=== PATIENT | female | born 1940 | race Caucasian/White ===

== ENCOUNTER 2017-07-16 23:00 | Inpatient (IN) | payer OTHER, MEDICARE ==
[~2017-07-16] VITALS: Ht 160 cm; Wt 61.8 kg
[2017-07-17] VITALS (27 sets, daily range): BP systolic 77–159; BP diastolic 45–72
[2017-07-17] MEDS ORDERED: ALBUTEROL SULF 2.5 MG/0.5ML(0.5%) NEB SOLN NEB ONE (00:45)
[2017-07-17] MEDS ORDERED: IPRATROPIUM BROM 0.5 MG/2.5ML INH SOL NEB ONE (00:45)
[2017-07-17] MEDS ORDERED: methylPREDNISolone SOD SUCC 125 MG/2 ML VL IV ONE (00:45)
[2017-07-17] MEDS ORDERED: ETOMIDATE (2MG/ML) 20ML VIAL IV ONE ×2 (01:21→02:00)
[2017-07-17] MEDS ORDERED: SUCCINYLCHOLINE CHLORIDE 20 MG/ML 10ML VIAL IV ONE ×2 (01:21→02:00)
[2017-07-17] MEDS ORDERED: MIDAZOLAM DRIP 50 mg/50mL 50 ML IV ONE (01:38)
[2017-07-17] MEDS: MIDAZOLAM DRIP 50 mg/50mL 50 ML IV SCH ×4 (02:07→22:41)
[2017-07-17 02:41] LABS: Urine Bacteria FEW /hpf (None Seen); Urine Blood TRACE /uL (Negative); Urine Mucus FEW (None Seen); Urine Specific Gravity 1.019 (1.001-1.035); Urine WBC 21 /hpf (0 - 5)
[2017-07-17] MEDS ORDERED: SODIUM CHLORIDE 0.9% 1,000 ML IV ONE (03:00)
[2017-07-17] MEDS ORDERED: MORPHINE SULFATE 4 MG/ML SYR/VIAL IV PRN (07:15)
[2017-07-17] MEDS ORDERED: NITROGLYCERIN 0.4 MG SL TAB SL PRN (07:15)
[2017-07-17] MEDS ORDERED: FUROSEMIDE 20 MG/2 ML VIAL IV ONE (07:45)
[2017-07-17 07:47] LABS: Basophils # (auto) 0 uL; Basophils % (auto) 0.5 % (0.0-2.0); Eosinophils # (auto) 0 uL; Hematocrit 33.4 % (36.0-46.0); Lymphocytes # (auto) 0.2 uL; Lymphocytes % (auto) 3.4 % (10.0-50.0); Mean Corpuscular Hgb Conc. 32.9 g/dL (32.0-36.0); Monocytes # (auto) 0.2 uL; Monocytes % (auto) 3.6 % (0.0-12.0); Neutrophils # (auto) 6.1 uL; Neutrophils % (auto) 92.5 % (37.0-80.0); Nucleated Red Blood Cells % 0.1 %; Platelet Count (auto) 174 10^3/uL (140-450); Red Blood Cells 3.67 10^6/uL (4.0-5.20); Red Cell Distribution Width 13.9 % (11.8-14.3); White Blood Cell 6.6 10^3/uL (4.4-10.8)
[2017-07-17 08:13] LABS: INR 0.98 (0.9-1.15); Partial Thromboplastin Time 25.9 sec (22.64-33.71); Prothrombin Time 10.7 sec (9.37-12.3)
[2017-07-17 08:18] LABS: Albumin 3.1 g/dL (3.4-5.0); BUN/Creatinine Ratio 25.6; Bilirubin, Total 0.3 mg/dL (0.2-1.0); Calcium 7.9 mg/dL (8.5-10.1); Potassium 3.7 mmol/L (3.5-5.1); Total Protein 6.8 g/dL (6.4-8.2)
[2017-07-17] MEDS: PANTOPRAZOLE 40 MG TAB PO SCH (10:00)
[2017-07-17] MEDS ORDERED: IOHEXOL 350 MG/ML 100ML IJ ONE (10:31)
[2017-07-17] MEDS ORDERED: LORazepam 2MG/ML-1ML VIAL IV PRN (12:30)
[2017-07-17] MEDS ORDERED: ASPirin 300 MG RECTAL SUPP PR ONE (12:30)
[2017-07-17] MEDS: ALBUTEROL SULF 2.5 MG/0.5ML(0.5%) NEB SOLN NEB SCH ×3 (12:33→23:46)
[2017-07-17] MEDS: IPRATROPIUM BROM 0.5 MG/2.5ML INH SOL NEB SCH ×3 (12:33→23:46)
[2017-07-17 13:53] LABS: Cholesterol 175 mg/dL (< 200); HDL Cholesterol 72 mg/dL (40-59); LDL Cholesterol 103 mg/dL (< 100); Triglycerides 48 mg/dL (< 150)
[2017-07-17] MEDS ORDERED: ONDANSETRON HCL 4 MG/2 ML VIAL IV PRN (16:45)
[2017-07-17] MEDS ORDERED: ACETAMINOPHEN 650 mg PER 20 mL UD GT PRN (16:45)
[2017-07-17] MEDS: methylPREDNISolone SOD SUCC 40 MG/ML VL IV SCH (17:50)
[2017-07-17] MEDS: FUROSEMIDE 20 MG/2 ML VIAL IV SCH (18:00)
[2017-07-17] MEDS: PIPERACILLIN-TAZOB 3.375GM 50 ML IV SCH (18:05)
[2017-07-17] MEDS: POTASSIUM CHL 10% (20 MEQ/15ML) 15ml ORAL SOLN GT SCH (18:05)
[2017-07-17] MEDS ORDERED: ALBUMIN 25% 50 ML IV ONE (18:15)
[2017-07-17] MEDS: ATORVASTATIN 20 MG TAB PO SCH (22:42)
[2017-07-17] MEDS: BUDESONIDE (INHALATION) 0.5 MG/2 ML NEB NEB SCH (23:46)
[2017-07-18] VITALS (91 sets, daily range): BP systolic 101–172; BP diastolic 44–83
[2017-07-18 03:56] LABS: Basophils # (auto) 0 uL; Basophils % (auto) 0.1 % (0.0-2.0); Eosinophils # (auto) 0 uL; Hematocrit 28.9 % (36.0-46.0); Hemoglobin 9.7 g/dL (12.2-16.2); Lymphocytes # (auto) 0.5 uL; Lymphocytes % (auto) 6.4 % (10.0-50.0); Mean Corpuscular Hemoglobin 30.1 pg (28.0-32.0); Mean Corpuscular Hgb Conc. 33.6 g/dL (32.0-36.0); Mean Corpuscular Volume 89.4 fL (80.0-100.0); Monocytes # (auto) 0.4 uL; Monocytes % (auto) 5.6 % (0.0-12.0); Neutrophils # (auto) 6.9 uL; Neutrophils % (auto) 87.9 % (37.0-80.0); Platelet Count (auto) 177 10^3/uL (140-450); Red Blood Cells 3.23 10^6/uL (4.0-5.20); White Blood Cell 7.8 10^3/uL (4.4-10.8)
[2017-07-18 04:06] LABS: BUN/Creatinine Ratio 36.6; Potassium 3.5 mmol/L (3.5-5.1)
[2017-07-18] MEDS: IPRATROPIUM BROM 0.5 MG/2.5ML INH SOL NEB SCH ×3 (05:35→19:11)
[2017-07-18] MEDS: ALBUTEROL SULF 2.5 MG/0.5ML(0.5%) NEB SOLN NEB SCH ×3 (05:35→19:11)
[2017-07-18] MEDS: BUDESONIDE (INHALATION) 0.5 MG/2 ML NEB NEB SCH ×2 (05:35→19:11)
[2017-07-18] MEDS: PIPERACILLIN-TAZOB 3.375GM 50 ML IV SCH ×4 (06:00→18:09)
[2017-07-18] MEDS: FUROSEMIDE 20 MG/2 ML VIAL IV SCH ×2 (06:09→18:03)
[2017-07-18] MEDS: methylPREDNISolone SOD SUCC 40 MG/ML VL IV SCH ×4 (06:09→18:04)
[2017-07-18] MEDS: MIDAZOLAM DRIP 50 mg/50mL 50 ML IV SCH (10:30)
[2017-07-18] MEDS: ENOXAPARIN SOD 40 MG/0.4 ML SYRINGE SC SCH (10:37)
[2017-07-18] MEDS: PANTOPRAZOLE 40 MG TAB PO SCH (10:38)
[2017-07-18] MEDS: POTASSIUM CHL 10% (20 MEQ/15ML) 15ml ORAL SOLN GT SCH ×2 (10:39→21:34)
[2017-07-18] MEDS ORDERED: Nutren Pulmonary 1 Liter GT SCH (14:15)
[2017-07-18] MEDS: ATORVASTATIN 20 MG TAB PO SCH (21:34)
[2017-07-18 22:16] LABS: Calcium 8.3 mg/dL (8.5-10.1); Magnesium 2.2 mg/dL (1.6-2.6); Potassium 3.5 mmol/L (3.5-5.1)
[2017-07-18 22:18] LABS: BUN/Creatinine Ratio 34.8
[2017-07-19] VITALS (89 sets, daily range): BP systolic 129–208; BP diastolic 57–126
[2017-07-19] MEDS: BUDESONIDE (INHALATION) 0.5 MG/2 ML NEB NEB SCH ×3 (00:08→19:25)
[2017-07-19] MEDS: ALBUTEROL SULF 2.5 MG/0.5ML(0.5%) NEB SOLN NEB SCH ×4 (00:08→19:25)
[2017-07-19] MEDS: IPRATROPIUM BROM 0.5 MG/2.5ML INH SOL NEB SCH ×4 (00:08→19:25)
[2017-07-19] MEDS: PIPERACILLIN-TAZOB 3.375GM 50 ML IV SCH ×5 (00:23→23:02)
[2017-07-19] MEDS: methylPREDNISolone SOD SUCC 40 MG/ML VL IV SCH ×5 (00:23→22:12)
[2017-07-19 04:37] LABS: BUN/Creatinine Ratio 35.4; Calcium 8.4 mg/dL (8.5-10.1); Potassium 3.9 mmol/L (3.5-5.1)
[2017-07-19] MEDS: MIDAZOLAM DRIP 50 mg/50mL 50 ML IV SCH (05:03)
[2017-07-19] MEDS: FUROSEMIDE 20 MG/2 ML VIAL IV SCH ×2 (05:15→18:22)
[2017-07-19] MEDS: POTASSIUM CHL 10% (20 MEQ/15ML) 15ml ORAL SOLN GT SCH ×2 (10:37→21:37)
[2017-07-19] MEDS: PANTOPRAZOLE 40 MG TAB PO SCH (10:37)
[2017-07-19] MEDS: ENOXAPARIN SOD 40 MG/0.4 ML SYRINGE SC SCH (10:38)
[2017-07-19] MEDS ORDERED: CARV25TA55 PO (12:37)
[2017-07-19] MEDS ORDERED: METOPROLOL TARTRATE 1MG/1ML-5ML VIAL IV PRN (17:30)
[2017-07-19] MEDS: CARVEDILOL 12.5 MG TAB PO SCH (21:37)
[2017-07-19] MEDS: ATORVASTATIN 20 MG TAB PO SCH (21:38)
[2017-07-20] VITALS (7 sets, daily range): BP systolic 116–174; BP diastolic 55–95
[2017-07-20 05:23] LABS: Basophils # (auto) 0 uL; Eosinophils # (auto) 0 uL; Hematocrit 34.3 % (36.0-46.0); Hemoglobin 11.6 g/dL (12.2-16.2); Lymphocytes # (auto) 0.4 uL; Lymphocytes % (auto) 4.8 % (10.0-50.0); Mean Corpuscular Hemoglobin 30.4 pg (28.0-32.0); Mean Corpuscular Hgb Conc. 33.9 g/dL (32.0-36.0); Mean Corpuscular Volume 89.8 fL (80.0-100.0); Monocytes # (auto) 0.5 uL; Monocytes % (auto) 6.5 % (0.0-12.0); Neutrophils # (auto) 6.5 uL; Neutrophils % (auto) 88.7 % (37.0-80.0); Nucleated Red Blood Cells % 0.1 %; Platelet Count (auto) 188 10^3/uL (140-450); Red Blood Cells 3.82 10^6/uL (4.0-5.20); Red Cell Distribution Width 14.1 % (11.8-14.3); White Blood Cell 7.4 10^3/uL (4.4-10.8)
[2017-07-20 05:31] LABS: BUN/Creatinine Ratio 40.9; Calcium 8.5 mg/dL (8.5-10.1); Potassium 3.5 mmol/L (3.5-5.1)
[2017-07-20] MEDS: PIPERACILLIN-TAZOB 3.375GM 50 ML IV SCH ×2 (05:52→12:00)
[2017-07-20] MEDS: FUROSEMIDE 20 MG/2 ML VIAL IV SCH ×2 (05:52→18:09)
[2017-07-20] MEDS: methylPREDNISolone SOD SUCC 40 MG/ML VL IV SCH ×3 (05:52→23:52)
[2017-07-20] MEDS: LEVOTHYROXINE SODIUM 50 MCG TAB PO SCH (05:52)
[2017-07-20] MEDS: ALBUTEROL SULF 2.5 MG/0.5ML(0.5%) NEB SOLN NEB SCH ×3 (06:25→18:33)
[2017-07-20] MEDS: IPRATROPIUM BROM 0.5 MG/2.5ML INH SOL NEB SCH ×3 (06:25→18:33)
[2017-07-20] MEDS: BUDESONIDE (INHALATION) 0.5 MG/2 ML NEB NEB SCH ×2 (06:26→18:34)
[2017-07-20] MEDS: CARVEDILOL 12.5 MG TAB PO SCH ×2 (09:49→22:30)
[2017-07-20] MEDS: ENOXAPARIN SOD 40 MG/0.4 ML SYRINGE SC SCH (09:53)
[2017-07-20] MEDS: PANTOPRAZOLE 40 MG TAB PO SCH (09:53)
[2017-07-20] MEDS: POTASSIUM CHL 10% (20 MEQ/15ML) 15ml ORAL SOLN GT SCH ×2 (09:54→22:30)
[2017-07-20] MEDS ORDERED: VANCOMYCIN PER PHARMACY 0 MG IV SCH (13:45)
[2017-07-20] MEDS: VANCOMYCIN 750 MG in D5W 5% 250 ML IV SCH (15:00)
[2017-07-20] MEDS: cefTAZidime 1 GM in SODIUM CHL 0.9% 50 ML IV SCH ×2 (15:52→22:30)
[2017-07-20] MEDS ORDERED: cefTRIAXone 1GM/10ml IVPUSH 10 ML IV SCH (21:00)
[2017-07-20] MEDS: ATORVASTATIN 20 MG TAB PO SCH (22:30)
[2017-07-21] VITALS (7 sets, daily range): BP systolic 105–151; BP diastolic 61–77
[2017-07-21] MEDS: IPRATROPIUM BROM 0.5 MG/2.5ML INH SOL NEB SCH ×4 (00:19→18:36)
[2017-07-21] MEDS: ALBUTEROL SULF 2.5 MG/0.5ML(0.5%) NEB SOLN NEB SCH ×4 (00:19→18:36)
[2017-07-21] MEDS: MIDAZOLAM DRIP 50 mg/50mL 50 ML IV SCH (01:52)
[2017-07-21 05:47] LABS: Albumin 2.9 g/dL (3.4-5.0); BUN/Creatinine Ratio 38.9; Bilirubin, Total 0.4 mg/dL (0.2-1.0); Calcium 8.6 mg/dL (8.5-10.1); Potassium 4.1 mmol/L (3.5-5.1); Total Protein 6.8 g/dL (6.4-8.2)
[2017-07-21] MEDS: cefTAZidime 1 GM in SODIUM CHL 0.9% 50 ML IV SCH ×3 (06:18→21:46)
[2017-07-21] MEDS: FUROSEMIDE 20 MG/2 ML VIAL IV SCH (06:18)
[2017-07-21] MEDS: LEVOTHYROXINE SODIUM 50 MCG TAB PO SCH (06:39)
[2017-07-21] MEDS: PANTOPRAZOLE 40 MG TAB PO SCH (09:44)
[2017-07-21] MEDS: POTASSIUM CHL 10% (20 MEQ/15ML) 15ml ORAL SOLN GT SCH (09:44)
[2017-07-21] MEDS: CARVEDILOL 12.5 MG TAB PO SCH ×2 (09:45→21:46)
[2017-07-21] MEDS: ENOXAPARIN SOD 40 MG/0.4 ML SYRINGE SC SCH (09:46)
[2017-07-21] MEDS: FLORASTOR (S. BOULARDII) 250 MG CAP PO SCH (10:55)
[2017-07-21] MEDS: methylPREDNISolone SOD SUCC 40 MG/ML VL IV SCH (12:09)
[2017-07-21] MEDS ORDERED: MIDAZOLAM DRIP 100 mg/100mL NS 100 ML IV SCH (14:00)
[2017-07-21] MEDS: VANCOMYCIN 750 MG in D5W 5% 250 ML IV SCH (15:08)
[2017-07-21] MEDS ORDERED: FUROSEMIDE 40 MG TAB PO SCH (18:00)
[2017-07-21] MEDS: ATORVASTATIN 20 MG TAB PO SCH (21:46)
[2017-07-22] MEDS: IPRATROPIUM BROM 0.5 MG/2.5ML INH SOL NEB SCH ×4 (00:07→18:31)
[2017-07-22] MEDS: ALBUTEROL SULF 2.5 MG/0.5ML(0.5%) NEB SOLN NEB SCH ×4 (00:07→18:31)
[2017-07-22 04:00] VITALS: BP 154/82
[2017-07-22] MEDS: cefTAZidime 1 GM in SODIUM CHL 0.9% 50 ML IV SCH ×3 (06:34→22:13)
[2017-07-22] MEDS: LEVOTHYROXINE SODIUM 50 MCG TAB PO SCH (06:34)
[2017-07-22 07:30] VITALS: BP 141/74
[2017-07-22] MEDS: methylPREDNISolone SOD SUCC 40 MG/ML VL IV SCH (10:23)
[2017-07-22] MEDS: CARVEDILOL 12.5 MG TAB PO SCH ×2 (10:24→22:12)
[2017-07-22] MEDS: POTASSIUM CHL 10% (20 MEQ/15ML) 15ml ORAL SOLN PO SCH (10:26)
[2017-07-22] MEDS: PANTOPRAZOLE 40 MG TAB PO SCH (10:26)
[2017-07-22] MEDS: ENOXAPARIN SOD 40 MG/0.4 ML SYRINGE SC SCH (10:26)
[2017-07-22] MEDS: FUROSEMIDE 40 MG TAB PO SCH (10:26)
[2017-07-22] MEDS: FLORASTOR (S. BOULARDII) 250 MG CAP PO SCH (11:49)
[2017-07-22 11:50] VITALS: BP 106/66
[2017-07-22] MEDS ORDERED: GABA300C10 PO (11:58)
[2017-07-22 15:50] VITALS: BP 119/63
[2017-07-22 19:56] VITALS: BP 114/64
[2017-07-22 21:16] VITALS: BP 117/64
[2017-07-22] MEDS: ATORVASTATIN 20 MG TAB PO SCH (22:12)
[2017-07-22] MEDS: GABAPENTIN 300 MG CAP PO SCH (22:12)
[2017-07-23] VITALS (7 sets, daily range): BP systolic 92–116; BP diastolic 49–69
[2017-07-23] MEDS: IPRATROPIUM BROM 0.5 MG/2.5ML INH SOL NEB SCH ×4 (00:19→19:22)
[2017-07-23] MEDS: ALBUTEROL SULF 2.5 MG/0.5ML(0.5%) NEB SOLN NEB SCH ×4 (00:19→19:22)
[2017-07-23] MEDS: cefTAZidime 1 GM in SODIUM CHL 0.9% 50 ML IV SCH ×3 (06:18→22:18)
[2017-07-23] MEDS: LEVOTHYROXINE SODIUM 50 MCG TAB PO SCH (06:19)
[2017-07-23] MEDS: CARVEDILOL 12.5 MG TAB PO SCH ×2 (10:00→22:17)
[2017-07-23] MEDS: GABAPENTIN 300 MG CAP PO SCH ×2 (10:07→22:18)
[2017-07-23] MEDS: FLORASTOR (S. BOULARDII) 250 MG CAP PO SCH (10:07)
[2017-07-23] MEDS: methylPREDNISolone SOD SUCC 40 MG/ML VL IV SCH (10:07)
[2017-07-23] MEDS: POTASSIUM CHL 10% (20 MEQ/15ML) 15ml ORAL SOLN PO SCH (10:07)
[2017-07-23] MEDS: FUROSEMIDE 40 MG TAB PO SCH (10:07)
[2017-07-23] MEDS: PANTOPRAZOLE 40 MG TAB PO SCH (10:08)
[2017-07-23] MEDS: ENOXAPARIN SOD 40 MG/0.4 ML SYRINGE SC SCH (10:08)
[2017-07-23 10:13] LABS: Albumin 2.7 g/dL (3.4-5.0); Bilirubin, Total 0.4 mg/dL (0.2-1.0); Calcium 8.4 mg/dL (8.5-10.1); Potassium 3.5 mmol/L (3.5-5.1); Total Protein 6.4 g/dL (6.4-8.2)
[2017-07-23] MEDS ORDERED: ATOR20TA50 PO (14:26)
[2017-07-23] MEDS ORDERED: FURO40TA4 PO (14:26)
[2017-07-23] MEDS ORDERED: CIPR-217 PO (14:26)
[2017-07-23] MEDS ORDERED: ALB5IS NEB (14:26)
[2017-07-23] MEDS ORDERED: POTA20TA53 PO (14:26)
[2017-07-23] MEDS: ATORVASTATIN 20 MG TAB PO SCH (22:18)
[2017-07-24] MEDS: IPRATROPIUM BROM 0.5 MG/2.5ML INH SOL NEB SCH ×3 (01:08→12:00)
[2017-07-24] MEDS: ALBUTEROL SULF 2.5 MG/0.5ML(0.5%) NEB SOLN NEB SCH ×3 (01:08→12:00)
[2017-07-24 05:46] VITALS: BP 107/62
[2017-07-24] MEDS: cefTAZidime 1 GM in SODIUM CHL 0.9% 50 ML IV SCH ×2 (06:55→14:30)
[2017-07-24] MEDS: LEVOTHYROXINE SODIUM 50 MCG TAB PO SCH (06:55)
[2017-07-24 09:00] VITALS: BP 93/51
[2017-07-24] MEDS: CARVEDILOL 12.5 MG TAB PO SCH (10:00)
[2017-07-24] MEDS: methylPREDNISolone SOD SUCC 40 MG/ML VL IV SCH (10:00)
[2017-07-24] MEDS: FLORASTOR (S. BOULARDII) 250 MG CAP PO SCH (10:59)
[2017-07-24] MEDS: GABAPENTIN 300 MG CAP PO SCH (11:00)
[2017-07-24] MEDS: FUROSEMIDE 40 MG TAB PO SCH (11:00)
[2017-07-24] MEDS: PANTOPRAZOLE 40 MG TAB PO SCH (11:00)
[2017-07-24] MEDS: ENOXAPARIN SOD 40 MG/0.4 ML SYRINGE SC SCH (11:00)
[2017-07-24] MEDS: POTASSIUM CHL 10% (20 MEQ/15ML) 15ml ORAL SOLN PO SCH (11:01)
[2017-07-24 13:00] VITALS: BP 117/57
[2017-07-24 17:00] VITALS: BP 120/67
== END 2017-07-24 19:22 | disposition home health service (06) | DRG 208 ==
LOC: EDBD 23:00 → ER 23:13 → TELE 23:14 → ICU WEST 07-17 19:50 → DOU IN ICU 07-19 23:12 → TELE-CENTR 07-23 01:55
PROVIDERS: ADMIT Nurse Practitioner Family; ATTEND Hospitalist
PROC: 5A1935Z Respiratory Ventilation, Less than 24 Consecutive Hours (ICD-10-PCS; principal; 2017-07-17)
PROC: 0BH17EZ Insertion of Endotracheal Airway into Trachea, Via Natural or Artificial Opening (ICD-10-PCS; 2017-07-17)
DX: J96.01 Acute respiratory failure with hypoxia (principal); I50.33 Acute on chronic diastolic (congestive) heart failure; G93.41 Metabolic encephalopathy; E87.2 Acidosis; J44.0 Chronic obstructive pulmonary disease with (acute) lower respiratory infection; N39.0 Urinary tract infection, site not specified; J44.1 Chronic obstructive pulmonary disease with (acute) exacerbation; I11.0 Hypertensive heart disease with heart failure; I27.20 Pulmonary hypertension, unspecified; E11.9 Type 2 diabetes mellitus without complications; B96.5 Pseudomonas (aeruginosa) (mallei) (pseudomallei) as the cause of diseases classified elsewhere; R56.9 Unspecified convulsions; D32.9 Benign neoplasm of meninges, unspecified; E78.5 Hyperlipidemia, unspecified; M24.542 Contracture, left hand; Z79.82 Long term (current) use of aspirin; Z79.899 Other long term (current) drug therapy; Z79.4 Long term (current) use of insulin; Z82.49 Family history of ischemic heart disease and other diseases of the circulatory system; Z90.11 Acquired absence of right breast and nipple; Z85.3 Personal history of malignant neoplasm of breast; Z88.2 Allergy status to sulfonamides; Z88.1 Allergy status to other antibiotic agents
CPT/HCPCS: 36415; 36600; 51702; 70450; 71045; 71275; 80048; 80053; 80061; 81001; 82805; 82962; 83735; 83880; 84484; 85025; 85379; 85610; 85730; 87040; 87070; 87077; 87081; 87086; 87088; 87186; 87205; 87400; 93005; 93306; 93886; 94002; 94003; 94640; 95819; 96365; 96375; 97116; 97163; 97530; 99291; J0330; J2250; J2543; J7060

== ENCOUNTER 2018-10-14 09:26 | Emergency (ER) | payer MEDICARE ==
[~2018-10-14] VITALS: Ht 149.9 cm; Wt 64.4 kg
[~2018-10-14 09:26] MED LIST: ALB5IS NEB; ATOR20TA50 PO; CARV25TA55 PO; CIPR-217 PO; FURO40TA4 PO; GABA300C10 PO; POTA20TA53 PO
[2018-10-14] MEDS ORDERED: ALBUTEROL SULF 2.5 MG/0.5ML(0.5%) NEB SOLN NEB ONE (10:00)
[2018-10-14] MEDS ORDERED: methylPREDNISolone SOD SUCC 125 MG/2 ML VL IV ONE (10:00)
[2018-10-14] MEDS ORDERED: FUROSEMIDE 40 MG/4 ML VIAL IV ONE (10:00)
[2018-10-14] MEDS ORDERED: IPRATROPIUM BROM 0.5 MG/2.5ML INH SOL NEB ONE (10:00)
[2018-10-14 10:15] LABS: Basophils # (auto) 0 uL; Basophils % (auto) 0.6 % (0.0-2.0); Eosinophils # (auto) 0.1 uL; Eosinophils % (auto) 0.9 % (0.0-7.0); Hematocrit 35.7 % (36.0-46.0); Hemoglobin 11.6 g/dL (12.2-16.2); Lymphocytes # (auto) 0.7 uL; Lymphocytes % (auto) 11.5 % (10.0-50.0); Mean Corpuscular Hemoglobin 28.4 pg (28.0-32.0); Mean Corpuscular Hgb Conc. 32.5 g/dL (32.0-36.0); Mean Corpuscular Volume 87.5 fL (80.0-100.0); Monocytes # (auto) 0.5 uL; Monocytes % (auto) 8.7 % (0.0-12.0); Neutrophils # (auto) 4.7 uL; Neutrophils % (auto) 78.3 % (37.0-80.0); Platelet Count (auto) 191 10^3/uL (140-450); Red Blood Cells 4.08 10^6/uL (4.0-5.20); Red Cell Distribution Width 13.9 % (11.8-14.3)
[2018-10-14 10:27] LABS: Albumin 3.5 g/dL (3.4-5.0); BUN/Creatinine Ratio 15.5; Calcium 8.8 mg/dL (8.5-10.1)
[2018-10-14 10:33] LABS: Bilirubin, Total 0.4 mg/dL (0.2-1.0); Total Protein 7.1 g/dL (6.4-8.2)
[2018-10-14 11:40] LABS: Urine Bacteria FEW /hpf (None Seen); Urine Blood TRACE /uL (Negative); Urine Mucus MODERATE (None Seen); Urine Specific Gravity 1.007 (1.001-1.035); Urine WBC 37 /hpf (0 - 5)
[2018-10-14 12:07] VITALS: BP 113/72
== END 2018-10-14 12:16 | disposition home or self-care (01) ==
LOC: ER 09:26
DX: I11.0 Hypertensive heart disease with heart failure (principal); I50.9 Heart failure, unspecified; J44.9 Chronic obstructive pulmonary disease, unspecified; E11.9 Type 2 diabetes mellitus without complications; E78.5 Hyperlipidemia, unspecified
CPT/HCPCS: 36415; 71045; 80053; 81001; 84484; 85025; 94640; 96374; 96375; 99284; J1940; J2930; J7030; J7611; J7644

== ENCOUNTER 2018-11-13 02:34 | Inpatient (IN) | payer MEDICARE ==
[~2018-11-13] VITALS: Ht 152.4 cm; Wt 63.9 kg
[2018-11-13 03:18] LABS: Basophils # (auto) 0.1 uL; Basophils % (auto) 1.1 % (0.0-2.0); Eosinophils # (auto) 0.1 uL; Eosinophils % (auto) 1.8 % (0.0-7.0); Hematocrit 35.9 % (36.0-46.0); Hemoglobin 11.4 g/dL (12.2-16.2); Lymphocytes # (auto) 0.6 uL; Lymphocytes % (auto) 10.3 % (10.0-50.0); Mean Corpuscular Hgb Conc. 31.8 g/dL (32.0-36.0); Mean Corpuscular Volume 88.1 fL (80.0-100.0); Monocytes # (auto) 0.3 uL; Monocytes % (auto) 5.3 % (0.0-12.0); Neutrophils # (auto) 4.7 uL; Neutrophils % (auto) 81.5 % (37.0-80.0); Platelet Count (auto) 268 10^3/uL (140-450); Red Blood Cells 4.08 10^6/uL (4.0-5.20); Red Cell Distribution Width 15.7 % (11.8-14.3); White Blood Cell 5.7 10^3/uL (4.4-10.8)
[2018-11-13 03:34] LABS: Albumin 3.6 g/dL (3.4-5.0); BUN/Creatinine Ratio 27.5; Calcium 9.1 mg/dL (8.5-10.1); Potassium 4.4 mmol/L (3.5-5.1)
[2018-11-13 03:40] LABS: Bilirubin, Total 0.6 mg/dL (0.2-1.0)
[2018-11-13] MEDS ORDERED: LEVO-28 PO (04:04)
[2018-11-13] MEDS ORDERED: LISI-646 PO (04:04)
[2018-11-13] MEDS ORDERED: PRO625LQ PO (04:04)
[2018-11-13] MEDS ORDERED: cefTRIAXone 1GM/50ML D5W 50 ML IV ONE (05:00)
[2018-11-13] MEDS ORDERED: FUROSEMIDE 20 MG/2 ML VIAL IV ONE (05:45)
[2018-11-13] MEDS ORDERED: FUROSEMIDE 40 MG/4 ML VIAL IV ONE ×2 (08:00→09:15)
[2018-11-13] MEDS ORDERED: ENOXAPARIN SOD 60 MG/0.6 ML SYRINGE SC ONE (09:15)
[2018-11-13 10:06] LABS: Urine Bacteria FEW /hpf (None Seen); Urine Blood Negative /uL (Negative); Urine Specific Gravity 1.018 (1.001-1.035); Urine WBC 12 /hpf (0 - 5)
[2018-11-13] MEDS ORDERED: MORPHINE SULF INJ 2 MG/ML SYRINGE 1ML IV PRN ×2 (11:00)
[2018-11-13] MEDS ORDERED: ONDANSETRON HCL 4 MG/2 ML VIAL IV PRN (11:00)
[2018-11-13] MEDS ORDERED: NITROGLYCERIN 0.4 MG SL TAB SL PRN (11:00)
[2018-11-13] MEDS ORDERED: ACETAMINOPHEN 500 MG TAB PO PRN (11:00)
[2018-11-13] MEDS ORDERED: CARISOPRODOL 350 MG TAB PO PRN (11:00)
[2018-11-13] MEDS: cefTRIAXone 1GM/50ML D5W 50 ML IV SCH (11:15)
[2018-11-13] MEDS: HYDROcodone-ACET 5/325MG TAB PO PRN ×2 (12:24→18:18)
--- NOTE | 2018-11-13 13:39 | NUR ---
Telemetry admit from ER MOG,TORI admitted to Telemetry unit after SBAR received. Patient oriented to Antionette Jose, primary RN, unit, room, bed, and unit policies regarding patient care and visiting hours. Patient now on continuous telemetry monitoring, tele box # 11 and telemetry reading on arrival to unit is . Patient placed on bedside oxygen, weighed by bedscale and encouraged to call if they need something. All questions and concerns addressed, patient verbalized understanding. Note:
[2018-11-13 14:27] VITALS: BP 107/64
[2018-11-13 15:12] VITALS: BP 107/64
[2018-11-13 17:00] VITALS: BP 105/56
[2018-11-13 21:43] VITALS: BP 100/55
[2018-11-13] MEDS: CARVEDILOL 3.125 MG TAB PO SCH (22:00)
[2018-11-13] MEDS: FAMOTIDINE (10MG/ML) 2ML VL IV SCH (22:00)
[2018-11-13] MEDS: ATORVASTATIN 20 MG TAB PO SCH (22:00)
[2018-11-14] VITALS (7 sets, daily range): BP systolic 97–138; BP diastolic 52–64
[2018-11-14 06:06] LABS: Basophils # (auto) 0.1 uL; Basophils % (auto) 1.5 % (0.0-2.0); Eosinophils # (auto) 0.2 uL; Eosinophils % (auto) 3.7 % (0.0-7.0); Hematocrit 36.2 % (36.0-46.0); Hemoglobin 11.9 g/dL (12.2-16.2); Lymphocytes # (auto) 1.3 uL; Lymphocytes % (auto) 25.6 % (10.0-50.0); Mean Corpuscular Hemoglobin 28.9 pg (28.0-32.0); Mean Corpuscular Hgb Conc. 32.7 g/dL (32.0-36.0); Mean Corpuscular Volume 88.1 fL (80.0-100.0); Monocytes # (auto) 0.5 uL; Neutrophils # (auto) 3.1 uL; Neutrophils % (auto) 60.2 % (37.0-80.0); Nucleated Red Blood Cells % 0.1 %; Platelet Count (auto) 278 10^3/uL (140-450); Red Blood Cells 4.11 10^6/uL (4.0-5.20); Red Cell Distribution Width 15.5 % (11.8-14.3); White Blood Cell 5.2 10^3/uL (4.4-10.8)
[2018-11-14 06:16] LABS: Calcium 9.1 mg/dL (8.5-10.1); Magnesium 2.2 mg/dL (1.6-2.6); Potassium 3.7 mmol/L (3.5-5.1)
[2018-11-14] MEDS ORDERED: ALBUTEROL SULF 2.5 MG/0.5ML(0.5%) NEB SOLN NEB PRN (06:30)
[2018-11-14] MEDS: cefTRIAXone 1GM/50ML D5W 50 ML IV SCH (08:58)
[2018-11-14] MEDS: CARVEDILOL 3.125 MG TAB PO SCH ×2 (10:00→21:23)
[2018-11-14] MEDS ORDERED: FUROSEMIDE 20 MG/2 ML VIAL IV SCH (10:00)
[2018-11-14] MEDS: BENAZEPRIL HCL 10 MG TAB PO SCH (10:27)
[2018-11-14] MEDS: FAMOTIDINE (10MG/ML) 2ML VL IV SCH ×2 (10:29→21:22)
--- NOTE | 2018-11-14 11:10 | NUR ---
Respiratory note: ROUTINE PRN MN TX CHECK. HR 74, RR 16, POX 98% ON 2L/M NASAL CANNULA, BREATH SOUNDS ARE CLEAR. NO SOB OR DISTRESS NOTED. PT WAS NOTIFY TO HAVE RT PAGE FOR MN TX.
--- NOTE | 2018-11-14 11:58 | NUR ---
OPENING SHIFT NOTE received report on patient. Pt is resting comfortably in bed. Denies pain at this time. Reports minor SOB. Declines Neb treatment at this time. Patient instructed to notify nurse when she feels she needs a nebulizer treatment. Call taylor left within reach. Bed in low locked position.
--- NOTE | 2018-11-14 12:02 | NUR ---
CHEST PAIN Patient complaining of chest pain 8/10 that started in left groin and radiated to center of chest. When asked to describe pain patient states "It just hurts". Patient asking for "Nitro", patient explained she takes nitro at home for chest pain. Educated on protocols.
--- NOTE | 2018-11-14 12:14 | NUR ---
EKG completed, signed by Dr Jean. Protocol initiated, vital signs stable. Will continue medicate as ordered and stay with patient.
[2018-11-14] MEDS: HYDROcodone-ACET 5/325MG TAB PO PRN (12:31)
--- NOTE | 2018-11-14 12:35 | NUR ---
CHEST PAIN RESOLVED.
--- NOTE | 2018-11-14 12:45 | NUR ---
ROUNDING Dr Jean rounding on patient. CT ordered.
--- NOTE | 2018-11-14 13:00 | NUR ---
OFF UNIT FOR CT
--- NOTE | 2018-11-14 13:30 | NUR ---
RETURN TO UNIT NO DISTRESS OR COMPLAINTS OF PAIN.
--- NOTE | 2018-11-14 19:25 | NUR ---
OPENING SHIFT NOTE ASSUMED CARE OF PATIENT FROM DAY SHIFT RN YAO. PATIENT RESTING IN BED WITH EVEN AND UNLABORED RESPIRATIONS. SHE IS A/O X4 WITH NO S/S OF DISTRESS/SOB. SHE REPORTS TOLERABLE (AT THIS TIME) ACHY PAIN THAT COMES AND GOES, IN THE LEFT HIP AREA, RANGING FROM 4/10-10/10 AND RADIATES THROUGHOUT THE GROIN AREA. PATIENT DENIES ANY RECENT FALLS. PATIENT REPOSITIONED. LEFT ARM FLACCID AND DO NOT USE EXTREMITY BAND IS ON. BED IS IN LOWEST POSITION, LOCKED, CALL LIGHT IN REACH. INSTRUCTED ON POC AND TO CALL FOR ASSIST PRN. WILL CONTINUE TO MONITOR.
--- NOTE | 2018-11-14 21:00 | NUR ---
Respiratory note: PT ASSESSED FOR PRN MED NEB TX. HR 72, RR 18, SPO2 99% ON 2L NC, BS CLEAR/DIMINISHED. NO SIGNS OF ANY RESPIRATORY DISTRESS NOTED. ADVISED PT TO PLEASE CALL IF TX IS NEEDED.
[2018-11-14] MEDS: ATORVASTATIN 20 MG TAB PO SCH (21:22)
[2018-11-15 05:00] VITALS: BP 104/55
[2018-11-15 06:13] LABS: Basophils # (auto) 0 uL; Basophils % (auto) 0.9 % (0.0-2.0); Eosinophils # (auto) 0.2 uL; Eosinophils % (auto) 3.1 % (0.0-7.0); Hematocrit 34.4 % (36.0-46.0); Hemoglobin 11.2 g/dL (12.2-16.2); Lymphocytes # (auto) 1.1 uL; Lymphocytes % (auto) 19.8 % (10.0-50.0); Mean Corpuscular Hemoglobin 28.7 pg (28.0-32.0); Mean Corpuscular Hgb Conc. 32.6 g/dL (32.0-36.0); Monocytes # (auto) 0.6 uL; Monocytes % (auto) 10.5 % (0.0-12.0); Neutrophils # (auto) 3.6 uL; Neutrophils % (auto) 65.7 % (37.0-80.0); Nucleated Red Blood Cells % 0.1 %; Platelet Count (auto) 249 10^3/uL (140-450); Red Blood Cells 3.92 10^6/uL (4.0-5.20); Red Cell Distribution Width 15.2 % (11.8-14.3); White Blood Cell 5.4 10^3/uL (4.4-10.8)
[2018-11-15 06:29] LABS: Calcium 8.7 mg/dL (8.5-10.1); Potassium 3.2 mmol/L (3.5-5.1)
[2018-11-15 06:31] LABS: BUN/Creatinine Ratio 34.3
--- NOTE | 2018-11-15 07:51 | NUR ---
CLOSING NOTE CARE TRANSFERRED TO DAY SHIFT ANTOLIN KINNEY
[2018-11-15 08:57] VITALS: BP 117/58
[2018-11-15] MEDS: cefTRIAXone 1GM/50ML D5W 50 ML IV SCH (09:59)
[2018-11-15] MEDS: BENAZEPRIL HCL 10 MG TAB PO SCH (09:59)
[2018-11-15] MEDS: CARVEDILOL 3.125 MG TAB PO SCH ×2 (10:00→22:00)
[2018-11-15] MEDS: FUROSEMIDE 20 MG/2 ML VIAL IV SCH (10:01)
[2018-11-15] MEDS: ASPirin-EC 81 mg tab PO SCH (10:01)
[2018-11-15] MEDS: FAMOTIDINE (10MG/ML) 2ML VL IV SCH (10:01)
--- NOTE | 2018-11-15 12:35 | NUR ---
here at bedside, spoke to patient regarding POC. Informed of potassium level 3.2 no orders received.
[2018-11-15 13:00] VITALS: BP 128/66
[2018-11-15] MEDS ORDERED: POTASSIUM CHL 20 Meq TABLET PO ONE (13:30)
[2018-11-15] MEDS ORDERED: LACTULOSE 20Gm/30ML SOLN PO ONE (14:00)
[2018-11-15 16:40] VITALS: BP 94/49
--- NOTE | 2018-11-15 17:00 | NUR ---
DAUGHTER AT BEDSIDE VISITING,UPDATED WITH PLAN OF CARE
--- NOTE | 2018-11-15 19:15 | NUR ---
OPENING SHIFT NOTE ASSUMED CARE OF PATIENT FROM DAY SHIFT ANTOLIN KINNEY. PATIENT RESTING IN BED WITH EVEN AND UNLABORED RESPIRATIONS. SHE IS A/O X4 WITH NO S/S OF DISTRESS/SOB. PATIENT DENIES ANY PAIN AT THIS TIME. BED IS IN LOWEST POSITION, LOCKED, CALL LIGHT IN REACH. INSTRUCTED ON POC AND TO CALL FOR ASSIST PRN. WILL CONTINUE TO MONITOR.
--- NOTE | 2018-11-15 20:48 | NUR ---
Respiratory note: PT IS CURRENTLY ON 2 L/M NC: HR 74, RR 16, SPO2 98% WITH CLEAR/DIM BS T/O. PT SHOWS NO S/S OF RESPIRATORY DISTRESS. INFORMED PT IF SOB TO CONTACT RESPIRATORY FOR BREATHING TX. WILL CONTINUE TO MONITOR
[2018-11-15 22:00] VITALS: BP 89/67
[2018-11-15] MEDS ORDERED: FAMOTIDINE 20 MG TAB PO SCH (22:00)
[2018-11-15] MEDS: ATORVASTATIN 20 MG TAB PO SCH (22:07)
[2018-11-16 05:00] VITALS: BP 98/51
--- NOTE | 2018-11-16 07:46 | NUR ---
CLOSING NOTE CARE TRANSFERRED TO DAY SHIFT ANTOLIN TSANG.
[2018-11-16 08:06] VITALS: BP 109/55
[2018-11-16] MEDS ORDERED: MORPHINE SULF INJ 2 MG/ML SYRINGE 1ML IV PRN ×2 (08:30)
[2018-11-16] MEDS ORDERED: HYDROcodone-ACET 5/325MG TAB PO PRN (08:30)
--- NOTE | 2018-11-16 08:30 | NUR ---
RECEIVED MICRO VALUE OF ESBL IN URINE CULTURE. BRYCE JONES MADE AWARE, ABX ORDERED. CONTACT ISOLATION PRECAUTIONS PUT IN PLACE.
[2018-11-16] MEDS ORDERED: ERTAPENEM SOD INJ 1 GM in SODIUM CHL 0.9% 50 ML IV SCH (10:00)
[2018-11-16] MEDS ORDERED: ENOXAPARIN SOD 40 MG/0.4 ML SYRINGE SC SCH (10:00)
[2018-11-16] MEDS ORDERED: SACU1TAB PO (10:15)
[2018-11-16] MEDS: CARVEDILOL 3.125 MG TAB PO SCH (10:23)
[2018-11-16] MEDS: FUROSEMIDE 20 MG/2 ML VIAL IV SCH (10:24)
[2018-11-16] MEDS: ASPirin-EC 81 mg tab PO SCH (10:24)
--- NOTE | 2018-11-16 11:32 | NUR ---
ORDER AND CLINICALS FAXED TO [facility], PHONE NUMBER [phone]. ORDER AND CLINICALS ALSO FAXED TO [facility] FOR RESUMPTION OF CARE. [phone]
[2018-11-16 12:05] VITALS: BP 111/60
[2018-11-16 12:20] VITALS: BP 109/55
--- NOTE | 2018-11-16 12:20 | NUR ---
MIDLINE RN DEPARTMENT CONTACTED AND MADE AWARE OF PATIENT'S NEED FOR MIDLINE PRIOR TO DISCHARGE.
--- NOTE | 2018-11-16 12:36 | NUR ---
PER [facility] THE COST TO THE PATIENT FOR THE IV INVANZ AND SUPPLIES WILL BE $966.54 PER WEEK. ANIA SS WILL TALK WITH THE PATIENT AND ADVISE HER OF THE COSTS. [facility] HAS ACCEPTED PATIENT WITH START OF CARE 11-17-18. [phone]
--- NOTE | 2018-11-16 12:49 | NUR ---
COPELAND CATHETER DISCONTINUED PER MD ORDER. PATIENT TOLERATED PROCEDURE WELL. 900ML URINE CLEAR YELLOW OUT FROM COLLECTING BAG.
--- NOTE | 2018-11-16 14:33 | NUR ---
Midline Placement Patient educated on need for midline placement. All risks and benefits explained and all questions and concerns addresses prior to procedure. 18g/10cm midline inserted via Right Basilic vein using Ultrasound. Sterile technique utilized. Blood return obtained from single lumen and flushed easily with NS using proper technique. Midline secured with saline lock; biodisc and occlusive dressing applied. Primary RN notified. Midline lot #[id number].
--- NOTE | 2018-11-16 14:37 | NUR ---
PATIENT AND DAUGHTER STATED THAT SHE WOULD RATHER GO TO SNF FOR IV ABX THERAPY. COMMUNICATED TO DR. WU, NAKIA ORDER AND DISCHARGE WITH SNF PLACEMENT ORDERED. ANIA CHANO. AWARE OF PLAN.
--- NOTE | 2018-11-16 14:47 | NUR ---
Respiratory note: ASSESSED PATIENT FOR PRN BREATHING TX. NO RESPIRATORY DISTRESS NOTED AT THIS TIME. PATIENT IS ON 0.5 L NASAL CANNULA, SPO2 96%, RR 16, HR 84. PATIENT IS AWARE TO HAVE RT PAGED IF BREATHING TX IS NEEDED AT A LATER TIME. WILL CONTINUE TO MONITOR PATIENT.
--- NOTE | 2018-11-16 15:25 | NUR ---
assessment Patient is a 78 year old female who is alert and oriented. Prior to admission patient lived home alone and functioned with assistance. Patient informed me she has a caregiver daily. Patient informed me her PCP is Dr Renay Watson. Patient informed me she has a cane and fww for home use. Per patient she will return home to her prior living arrangements post discharge and family will transport her home. I informed patient she has a right to speak to a social media assistant regarding all care. I informed patient she has a right to participate in any and all discharge planning. Patient is aware of visiting hours on the hospital floor. I informed patient she has a right to privacy. Patient does not have a POA and advanced directive. I have offered patient information on POA and advanced directives. I informed the patient the advantages and benefits of having an Advanced Directive. Patient verbalized understanding and agreed to discharge plan. Per ss consult SNF placement for IV Invanz, midline care and PT. Patient is requesting [facility]. MD order has been sent to [facility]. Per Aquilino ALBRIGHT pt has been accepted to room [address] Dr. Stokes. Family to transport pt to [facility]. Pt agrees to discharge plan to [facility]. Addendum: 11/16/18 at 1529 by Merissa YEE Amended: Links added.
--- NOTE | 2018-11-16 17:31 | NUR ---
IV CATHETER TO RFA#20 REMOVED, CATHETER INTACT, NO PHLEBITIS. TELE BOX REMOVED AND SENT TO [facility]. AWAITING ON FAMILY FOR RAILCAR BRAKE OPERATOR AND TRANSPORT TO [facility]. WILL CONTINUE TO MONITOR.
--- NOTE | 2018-11-16 17:50 | NUR ---
DISCHARGE INSTRUCTIONS GIVEN TO PATIENT AND FAMILY MEMBERS. ALL VERBALIZED UNDERSTANDING FOR PRESCRIPTION ORDERS AND FOLLOW UP APPOINTMENTS WITH PCP AND MACHINE LACER. PATIENT VOIDING WELL WITHOUT DIFFICULTIES PRIOR TO DISCHARGE. E[facility]RE[facility] PRESCRIPTION WAS PROVIDED TO PATIENT, FAMILY INSTRUCTED ON TAKING PRESCRIPTION TO [facility]. REPORT GIVEN TO ANTOLIN STREET ALL QUESTIONS AND CONCERNS ADDRESSED. PATIENT TRANSPORTED OUT OF UNIT VIA WHEELCHAIR, ACCOMPANIED BY FAMILY MEMBERS. NO DISTRESS NOTED.
[2018-11-16] MEDS ORDERED: SACUBITRIL-VALSARTAN 24mg/26mg TAB PO SCH (22:00)
== END 2018-11-16 17:55 | DRG 291 ==
LOC: ER 02:35 → TELE 11:01 → TELE-WESTW 13:56
PROVIDERS: ADMIT Nurse Practitioner Acute Care; ATTEND Internal Medicine
DX: I11.0 Hypertensive heart disease with heart failure (principal); J96.20 Acute and chronic respiratory failure, unspecified whether with hypoxia or hypercapnia; J44.1 Chronic obstructive pulmonary disease with (acute) exacerbation; N39.0 Urinary tract infection, site not specified; J91.8 Pleural effusion in other conditions classified elsewhere; K57.90 Diverticulosis of intestine, part unspecified, without perforation or abscess without bleeding; K59.00 Constipation, unspecified; E11.65 Type 2 diabetes mellitus with hyperglycemia; D63.8 Anemia in other chronic diseases classified elsewhere; E87.6 Hypokalemia; I50.43 Acute on chronic combined systolic (congestive) and diastolic (congestive) heart failure; B96.20 Unspecified Escherichia coli [E. coli] as the cause of diseases classified elsewhere; E78.5 Hyperlipidemia, unspecified; I25.10 Atherosclerotic heart disease of native coronary artery without angina pectoris; Z85.3 Personal history of malignant neoplasm of breast; Z90.13 Acquired absence of bilateral breasts and nipples; Z82.49 Family history of ischemic heart disease and other diseases of the circulatory system; Z79.899 Other long term (current) drug therapy; Z99.81 Dependence on supplemental oxygen; Z88.1 Allergy status to other antibiotic agents; Z88.2 Allergy status to sulfonamides
CPT/HCPCS: 36415; 71045; 74176; 80048; 80053; 80061; 81001; 83036; 83735; 83880; 84443; 84484; 85025; 87040; 87086; 87088; 87186; 93005; 93306; 94640; 96365; 96366; 96372; 96375; 96376; G0378; J0696; J1335; J3490

== ENCOUNTER → 2018-12-19 | Outpatient (CLI) | payer MEDICARE ==
[~2018-12-19] MED LIST changes: -CARV25TA55 PO; -CIPR-217 PO; +LEVO-28 PO; +PRO625LQ PO; +SACU1TAB PO
== END | disposition home or self-care (01) ==
LOC: Rad HDHVI 13:34
PROVIDERS: ATTEND Internal Medicine Cardiovascular Disease
DX: I65.23 Occlusion and stenosis of bilateral carotid arteries (principal); I08.8 Other rheumatic multiple valve diseases; J44.1 Chronic obstructive pulmonary disease with (acute) exacerbation
CPT/HCPCS: 93306; 93880

== ENCOUNTER → 2019-01-15 | Outpatient (CLI) | payer MEDICARE ==
[~2019-01-15] VITALS: Ht 149.9 cm; Wt 63.5 kg
[~2019-01-15] MED LIST changes: +ADENOSINE 53 MG in GIVE UN-DILUTED 0 ML IV ONE; +ADENOSINE 90 MG/30 ML INJ IV ONE
== END | disposition home or self-care (01) ==
LOC: Rad HDHVI 08:36
PROVIDERS: ATTEND Internal Medicine Cardiovascular Disease
DX: J44.9 Chronic obstructive pulmonary disease, unspecified (principal); I11.0 Hypertensive heart disease with heart failure; I50.33 Acute on chronic diastolic (congestive) heart failure; E03.9 Hypothyroidism, unspecified; M79.89 Other specified soft tissue disorders
CPT/HCPCS: 78452; 93005; 96374; 96375; A9500; J0153

== ENCOUNTER 2019-02-21 08:22 | Inpatient (IN) | payer MEDICARE | END 2019-02-22 16:10 | disposition home or self-care (01) | LOC: CATH 08:22 → TELE-WESTW 13:54 | PROC: 4A023N6 Measurement of Cardiac Sampling and Pressure, Right Heart, Percutaneous Approach (ICD-10-PCS; principal; ~2019-02-21) | PROC: 027135Z Dilation of Coronary Artery, Two Arteries with Two Drug-eluting Intraluminal Devices, Percutaneous Approach (ICD-10-PCS; ~2019-02-21) | PROC: B2111ZZ Fluoroscopy of Multiple Coronary Arteries using Low Osmolar Contrast (ICD-10-PCS; ~2019-02-21) | PROC: 4A033BC Measurement of Arterial Pressure, Coronary, Percutaneous Approach (ICD-10-PCS; ~2019-02-21) | PROC: B2151ZZ Fluoroscopy of Left Heart using Low Osmolar Contrast (ICD-10-PCS; ~2019-02-21) | DX: I25.10 Atherosclerotic heart disease of native coronary artery without angina pectoris (principal); I50.22 Chronic systolic (congestive) heart failure; Z99.81 Dependence on supplemental oxygen; J44.9 Chronic obstructive pulmonary disease, unspecified; I25.5 Ischemic cardiomyopathy; I27.29 Other secondary pulmonary hypertension ==

== ENCOUNTER 2019-02-24 12:45 | Emergency (ER) | payer MEDICARE ==
[~2019-02-24] VITALS: Ht 149.9 cm; Wt 63.5 kg
[~2019-02-24 12:45] MED LIST changes: -ADENOSINE 53 MG in GIVE UN-DILUTED 0 ML IV ONE; -ADENOSINE 90 MG/30 ML INJ IV ONE; -LEVO-28 PO; +LEVO75TA6 PO; +MULTTAB99 PO; +POTA-220 PO; -POTA20TA53 PO; -PRO625LQ PO; +SACC250C PO; +TURMPOW2 PO
[2019-02-24 14:03] LABS: Basophils # (auto) 0.1 uL; Eosinophils # (auto) 0.2 uL; Eosinophils % (auto) 3.6 % (0.0-7.0); Hematocrit 27.8 % (36.0-46.0); Hemoglobin 9.3 g/dL (12.2-16.2); Lymphocytes # (auto) 1.4 uL; Lymphocytes % (auto) 26.3 % (10.0-50.0); Mean Corpuscular Hemoglobin 29.8 pg (28.0-32.0); Mean Corpuscular Hgb Conc. 33.5 g/dL (32.0-36.0); Monocytes # (auto) 0.5 uL; Monocytes % (auto) 10.2 % (0.0-12.0); Neutrophils # (auto) 3.1 uL; Neutrophils % (auto) 58.9 % (37.0-80.0); Platelet Count (auto) 187 10^3/uL (140-450); Red Blood Cells 3.13 10^6/uL (4.0-5.20); Red Cell Distribution Width 14.9 % (11.8-14.3); White Blood Cell 5.3 10^3/uL (4.4-10.8)
[2019-02-24 14:13] LABS: Albumin 3.3 g/dL (3.4-5.0); BUN/Creatinine Ratio 26.5; Calcium 8.9 mg/dL (8.5-10.1); Potassium 3.6 mmol/L (3.5-5.1)
[2019-02-24 14:16] LABS: Bilirubin, Total 0.4 mg/dL (0.2-1.0); Total Protein 6.6 g/dL (6.4-8.2)
[2019-02-24 15:50] LABS: Urine Bacteria FEW /hpf (None Seen); Urine Blood Negative /uL (Negative); Urine Specific Gravity 1.009 (1.001-1.035); Urine WBC 23 /hpf (0 - 5)
[2019-02-24] MEDS ORDERED: cefTRIAXone 1GM/50ML D5W 50 ML IV ONE (16:30)
[2019-02-24 16:50] LABS: INR 0.93 (0.9-1.15); Partial Thromboplastin Time 26.6 sec (23.64-32.05)
[2019-02-24 17:56] VITALS: BP 120/61
[2019-03-14] MEDS ORDERED: APIX5TAB PO (11:16)
[2019-03-14] MEDS ORDERED: ATOR20TA50 PO (11:16)
[2019-03-14] MEDS ORDERED: PANT40T PO (11:16)
[2019-03-14] MEDS ORDERED: DIGO0.1238 PO (11:16)
[2019-03-14] MEDS ORDERED: TICA90TA PO (11:16)
[2019-03-14] MEDS ORDERED: AMIO200T4 PO (11:16)
== END 2019-02-24 17:57 | disposition home or self-care (01) ==
LOC: ER 12:45
DX: D64.9 Anemia, unspecified (principal); N39.0 Urinary tract infection, site not specified; E44.1 Mild protein-calorie malnutrition; G81.90 Hemiplegia, unspecified affecting unspecified side; I11.0 Hypertensive heart disease with heart failure; I50.9 Heart failure, unspecified; J44.9 Chronic obstructive pulmonary disease, unspecified; E11.9 Type 2 diabetes mellitus without complications; E78.5 Hyperlipidemia, unspecified; Z68.28 Body mass index [BMI] 28.0-28.9, adult; Z85.3 Personal history of malignant neoplasm of breast; Z88.2 Allergy status to sulfonamides; Z79.899 Other long term (current) drug therapy
CPT/HCPCS: 36415; 80053; 81001; 85025; 85610; 85730; 86850; 86900; 86901; 93005; 96365; 99284; J0696

== ENCOUNTER 2019-03-09 08:31 | Inpatient (IN) | payer MEDICARE ==
[~2019-03-09] VITALS: Ht 154.9 cm; Wt 72.1 kg
[2019-03-09] MEDS ORDERED: ASPirin 325 MG TAB PO ONE (08:45)
[2019-03-09] MEDS ORDERED: HEPARIN SODIUM (PORCINE) 5000 UNITS/ML 1ML VIAL IV ONE (08:45)
[2019-03-09] MEDS ORDERED: ONDANSETRON HCL 4 MG/2 ML VIAL ONE (08:51)
[2019-03-09] MEDS ORDERED: MORPHINE SULF INJ 2 MG/ML SYRINGE 1ML ONE (08:51)
[2019-03-09] MEDS ORDERED: ONDANSETRON HCL 4 MG/2 ML VIAL IV ONE (09:00)
[2019-03-09] MEDS ORDERED: MORPHINE SULF INJ 2 MG/ML SYRINGE 1ML IV ONE (09:00)
[2019-03-09] MEDS: SODIUM CHLOR 0.9% PF (SALINE LOCK) 10ML VIAL/SYR IV SCH ×2 (09:00→21:39)
[2019-03-09 09:11] LABS: Basophils # (auto) 0.1 uL; Basophils % (auto) 0.5 % (0.0-2.0); Eosinophils # (auto) 0.1 uL; Hematocrit 33.9 % (36.0-46.0); Hemoglobin 10.9 g/dL (12.2-16.2); Lymphocytes # (auto) 0.7 uL; Lymphocytes % (auto) 7.6 % (10.0-50.0); Mean Corpuscular Hemoglobin 29.1 pg (28.0-32.0); Mean Corpuscular Hgb Conc. 32.2 g/dL (32.0-36.0); Mean Corpuscular Volume 90.2 fL (80.0-100.0); Monocytes # (auto) 0.9 uL; Monocytes % (auto) 8.9 % (0.0-12.0); Neutrophils # (auto) 7.9 uL; Platelet Count (auto) 297 10^3/uL (140-450); Red Blood Cells 3.76 10^6/uL (4.0-5.20); White Blood Cell 9.6 10^3/uL (4.4-10.8)
[2019-03-09] MEDS ORDERED: LIDOCAINE 2%HCL (LOCAL ANESTH.) INJ 20ML MDV ONE (09:11)
[2019-03-09] MEDS ORDERED: IOHEXOL 350 MG/ML 100ML IJ ONE (09:11)
[2019-03-09] MEDS ORDERED: fentaNYL CITRATE 100 MCG/2 ML VL ONE (09:12)
[2019-03-09] MEDS ORDERED: ANGIOMAX 250 MG VIAL IV ONE ×2 (09:12→10:27)
[2019-03-09] MEDS ORDERED: MIDAZOLAM HCL 1MG/1ML-2 ML VIAL ONE (09:13)
[2019-03-09] MEDS ORDERED: SODIUM CHL 0.9% 50 ML ONE ×2 (09:13→10:28)
[2019-03-09 09:29] LABS: Albumin 3.8 g/dL (3.4-5.0); BUN/Creatinine Ratio 15.9; Calcium 9.3 mg/dL (8.5-10.1); Magnesium 2.2 mg/dL (1.6-2.6)
[2019-03-09 09:34] LABS: Bilirubin, Total 0.9 mg/dL (0.2-1.0); Total Protein 7.5 g/dL (6.4-8.2)
[2019-03-09] MEDS ORDERED: IODIXANOL 320MG/ML 100ML BTL IV ONE ×3 (09:35→10:44)
[2019-03-09] MEDS ORDERED: ATROPINE SULFATE 1 MG/1 ML VIAL ONE (09:39)
[2019-03-09] MEDS ORDERED: EPINEPHrine HCL 1 MG/10 ML SYRG ONE (09:39)
[2019-03-09] MEDS ORDERED: DOPamine 1600MCG/ML D5W 0 ML IV ONE (09:56)
[2019-03-09] MEDS: SACUBITRIL-VALSARTAN 24mg/26mg TAB PO SCH (10:00)
[2019-03-09] MEDS ORDERED: TICAGRELOR 90 MG TAB ONE (11:04)
[2019-03-09] MEDS ORDERED: CARVEDILOL 3.125 MG TAB PO ONE (11:45)
[2019-03-09] MEDS ORDERED: CARVEDILOL 3.125 MG TAB PO SCH (12:00)
--- NOTE | 2019-03-09 12:20 | NUR ---
Admit to [facility] from Reinsurance Clerk [facility] admitted to [facility] via gurney on quality assurance monitor chassis, and portable 02. Patient transferred to bed, connected to unit monitoring and oxygen, and weighed by bedscale. Patient oriented to KARLOS DURAN RN primary RN, unit, room, bed, and unit policies regarding patient care and visiting hours. All questions and concerns addressed, patient verbalized understanding. Assessment done, left groin cover with gauze and Tegaderm, no bleeding, left pedal pulse 3 +, right groin has bruises and ecchymosis, no complaining of chest pain noted, patient is alert and oriented, hard of hearing. Pupil 2 mm Reac to light both eyes, made aware that cannot bent left leg.
[2019-03-09 13:00] VITALS: BP 103/55
--- NOTE | 2019-03-09 13:00 | NUR ---
Helping patient with Lunch, patient had 1 cup of fruits and some soup, no N/V noted, patient stated that will take a nap for now.
--- NOTE | 2019-03-09 13:00 | NUR ---
IV removal left AC IV DC'd with sterile technique, catheter fully intact. Pressure dressing applied to site. Patient tolerated procedure well.
--- NOTE | 2019-03-09 13:35 | NUR ---
BP 92/53 mmHg, patient still sleeping, left groin has bleeding oozing a little bit, no active bleeding. still keep patient lying flat on the bed.
[2019-03-09 13:55] LABS: INR 1.83 (0.9-1.15)
[2019-03-09 13:57] LABS: Partial Thromboplastin Time 72.3 sec (23.64-32.05)
--- NOTE | 2019-03-09 14:30 | NUR ---
Families at the bedside, Sonia (daughter : SHAMA) [phone], plan of care discussed with families, patient woke up at this time, no chest pain noted, left groin no active bleeding or hematoma noted, pedal pulse 4 +, BP 107/71 mmHg, HR 110-120/min. Will continue to monitor and care.
[2019-03-09 16:05] VITALS: BP 115/60
--- NOTE | 2019-03-09 16:19 | NUR ---
Patient still sleeping, puncture site at the left groin still has oozing but no active bleeding or hematoma noted, left pedal pulse 4+, HR 110 /min, no fever, BP 99/54 mmHg, will continue to monitor and care.
--- NOTE | 2019-03-09 18:20 | NUR ---
Patient sitting up on the bed for Dinner, patient able to use her right arm feeding herself. Left groin no active bleeding or hematoma noted. No complaining of chest pain or SOB noted.
--- NOTE | 2019-03-09 19:10 | NUR ---
OPENING SHIFT RECEIVED REPORT FROM DAY SHIFT RN. ASSUMED CARE OF PATIENT. PATIENT IN BED SLEEPING WITH NO SIGNS OR SYMPTOMS OF SOB, PAIN OR DISTRESS. CURRENTLY ON 3L 02 NASAL CANNULA, 02 SAT - 99%. UPDATED PATENT ON PLAN OF CARE. RIGHT HAND AND RIGHT FOREARM IV - CLEAN/DRY/INTACT. LEFT GROIN S/P HEAR CATH - CLEAN/DRY/INTACT. REPOSITIONED FOR COMFORT. BED IN LOWEST POSITION, SIDE RAIL UP X2, CALL LIGHT WITHIN REACH. WILL CONTINUE TO MONITOR.
--- NOTE | 2019-03-09 19:36 | NUR ---
Contact number Sonia Brooks (daughter: POA) [phone] Kyle Rhodes (son) [phone] Merry Leone (daughter) [phone]
[2019-03-09 20:00] VITALS: BP 103/51
[2019-03-09] MEDS: TICAGRELOR 90 MG TAB PO SCH (21:39)
[2019-03-09] MEDS: ATORVASTATIN 20 MG TAB PO SCH (21:39)
[2019-03-09] MEDS: CARVEDILOL 3.125 MG TAB PO SCH (21:40)
[2019-03-10] VITALS (81 sets, daily range): BP systolic 80–130; BP diastolic 32–72
--- NOTE | 2019-03-10 00:12 | NUR ---
LULU HUGGINS IN REGARDS TO LOW BP AND HIGH HEART RATE. AWAITING CALL BACK. Addendum: 03/10/19 at 223 by KAROL HUGHES RN RN NOTED PATIENT IN AFIB RVR. Addendum: 03/10/19 at 233 by KAROL HUGHES RN RN LULU HUGGINS IN REGARDS TO LOW BP AND A TEMP OF 101.2 DEGREES FAHRENHEIT.
--- NOTE | 2019-03-10 00:25 | NUR ---
DR. HUGGINS CALLED BACK GAVE ORDERS FOR 1MG DIGOXIN SLOWLY - GIVE 0.5 MG 30 MINS APART. GAVE ORDERS TO START NORSYNEPHRINE. Addendum: 03/10/19 at 0235 by KAROL HUGHES RN RN DR. HUGGINS CALLED BACK AND GAVE ORDERS FOR 500 MLS BOLUS AND TYLENOL PO.
[2019-03-10] MEDS ORDERED: ACETAMINOPHEN 500 MG TAB PO PRN ×2 (00:30)
--- NOTE | 2019-03-10 00:35 | NUR ---
PAGED DR. HUGGINS IN REGARDS TO PATIENT NOW IN AFIB RVR 160S.
--- NOTE | 2019-03-10 00:38 | NUR ---
DR. HUGGINS CALLED BACK AND GAVE ORDERS FOR 1MG DIGOXIN SLOWLY, AND TO START NEOSYNEPHRINE.
[2019-03-10] MEDS: PHENYLEPHRINE INJ 20 MG in D5W 5% 250 ML IV SCH ×2 (01:00→09:25)
--- NOTE | 2019-03-10 01:00 | NUR ---
0.5 MG DIGOXIN GIVEN IV.
[2019-03-10] MEDS: DIGOXIN (250MCG/ML) 2 ML AMPULE ONE ×2 (01:12→02:08)
[2019-03-10] MEDS ORDERED: PHENYLEPHRINE HCL 10 MG/ML VL ONE (01:12)
--- NOTE | 2019-03-10 01:35 | NUR ---
0.5 MG DIGOXIN GIVEN IV
--- NOTE | 2019-03-10 02:50 | NUR ---
ROUNDS PATIENT IN BED SLEEPING WITH NO SIGNS OR SYMPTOMS OF SOB, PAIN OR DISTRESS. PATIENT IS STILL IN AFIB RVR IN THE 160s. WILL CONTINUE TO MONITOR.
[2019-03-10] MEDS: SODIUM CHLOR 0.9% PF (SALINE LOCK) 10ML VIAL/SYR IV SCH ×3 (06:26→21:29)
--- NOTE | 2019-03-10 06:30 | NUR ---
END OF SHIFT PATIENT IN BED SLEEPING WITH NO SIGNS OR SYMPTOMS OF SOB, PAIN OR DISTRESS. CURRENTLY ON 2L 02 NASAL CANNULA, 02 SAT - 100%. PATIENT'S HEART RATE HAS CONVERTED TO SINUS RHYTHM IN THE 70s. CURRENTLY ON NORSYNEPHRINE - SEE IV SPREADSHEET. RIGHT HAND AND RIGHT ANTECUBITAL IV - CLEAN/DRY/INTACT. REPOSITIONED FOR COMFORT. BED IN LOWEST POSITION, SIDE RAILS UP X2, CALL LIGHT WITHIN REACH. WILL ENDORSE CARE TO DAY SHIFT RN.
--- NOTE | 2019-03-10 07:45 | NUR ---
Opening Shift Note Assumed care of patient, sleeping on the bed, woke up by calling her name. No S/S of distress/SOB, still has pressure on the chest. Instructed on POC and to call for assist PRN, will continue to monitor for changes Q1hr and PRN.
--- NOTE | 2019-03-10 08:00 | NUR ---
Reviewed the monitor, EKG turned to SR with PAC around 6.22am HR 65-75/min, SBP 95-100 mmHg, still on Phenylephrine for keeping MAP>65 mmHg, will continue to monitor and care.
[2019-03-10 08:32] LABS: Basophils # (auto) 0.1 uL; Basophils % (auto) 0.6 % (0.0-2.0); Eosinophils # (auto) 0.1 uL; Eosinophils % (auto) 0.6 % (0.0-7.0); Lymphocytes # (auto) 0.7 uL; Lymphocytes % (auto) 5.9 % (10.0-50.0); Mean Corpuscular Hemoglobin 30.5 pg (28.0-32.0); Mean Corpuscular Hgb Conc. 33.5 g/dL (32.0-36.0); Mean Corpuscular Volume 91.2 fL (80.0-100.0); Monocytes # (auto) 1.3 uL; Monocytes % (auto) 10.5 % (0.0-12.0); Neutrophils # (auto) 10.2 uL; Neutrophils % (auto) 82.4 % (37.0-80.0); Platelet Count (auto) 276 10^3/uL (140-450); Red Blood Cells 2.96 10^6/uL (4.0-5.20); Red Cell Distribution Width 15.8 % (11.8-14.3); White Blood Cell 12.4 10^3/uL (4.4-10.8)
[2019-03-10 08:45] LABS: Albumin 2.6 g/dL (3.4-5.0); BUN/Creatinine Ratio 20.2; Calcium 8.6 mg/dL (8.5-10.1); Potassium 4.6 mmol/L (3.5-5.1)
[2019-03-10 08:47] LABS: Bilirubin, Total 1.1 mg/dL (0.2-1.0); Total Protein 6.2 g/dL (6.4-8.2)
--- NOTE | 2019-03-10 09:00 | NUR ---
Patient had breakfast around 80%, no N/V noted. Perineal care provided at this time as well.
[2019-03-10] MEDS: SACUBITRIL-VALSARTAN 24mg/26mg TAB PO SCH (09:34)
[2019-03-10] MEDS: ASPirin 81 mg TAB PO SCH (09:34)
[2019-03-10] MEDS: TICAGRELOR 90 MG TAB PO SCH ×2 (09:34→22:00)
[2019-03-10] MEDS ORDERED: ASPirin 81 mg TAB PO SCH (10:00)
[2019-03-10] MEDS: CARVEDILOL 3.125 MG TAB PO SCH ×3 (10:00→23:00)
--- NOTE | 2019-03-10 10:54 | NUR ---
Dr. Junior at the bedside, plan of care discussed with patient and her son, they made aware about the plan. Will continue aspirin and Brilinta, stop Effient.
--- NOTE | 2019-03-10 11:00 | NUR ---
Dr. Dave seen patient this morning, plan of care discussed with patient and her family, will keep patient in [facility] and monitor EKG and BP, they made aware about the plan and agreed.
--- NOTE | 2019-03-10 12:27 | NUR ---
SBP 95-100 mmHg, MAP around 65 mmHg, decreased phenylephrine to 15 mcg/min around this time, will continue to monitor. Will start PT when her blood pressure more stable.
[2019-03-10] MEDS ORDERED: PIPERACILLIN-TAZOB 3.375GM 100 ML IV ONE (12:45)
[2019-03-10] MEDS ORDERED: PANTOPRAZOLE 40 MG TAB PO ONE (13:00)
--- NOTE | 2019-03-10 13:24 | NUR ---
CXR obtained at the bedside.
--- NOTE | 2019-03-10 13:25 | NUR ---
Patient sitting up on the bed, had Lunch around 50%, no N/V noted. Perineal care provided, collected urine sample and sent to Lab at this time.
[2019-03-10 13:42] LABS: Urine Bacteria FEW /hpf (None Seen); Urine Blood Negative /uL (Negative); Urine Specific Gravity 1.028 (1.001-1.035); Urine WBC 240 /hpf (0 - 5); Urine WBC Clumps PRESENT /hpf (None Seen)
--- NOTE | 2019-03-10 13:47 | NUR ---
Changed the dressing at left groin, no hematoma or active bleeding noted, no redness or complaining of pain at the puncture site from patient. Clean around the wound with alcohol pad, and let it dry, cover with gauze and tape, will continue to monitor and care.
--- NOTE | 2019-03-10 13:55 | NUR ---
O2 saturation 100% with O2 NC 3 LPM, decreased to 2 LPM, will continue to monitor and care.
--- NOTE | 2019-03-10 15:10 | NUR ---
PT at the bedside, patient sitting on the chair.
--- NOTE | 2019-03-10 15:45 | NUR ---
Patient went back to the bed, BP 96/41 mmHg, will continue to monitor and care after stopped Phenylephrine.
--- NOTE | 2019-03-10 16:15 | NUR ---
BP still around 81/42 mmHg, HR 75/min with SR with rare PAC, paged Dr. Junior to call back, waiting a call from MD, charge nurse made aware.
--- NOTE | 2019-03-10 16:30 | NUR ---
Received a call back from Dr. Vernon MD made aware that stopped Phenylephrine around 1 hour ago then SBP still around 80 mmHg, MAP 48 mmHg, received order for NS 500 ml bolus x 1, and re start Phenylephrine to keep MAP > 65mmHg, charge nurse made aware.
--- NOTE | 2019-03-10 16:35 | NUR ---
IV removal right forearm IV DC'd with sterile technique, catheter fully intact. Pressure dressing applied to site. Patient tolerated procedure well.
--- NOTE | 2019-03-10 16:40 | NUR ---
IV insertion IV access obtained, via clean sterile technique by inserting 22 gauge catheter at right forearm after 1 attempt. IV secured properly. No trauma to site. Patient tolerated well.
[2019-03-10] MEDS ORDERED: SODIUM CHLORIDE 0.9% 500 ML IV ONE (16:45)
[2019-03-10] MEDS: PIPERACILLIN-TAZOB 3.375GM 100 ML IV SCH (17:49)
[2019-03-10] MEDS: Ensure Enlive Strawberry 8oz Bottle PO SCH (17:49)
--- NOTE | 2019-03-10 18:06 | NUR ---
Patient made aware that will transfer to ICU 109 for close monitor and medication management, called and talked to Sonia (daughter) [phone], she made aware about transferring to ICU and already updated her condition.
--- NOTE | 2019-03-10 18:42 | NUR ---
[facility] pt transferred to ICU MOG,TORI transferred to ICU 109 via hospital bed, on bus monitor and portable 02. All patient medications and personal belongings transferred with patient to receiving floor. Patient care transferred to Fred RN, made aware that Hold Coreg this morning (Dr. Junior also made aware), on Phenylephrine iv 20 mcg/min, BP 113/66 mmHg, HR 93 /min with SR and rare PAC, on O2 NC 2 LPM, O2 saturation 100%.
--- NOTE | 2019-03-10 18:50 | NUR ---
TRANSFER TO ICU PATIENT ARRIVED IN THE ICU. VITAL SIGNS STABLE. BED SET TO LOWEST SETTING. FALL AND SAFETY PRECAUTIONS IN PLACE.
--- NOTE | 2019-03-10 19:18 | NUR ---
CLOSING NOTE GAVE REPORT TO NOC RN. PATIENT RESTING IN BED WITH CALL LIGHT WITHIN REACH. VSS. FALL AND SAFETY PRECAUTIONS IN PLACE.
[2019-03-10] MEDS: ATORVASTATIN 20 MG TAB PO SCH (21:30)
[2019-03-11] VITALS (71 sets, daily range): BP systolic 73–183; BP diastolic 32–102
[2019-03-11] MEDS ORDERED: PHENYLEPHRINE HCL 10 MG/ML VL ONE ×2 (01:15→05:45)
[2019-03-11] MEDS: PHENYLEPHRINE INJ 20 MG in D5W 5% 250 ML IV SCH ×4 (01:40→17:15)
--- NOTE | 2019-03-11 03:10 | NUR ---
PT HAD FREQUENT PAC'S DURING THE LAST HR, NOW IN AF 100- 121. DR HUGGINS NOTIFIED, AMIODARONE PROTOCOL ORDERED AND STARTED WITH THE 150 MG BOLUS.
[2019-03-11] MEDS ORDERED: AMIODARONE HCL 150 MG in D5W 5% 100 ML IV ONE (03:15)
[2019-03-11] MEDS: AMIODARONE HCL 900 MG IV ONE ×2 (03:17→03:25)
[2019-03-11] MEDS ORDERED: AMIODARONE HCL (50 MG/ ML) 3 ML VIAL IV ONE (03:17)
[2019-03-11] MEDS ORDERED: AMIODARONE HCL 900 MG in DEXTROSE 500 ML IV SCH ×2 (03:19→09:19)
--- NOTE | 2019-03-11 03:45 | NUR ---
AMIODARONE NOW RUN AT 1MG, PT'S BP DROPPED AFTER THE BOLUS, NEOSYNEPHRINE TITRATED UP TO 120 MCG.
[2019-03-11 04:32] LABS: Basophils # (auto) 0 uL; Basophils % (auto) 0.5 % (0.0-2.0); Eosinophils # (auto) 0.3 uL; Eosinophils % (auto) 2.7 % (0.0-7.0); Hematocrit 26.1 % (36.0-46.0); Hemoglobin 8.9 g/dL (12.2-16.2); Lymphocytes # (auto) 0.8 uL; Lymphocytes % (auto) 8.4 % (10.0-50.0); Mean Corpuscular Hemoglobin 30.8 pg (28.0-32.0); Mean Corpuscular Hgb Conc. 33.9 g/dL (32.0-36.0); Mean Corpuscular Volume 90.9 fL (80.0-100.0); Monocytes # (auto) 0.8 uL; Neutrophils # (auto) 7.4 uL; Neutrophils % (auto) 79.4 % (37.0-80.0); Platelet Count (auto) 241 10^3/uL (140-450); Red Blood Cells 2.88 10^6/uL (4.0-5.20); White Blood Cell 9.4 10^3/uL (4.4-10.8)
--- NOTE | 2019-03-11 04:40 | NUR ---
PT'S HR STABILIZED TO 70S, REMAINS IN AF. STARTING TO TITRATE DOWN DEV, POSSIBLE.
[2019-03-11 04:49] LABS: Potassium 3.9 mmol/L (3.5-5.1)
[2019-03-11 04:52] LABS: Albumin 2.4 g/dL (3.4-5.0); BUN/Creatinine Ratio 20.4; Calcium 8.3 mg/dL (8.5-10.1); Magnesium 2.3 mg/dL (1.6-2.6)
--- NOTE | 2019-03-11 04:59 | NUR ---
PT'S HR SLOWS INTERMITENTLY, OCCASIONAL 3SEC. PAUSES; AMIODARONE CHANGED TO 0.5 MG, WILL INFORM MD IN AM.
[2019-03-11 05:01] LABS: Bilirubin, Total 0.9 mg/dL (0.2-1.0); Total Protein 5.6 g/dL (6.4-8.2)
[2019-03-11 05:09] LABS: INR 1.01 (0.9-1.15)
[2019-03-11] MEDS: PIPERACILLIN-TAZOB 3.375GM 100 ML IV SCH ×2 (06:00)
[2019-03-11] MEDS: SODIUM CHLOR 0.9% PF (SALINE LOCK) 10ML VIAL/SYR IV SCH ×3 (06:07→22:00)
[2019-03-11] MEDS: LEVOTHYROXINE SODIUM 25 MCG TAB PO SCH (06:11)
--- NOTE | 2019-03-11 06:34 | NUR ---
Respiratory note: PT AWAKE AND ALERT. NO RESPIRATORY DISTRESS NOTED. SPO2 99% ON 2L NC, HR 86, RR 24, BS CLEAR./DIMINISHED T/O. PRN MEDNEB TX NOT INDICATED AT THIS TIME. PT INFORMED TO PUSH CALL BUTTON IF INCREASED WOB, SOB, OR WHEEZING OCCURS.
--- NOTE | 2019-03-11 06:38 | NUR ---
PT HAS ANOTHER EPISODE OF 4 SEC PAUSE FOLLOWED BY JUNCTIONAL RHYTHM PT. HAD NO C/O CHEST PAIN OR SOB.AMIODARONE TURNED OFF,WILL INFORM MD,BP STABLE, TITRATING DOWN THE PHENYLEPHRINE.
--- NOTE | 2019-03-11 07:00 | NUR ---
DR HUGGINS AWARE OF HAVING TO STOP THE AMIODARONE, PACEMAKER CONSIDERED.
[2019-03-11] MEDS: Ensure Enlive Strawberry 8oz Bottle PO SCH ×3 (08:00→17:15)
--- NOTE | 2019-03-11 09:00 | NUR ---
Nutrition Patient given breakfast tray, requiring minimum assistance. Pt tolerated well, at 50%.
[2019-03-11] MEDS ORDERED: OPTISON 3ml Vial for INJ IV ONE (09:25)
--- NOTE | 2019-03-11 09:30 | NUR ---
PAYROLL TAX SPECIALIST AT BEDSIDE WITH OPTISON ADMINISTRATION. NO REACTION. SEE INTERVENTION.
--- NOTE | 2019-03-11 09:53 | NUR ---
CARDIOLOGY HARDNESS TESTER DANAE AT BEDSIDE AWARE OF OCCURANCE THROUGHOUT SHIFT WITH APPROX. 4 EPISODES OF BRADYCARDIA/ 40. PT ASYMPTOMATIC. EKG REVIEWED. SEE NEW ORDERS. POSSIBLE PACEMAKER INSERTION. PT NPO AT THIS TIME. HARDNESS TESTER SPOKE TO PATIENT AND VERBALIZED UNDERSTANDING. Addendum: 03/11/19 at 0955 by Lauren Knapp RN EXTERNAL PACER PADS APPLIED.
[2019-03-11] MEDS: ENOXAPARIN SOD 80 MG/0.8ML SYRINGE SC SCH (10:00)
[2019-03-11] MEDS: SACUBITRIL-VALSARTAN 24mg/26mg TAB PO SCH (10:00)
--- NOTE | 2019-03-11 10:00 | NUR ---
Elimination Patient had a soft, brown, moderate bm and urinating via bedpan. Skin cleansed. Pt tolerated well.
[2019-03-11] MEDS ORDERED: SODIUM CHLORIDE 0.9% 1,000 ML IV SCH (10:14)
--- NOTE | 2019-03-11 10:30 | NUR ---
HOLD P.T. TODAY PER RN
[2019-03-11] MEDS: PANTOPRAZOLE 40 MG TAB PO SCH (10:50)
[2019-03-11] MEDS: TICAGRELOR 90 MG TAB PO SCH ×2 (10:50→22:00)
[2019-03-11] MEDS: ASPirin 81 mg TAB PO SCH (10:51)
[2019-03-11] MEDS ORDERED: SACC1CAP3 PO (11:37)
[2019-03-11] MEDS ORDERED: CLOP75TA28 PO (11:38)
[2019-03-11] MEDS ORDERED: cefTRIAXone 1GM/50ML D5W 50 ML IV ONE (12:00)
--- NOTE | 2019-03-11 14:08 | NUR ---
Cardiac pauses Patient had 5 sec pause. Patient sleeping at the tie with no distress noted per Charge nurse covering. Strip shown to Dr. Junior. New order in place for Dopamine gtt.
[2019-03-11] MEDS: DOPamine 1600MCG/ML D5W 250 ML IV SCH (14:52)
--- NOTE | 2019-03-11 14:58 | NUR ---
DOPAMINE GTT STARTED AT 1MCG PATIENT HR IS NOTED AT AFIB 70S TO 130'S WITH ACTIVITY. AFIB 130'S DOES NOT SUSTAIN. DEV AT 60MCG AT THIS TIME. WILL TITRATE DEV IF PATIENT TOLERATES DOPAMINE WELL.
--- NOTE | 2019-03-11 15:25 | NUR ---
Patient tolerating dopamine at 2mcg, hr afib 77-110. BP 98/42 RR 24 POX 100% ON 2L/MIN NC.
--- NOTE | 2019-03-11 15:36 | NUR ---
Cardiac Pauses Patient had 3 sec pause. Lying in her bed in semi-fowlers, asymptomatic. Dopamine increased to 2.5mcg. VSS. Hr 80's. Will continue to monitor.
--- NOTE | 2019-03-11 18:29 | NUR ---
Respiratory note: PT RECIEVED ON NC2L. PT AWAKE AND ALERT WITH NO RESP DISTRESS NOTED. PT STATES SHE DOESN'T NEED A BREATHING TX. BS CLR/DIM T/O. SPO2 97%, HR 97, RR 22.
--- NOTE | 2019-03-11 18:30 | NUR ---
Nausea Patient having some nausea stating ensure she drank was too sweet and upset her stomach. No prn ordered at this time. Hospitalist paged, awaiting callback.
--- NOTE | 2019-03-11 18:45 | NUR ---
IV removal IV DC'd with sterile technique, catheter fully intact. Pressure dressing applied to site. Patient tolerated procedure well. NOTE:
--- NOTE | 2019-03-11 18:50 | NUR ---
Iv attempted with iv finder but unsuccessful at this time. Oncoming nurse to follow. Addendum: 03/11/19 at 1854 by Lauren Knapp RN Bp cuff changed to left forearm. Right arm restricted per Patient hx. Ivs to be attempted only to left arm.
--- NOTE | 2019-03-11 19:00 | NUR ---
OPENING NOTE ASSUMED CARE OF PT AT THIS TIME. REPORT RECEIVED FROM DAY SHIFT RN. POC REVIEWED. HEAD TO TOE ASSESSMENT COMPLETE, SEE INTERVENTION SPREADSHEET FOR COMPLETE DETAILS. RECEIVED PT ALERT AND ORIENTED X4.RECEIVED PT ON DOPAMINE GTT. IV SITE BENIGN.SUCTION AND BVM AT BEDSIDE. BED LOCKED AND IN LOWEST POSITION, SAFETY PRECAUTIONS IN PLACE. CALL LIGHT WITHIN REACH. WILL MONITOR PT CAREFULLY.
--- NOTE | 2019-03-11 20:15 | NUR ---
VOIDING PT PLACED ON BED VEE TO VOID. PT TOLERATED WELL.
[2019-03-11] MEDS ORDERED: ONDANSETRON HCL 4 MG/2 ML VIAL IV PRN (21:15)
--- NOTE | 2019-03-11 21:15 | NUR ---
hospitalist paged orders received for zofran for nausea.
[2019-03-11] MEDS: ATORVASTATIN 20 MG TAB PO SCH (22:47)
--- NOTE | 2019-03-11 22:53 | NUR ---
2200 blood thinners held d/t pt procedure tomorrow, request.
[2019-03-12] VITALS (28 sets, daily range): BP systolic 82–168; BP diastolic 44–113
--- NOTE | 2019-03-12 00:15 | NUR ---
NPO PER MD ORDER. FLUIDS STARTED AT THIS TIME PER MD ORDER, 60 MG/HR.
--- NOTE | 2019-03-12 01:22 | NUR ---
VOIDING/ HR INCREASE PT SAT UP TO PLACE ON BED VEE. PT HR INCREASE TO 138 AND SUSTAINED TILL PT BACK TO SEMI FOWLERS POSITIONS. PT VOIDED 250 MLS. HR 95 AT THIS TIME.
--- NOTE | 2019-03-12 02:15 | NUR ---
IV ATTEMPT THIS RN ATTEMPTED TO START PERIPHERAL IV USING VEIN FINDING. UNABLE TO SUCCESSFULLY START IV AT THIS TIME.
[2019-03-12] MEDS: PHENYLEPHRINE INJ 20 MG in D5W 5% 250 ML IV SCH ×2 (03:00→11:20)
[2019-03-12 04:21] LABS: Basophils # (auto) 0.1 uL; Basophils % (auto) 0.8 % (0.0-2.0); Eosinophils # (auto) 0.3 uL; Eosinophils % (auto) 4.4 % (0.0-7.0); Hematocrit 27.5 % (36.0-46.0); Hemoglobin 9.2 g/dL (12.2-16.2); Lymphocytes % (auto) 16.2 % (10.0-50.0); Mean Corpuscular Hemoglobin 30.3 pg (28.0-32.0); Mean Corpuscular Hgb Conc. 33.3 g/dL (32.0-36.0); Mean Corpuscular Volume 91.1 fL (80.0-100.0); Monocytes # (auto) 0.6 uL; Monocytes % (auto) 8.7 % (0.0-12.0); Neutrophils # (auto) 4.5 uL; Neutrophils % (auto) 69.9 % (37.0-80.0); Platelet Count (auto) 257 10^3/uL (140-450); Red Blood Cells 3.02 10^6/uL (4.0-5.20); White Blood Cell 6.4 10^3/uL (4.4-10.8)
[2019-03-12 04:45] LABS: Calcium 8.9 mg/dL (8.5-10.1)
--- NOTE | 2019-03-12 04:45 | NUR ---
VOIDING PT PLACED ON BED VEE, VOIDED 300 MLS. PT TOLERATED WELL.
[2019-03-12 04:47] LABS: BUN/Creatinine Ratio 19.8
[2019-03-12 04:58] LABS: INR 0.95 (0.9-1.15); Partial Thromboplastin Time 29.9 sec (23.64-32.05)
[2019-03-12] MEDS: SODIUM CHLOR 0.9% PF (SALINE LOCK) 10ML VIAL/SYR IV SCH ×3 (06:00→22:49)
--- NOTE | 2019-03-12 06:29 | NUR ---
EKG COMPLETE AT THIS TIME PER MD ORDER
--- NOTE | 2019-03-12 06:29 | NUR ---
AM HYGIENE COMPLETE AT THIS TIME. PT TOLERATED WELL.
[2019-03-12] MEDS: LEVOTHYROXINE SODIUM 25 MCG TAB PO SCH (06:45)
--- NOTE | 2019-03-12 07:55 | NUR ---
PATIENTS DAUGHTER AT BEDSIDE
[2019-03-12] MEDS: Ensure Enlive Strawberry 8oz Bottle PO SCH ×3 (08:00→18:00)
[2019-03-12] MEDS ORDERED: LIDOCAINE 2%HCL (LOCAL ANESTH.) INJ 20ML MDV ONE (08:14)
--- NOTE | 2019-03-12 08:20 | NUR ---
INSPECTOR QUALITY ASSURANCE TEAM AT BEDSIDE TO TAKE PATIENT FOR PACEMAKER PROCEDURE CONNECTED TO PORTABLE SECURITY SYSTEM ADMINISTRATOR, ON DOPAMINE DRIP, PATIENTS VITALS STABLE AT TIME OF TRANSPORT.
[2019-03-12] MEDS ORDERED: ceFAZolin 1GM/50ML 0 ML IV ONE (08:37)
[2019-03-12] MEDS ORDERED: MIDAZOLAM HCL 1MG/1ML-2 ML VIAL ONE (08:40)
[2019-03-12] MEDS ORDERED: VANCOMYCIN HCL 1000 MG VL ONE (08:40)
[2019-03-12] MEDS ORDERED: fentaNYL CITRATE 100 MCG/2 ML VL ONE (08:40)
[2019-03-12] MEDS ORDERED: VANCOMYCIN 1GM/250ML 250 ML IV ONE (08:40)
[2019-03-12] MEDS ORDERED: IOHEXOL 350 MG/ML 100ML IJ ONE (08:46)
[2019-03-12] MEDS: DOPamine 1600MCG/ML D5W 250 ML IV SCH (09:35)
--- NOTE | 2019-03-12 09:41 | NUR ---
RECEIVED PATIENT FROM CITY ADMINISTRATOR PATIENT DROWSY BUT APPROPRIATE, BANDAGE TO LEFT UPPER CHEST FROM PACEMAKER PLACEMENT. ICE BAG APPLIED.CONNECTED TO BEDSIDE MONITOR. PATIENT INFORMED NOT TO MOVE LEFT ARM, VERBALIZED UNDERSTANDING. PATIENT DENIES PAIN AT THIS TIME. BED IN LOW POSITION. WITHIN VIEW OF NURSES STATION. WILL CONTINUE TO MONITOR
[2019-03-12] MEDS: ENOXAPARIN SOD 80 MG/0.8ML SYRINGE SC SCH (10:00)
--- NOTE | 2019-03-12 10:00 | NUR ---
PATIENTS FAMILY AT BEDSIDE
--- NOTE | 2019-03-12 11:33 | NUR ---
Respiratory note: ASSESSED PT FOR PRN TX PT WAS ASLEEP, NO DISTRESS NOTED. HR 82, RR 18, SPO2 100% ON 2L N/C. BS ARE CLEAR AND DIMINISHED. NO INDICATION FOR TX AT THIS TIME. PT KNOWS TO HAVE RT PAGED IF TX IS NEEDED.
[2019-03-12] MEDS: cefTRIAXone 1GM/50ML D5W 50 ML IV SCH (12:21)
[2019-03-12] MEDS: PANTOPRAZOLE 40 MG TAB PO SCH (13:21)
[2019-03-12] MEDS: ASPirin 81 mg TAB PO SCH (13:21)
[2019-03-12] MEDS: SACUBITRIL-VALSARTAN 24mg/26mg TAB PO SCH (13:21)
[2019-03-12] MEDS: TICAGRELOR 90 MG TAB PO SCH ×2 (13:21→22:38)
--- NOTE | 2019-03-12 14:00 | NUR ---
PACEMAKER SITE SMALL AMOUNT OF BLEEDING NOTED ON TEGADERM. NO HEMATOMA OR ECCHYMOSIS NOTED. PATIENT DENIES PAIN.
--- NOTE | 2019-03-12 14:10 | NUR ---
SPOKE WITH DR MCFARLANE INFORMED HER PATIENT IS REQUESTING TO BE RESTARTED ON HOME MEDICATION OF GABAPENTIN. RECEIVED NEW ORDERS
--- NOTE | 2019-03-12 19:01 | NUR ---
DR VELAZCO AT BEDSIDE, HE IS PATIENTS PRIMARY PCP
--- NOTE | 2019-03-12 19:22 | NUR ---
RECEIVED REPORT FROM RIAN SLEEPER CUTTER.
--- NOTE | 2019-03-12 19:29 | NUR ---
REPORT GIVEN TO SONIA RN, PATIENT TRANSPORTED VIA HOSPITAL BED CONNECTED TO PORTABLE TELE BOX. STABLE AT TIME OF TRANSFER
--- NOTE | 2019-03-12 19:55 | NUR ---
PATIENT ARRIVED TO THE FLOOR. NO DISTRESS NOTED SATURATING AT 100% ON 2LNC. ALERT ORIENTED, PATIENT DENIES PAIN. PATIENT C/O BEING COLD BECAUSE OF ICE PACKED PLACED OVER HER PACEMAKER SITE. DRESSING TO PACEMAKER SITE IS SATURATED WITH BLOOD AROUND THE DRESSING. 2 WARM BLANKETS PROVIDED FOR COMFORT. WILL MONITOR CLOSELY
--- NOTE | 2019-03-12 21:15 | NUR ---
RT NOTE: PT ASSESSED FOR PRN BREATHING TX. TX NOT INDICATED. SP02 100% ON 2L NC, HR 102, RR 18, DIMINISHED BS NOTED. PT AWARE OF PRN BREATHING TX. NO SOB OR DISTRESS NOTED.
[2019-03-12] MEDS: ATORVASTATIN 20 MG TAB PO SCH (22:38)
[2019-03-12] MEDS: GABAPENTIN 300 MG CAP PO SCH (22:39)
[2019-03-13] VITALS (7 sets, daily range): BP systolic 99–124; BP diastolic 42–71
--- NOTE | 2019-03-13 00:15 | NUR ---
A FIB WITH RVR PATIENT IS HAVING HEART RATE OF 150s AND 160s. HOUSE SUP IS AT THE STATION AND AT BEDSIDE HELPING IN ASSESSING THE PATIENT AND OBTAINING DIGOXIN ORDER FROM THE HOSPITALIST.
[2019-03-13] MEDS ORDERED: DIGOXIN (250MCG/ML) 2 ML AMPULE IV ONE (00:45)
--- NOTE | 2019-03-13 00:48 | NUR ---
DIGOXIN IV PUSH GIVEN. WILL MONITOR
--- NOTE | 2019-03-13 02:00 | NUR ---
PATIENT IS RESTING IN BED WITH EYES CLOSED, NO DISTRESS NOTED AND PATIENT DENIES PAIN. PATIENT'S HEART RATE IS DOWN TO 90s and low 100s. Blood pressure 104/56, 98.1 temp, 96% on 2LNC.
[2019-03-13] MEDS: GABAPENTIN 300 MG CAP PO SCH ×3 (05:33→21:50)
[2019-03-13 06:18] LABS: Hematocrit 25.4 % (36.0-46.0); Hemoglobin 8.4 g/dL (12.2-16.2)
[2019-03-13] MEDS: SODIUM CHLOR 0.9% PF (SALINE LOCK) 10ML VIAL/SYR IV SCH ×3 (06:33→21:49)
[2019-03-13] MEDS: LEVOTHYROXINE SODIUM 25 MCG TAB PO SCH (06:34)
--- NOTE | 2019-03-13 06:48 | NUR ---
LAB CALLED AND REPORTED A TROPONIN OF 7.310 DOWN FROM 16.700 ON 03/11/19.
--- NOTE | 2019-03-13 06:59 | NUR ---
ROUNDS PATIENT'S PULSE IS 83 bpm AT THIS TIME. NO DISTRESS NOTED, PATIENT IS RESTING IN BED WITH EYES CLOSED, NO DISTRESS NOTED.
[2019-03-13] MEDS: cefTRIAXone 1GM/50ML D5W 50 ML IV SCH (08:34)
[2019-03-13] MEDS: PANTOPRAZOLE 40 MG TAB PO SCH (08:34)
[2019-03-13] MEDS: ENOXAPARIN SOD 80 MG/0.8ML SYRINGE SC SCH (08:34)
[2019-03-13] MEDS: AMIODARONE HCL 200 MG TAB PO SCH (08:35)
[2019-03-13] MEDS: TICAGRELOR 90 MG TAB PO SCH ×2 (08:35→21:49)
[2019-03-13] MEDS: ASPirin 81 mg TAB PO SCH (08:35)
[2019-03-13] MEDS: DIGOXIN 0.125 MG TAB PO SCH (08:35)
[2019-03-13] MEDS: Ensure Enlive Strawberry 8oz Bottle PO SCH ×3 (08:36→17:05)
[2019-03-13] MEDS: SACUBITRIL-VALSARTAN 24mg/26mg TAB PO SCH (10:00)
--- NOTE | 2019-03-13 10:25 | NUR ---
Respiratory note: PT ASSESSED FOR PRN MED NEB TX, NO TX DESIRED NOR INDICATED. HR 89 RR 16 SPO2 98% ON 2L N/C. PT AWAKE/ALERT DENIES SOB, NO DISTRESS NOTED. PT AND RN AWARE TO HAVE RT PAGED IF NEEDED.
--- NOTE | 2019-03-13 11:19 | NUR ---
D/C Planning Per consult for SNF Placement. Information and Choice letter was given to Pt. Pt requested [facility]. Pt verbalize and agrees d/c plan. Contacted [facility] ph: ) Fax: ( [phone]) faxed medical records. Per Aquilino from [facility] Pt has been accepted to room 101 bed [address] Stokes. Advised Aquilino from [facility] that Pt will be d/c tomorrow 03/14/19. Will set up transportation upon d/c. Addendum: 03/13/19 at 1125 by JACK BARRIENTOS Amended: Links added.
[2019-03-13] MEDS ORDERED: BISACODYL 5 MG EC TAB PO ONE (11:45)
--- NOTE | 2019-03-13 14:18 | NUR ---
sling delivered to the patient , at the moment her arm is elevated on a pillow, was educated when getting out of bed sling will be applied to left arm. dressing to lwt upper chest was changed, ni s/s of hematoma.
[2019-03-13] MEDS: IPRATROPIUM BROM 0.5 MG/2.5ML INH SOL NEB PRN (16:45)
[2019-03-13] MEDS: ALBUTEROL SULF 2.5 MG/0.5ML(0.5%) NEB SOLN NEB PRN (16:45)
--- NOTE | 2019-03-13 17:00 | NUR ---
assessment Patient is a 79 year old female who is alert and oriented. Prior to admission patient lived home alone and functioned with assistance from her caregiver who comes in daily for 5 hours. Patient informed me her PCP is Dr Renay Watson. Patient informed me she has a fww, cane, and 02 for home use. Patient will need rehab prior to returning home. Patient agrees to rehab. Patient has requested [facility]. I informed patient she has a right to speak to a social worker assistant regarding all care. I informed patient she has a right to participate in any and all discharge planning. Patient is aware of visiting hours on the hospital floor. I informed patient she has a right to privacy. Patient has a POA and advanced directive. Patient verbalized understanding and agreed to discharge plan. Addendum: 03/14/19 at 1704 by Merissa YEE Amended: Links added.
--- NOTE | 2019-03-13 18:35 | NUR ---
RT NOTE: PT ASSESSED FOR PRN BREATHING TX. TX NOT INDICATED. SP02 98% ON 2L NC, HR 90, RR 20, CLEAR/DIMINISHED BS NOTED. PT AWARE OF PRN BREATHING TX. NO SOB OR DISTRESS NOTED @ THIS TIME.
--- NOTE | 2019-03-13 19:30 | NUR ---
Opening Shift Note Received report from miroslava Feliz RN. Assumed care of patient, awake and alert. No S/S of distress/SOB or pain. Instructed on POC and to call for assist PRN, will continue to monitor for changes Q1hr and PRN. Bed placed in lowest position, bed alarm turned on and call light within reach.
[2019-03-13] MEDS: ATORVASTATIN 20 MG TAB PO SCH (21:50)
[2019-03-13] MEDS: APIXABAN 5 MG TAB PO SCH (21:50)
--- NOTE | 2019-03-14 02:00 | NUR ---
ROUNDS PATIENT IS RESTING IN BED WITH EYES CLOSED. NO DISTRESS NOTED AND PATIENT DENIES PAIN.
[2019-03-14 04:43] VITALS: BP 120/61
[2019-03-14] MEDS: ALBUTEROL SULF 2.5 MG/0.5ML(0.5%) NEB SOLN NEB PRN (05:25)
[2019-03-14] MEDS: IPRATROPIUM BROM 0.5 MG/2.5ML INH SOL NEB PRN (05:25)
[2019-03-14] MEDS: LEVOTHYROXINE SODIUM 25 MCG TAB PO SCH (06:35)
[2019-03-14] MEDS: SODIUM CHLOR 0.9% PF (SALINE LOCK) 10ML VIAL/SYR IV SCH (06:35)
[2019-03-14] MEDS: GABAPENTIN 300 MG CAP PO SCH (06:35)
[2019-03-14 06:37] LABS: Basophils # (auto) 0 uL; Basophils % (auto) 0.8 % (0.0-2.0); Eosinophils # (auto) 0.2 uL; Eosinophils % (auto) 3.1 % (0.0-7.0); Hematocrit 24.5 % (36.0-46.0); Hemoglobin 8.4 g/dL (12.2-16.2); Lymphocytes % (auto) 18.3 % (10.0-50.0); Mean Corpuscular Hemoglobin 30.8 pg (28.0-32.0); Mean Corpuscular Hgb Conc. 34.2 g/dL (32.0-36.0); Mean Corpuscular Volume 89.9 fL (80.0-100.0); Monocytes # (auto) 0.6 uL; Monocytes % (auto) 11.5 % (0.0-12.0); Neutrophils # (auto) 3.7 uL; Neutrophils % (auto) 66.3 % (37.0-80.0); Nucleated Red Blood Cells % 0.1 %; Platelet Count (auto) 233 10^3/uL (140-450); Red Blood Cells 2.72 10^6/uL (4.0-5.20); Red Cell Distribution Width 14.4 % (11.8-14.3); White Blood Cell 5.6 10^3/uL (4.4-10.8)
[2019-03-14 06:51] LABS: BUN/Creatinine Ratio 26.8; Calcium 8.7 mg/dL (8.5-10.1); Magnesium 2.5 mg/dL (1.6-2.6)
[2019-03-14] MEDS: Ensure Enlive Strawberry 8oz Bottle PO SCH (08:00)
[2019-03-14 09:00] VITALS: BP 118/61
[2019-03-14] MEDS: cefTRIAXone 1GM/50ML D5W 50 ML IV SCH (09:27)
[2019-03-14] MEDS: ASPirin 81 mg TAB PO SCH (09:32)
[2019-03-14] MEDS: SACUBITRIL-VALSARTAN 24mg/26mg TAB PO SCH (09:32)
[2019-03-14] MEDS: APIXABAN 5 MG TAB PO SCH (09:32)
[2019-03-14] MEDS: TICAGRELOR 90 MG TAB PO SCH (09:32)
[2019-03-14] MEDS: DIGOXIN 0.125 MG TAB PO SCH (09:32)
[2019-03-14] MEDS: AMIODARONE HCL 200 MG TAB PO SCH (09:32)
[2019-03-14] MEDS: PANTOPRAZOLE 40 MG TAB PO SCH (09:32)
--- NOTE | 2019-03-14 09:45 | NUR ---
Dr. Dave in to see patient as hospitalist. Dr. Dave states she will check with Dr. Junior to see if patient can be discharged to SNF.
[2019-03-14] MEDS ORDERED: TICA90TA PO (11:16)
[2019-03-14] MEDS ORDERED: PANT40T PO (11:16)
[2019-03-14] MEDS ORDERED: ATOR20TA50 PO (11:16)
[2019-03-14] MEDS ORDERED: DIGO0.1238 PO (11:16)
[2019-03-14] MEDS ORDERED: APIX5TAB PO (11:16)
[2019-03-14] MEDS ORDERED: AMIO200T4 PO (11:16)
--- NOTE | 2019-03-14 12:54 | NUR ---
D/C planning Advised Aquilino from [facility] Pt will be d/c today 03/14/19. Contacted General transport ph:) spoke to [facility]. Per [facility] transportation time will be between the hours 15:00-16:00 via [employer].
[2019-03-14 13:00] VITALS: BP 98/45
[2019-03-14 13:25] VITALS: BP 118/61
--- NOTE | 2019-03-14 14:45 | NUR ---
Report called to ANTOLIN Ortiz at [facility] - [phone]. Patient states she informed her family where she is going.
--- NOTE | 2019-03-14 15:15 | NUR ---
Discharge instructions given as ordered. Encourage to follow up with PMD as instructed. All questions and concerns addressed. Patient verbalized understanding. Medication reconciliation form completed and copy given to patient. IV removed with catheter intact, pressure dressing applied. Telemetry unit returned to ICU. Patient taken to medical van via gurney with all personal belongings. No distress noted at time of departure.
== END 2019-03-14 15:20 | DRG 242 ==
LOC: ER 08:35 → CATH 1 09:20 → ICU CENTRL 09:21 → DOU IN ICU 13:12 → ICU WEST 03-10 18:57 → TELE-EAST 03-12 19:46
PROVIDERS: ADMIT Internal Medicine; ATTEND Internal Medicine
PROC: 027135Z Dilation of Coronary Artery, Two Arteries with Two Drug-eluting Intraluminal Devices, Percutaneous Approach (ICD-10-PCS; principal; 2019-03-09)
PROC: 4A023N8 Measurement of Cardiac Sampling and Pressure, Bilateral, Percutaneous Approach (ICD-10-PCS; 2019-03-09)
PROC: B2151ZZ Fluoroscopy of Left Heart using Low Osmolar Contrast (ICD-10-PCS; 2019-03-09)
PROC: B241ZZ3 Ultrasonography of Multiple Coronary Arteries, Intravascular (ICD-10-PCS; 2019-03-09)
PROC: B2111ZZ Fluoroscopy of Multiple Coronary Arteries using Low Osmolar Contrast (ICD-10-PCS; 2019-03-09)
PROC: 0JH606Z Insertion of Pacemaker, Dual Chamber into Chest Subcutaneous Tissue and Fascia, Open Approach (ICD-10-PCS; 2019-03-12)
PROC: 02HK3JZ Insertion of Pacemaker Lead into Right Ventricle, Percutaneous Approach (ICD-10-PCS; 2019-03-12)
PROC: 02H63JZ Insertion of Pacemaker Lead into Right Atrium, Percutaneous Approach (ICD-10-PCS; 2019-03-12)
DX: I21.3 ST elevation (STEMI) myocardial infarction of unspecified site (principal); A41.9 Sepsis, unspecified organism; J96.20 Acute and chronic respiratory failure, unspecified whether with hypoxia or hypercapnia; I50.43 Acute on chronic combined systolic (congestive) and diastolic (congestive) heart failure; N39.0 Urinary tract infection, site not specified; T82.855A Stenosis of coronary artery stent, initial encounter; N17.9 Acute kidney failure, unspecified; I25.10 Atherosclerotic heart disease of native coronary artery without angina pectoris; E78.5 Hyperlipidemia, unspecified; I25.5 Ischemic cardiomyopathy; Y83.8 Other surgical procedures as the cause of abnormal reaction of the patient, or of later complication, without mention of misadventure at the time of the procedure; E03.9 Hypothyroidism, unspecified; J44.9 Chronic obstructive pulmonary disease, unspecified; E11.9 Type 2 diabetes mellitus without complications; I11.0 Hypertensive heart disease with heart failure; I48.0 Paroxysmal atrial fibrillation; I49.5 Sick sinus syndrome; Z95.5 Presence of coronary angioplasty implant and graft; Z79.02 Long term (current) use of antithrombotics/antiplatelets; Z82.49 Family history of ischemic heart disease and other diseases of the circulatory system; Z95.0 Presence of cardiac pacemaker; Y92.89 Other specified places as the place of occurrence of the external cause; I95.81 Postprocedural hypotension
CPT/HCPCS: 33208; 36415; 71045; 80048; 80053; 80162; 81001; 82565; 82962; 83036; 83735; 83880; 84443; 84484; 85014; 85018; 85025; 85610; 85730; 86850; 86900; 86901; 87040; 87081; 87086; 92928; 92978; 92979; 93005; 93306; 93458; 94003; 94640; 96361; 96365; 96367; 96375; 97163; 99152; 99153; 99291; C1785; C1874; G0378; J0461; J0690; J0696; J2250; J2405; J2543; J7060; Q9956; Q9967

== ENCOUNTER 2019-04-27 01:23 | Emergency (ER) | payer MEDICARE ==
[~2019-04-27] VITALS: Ht 152.4 cm; Wt 45.4 kg
[~2019-04-27 01:23] MED LIST changes: +AMIO200T4 PO; +APIX5TAB PO; +DIGO0.1238 PO; +PANT40T PO; +SACC1CAP3 PO; -SACC250C PO; +TICA90TA PO
[2019-04-27 02:19] LABS: Basophils # (auto) 0.1 uL; Basophils % (auto) 2.6 % (0.0-2.0); Eosinophils # (auto) 0.2 uL; Hematocrit 32.2 % (36.0-46.0); Hemoglobin 10.8 g/dL (12.2-16.2); Lymphocytes # (auto) 1.5 uL; Lymphocytes % (auto) 25.8 % (10.0-50.0); Mean Corpuscular Hemoglobin 29.5 pg (28.0-32.0); Mean Corpuscular Hgb Conc. 33.5 g/dL (32.0-36.0); Monocytes # (auto) 0.7 uL; Monocytes % (auto) 11.7 % (0.0-12.0); Neutrophils # (auto) 3.2 uL; Neutrophils % (auto) 55.9 % (37.0-80.0); Nucleated Red Blood Cells % 0.1 %; Platelet Count (auto) 270 10^3/uL (140-450); Red Blood Cells 3.66 10^6/uL (4.0-5.20); Red Cell Distribution Width 15.8 % (11.8-14.3); White Blood Cell 5.7 10^3/uL (4.4-10.8)
[2019-04-27 02:50] LABS: Albumin 3.4 g/dL (3.4-5.0); BUN/Creatinine Ratio 17.3; Calcium 8.6 mg/dL (8.5-10.1); Magnesium 2.1 mg/dL (1.6-2.6); Potassium 3.3 mmol/L (3.5-5.1)
[2019-04-27 02:55] LABS: Bilirubin, Total 0.4 mg/dL (0.2-1.0); Total Protein 7.1 g/dL (6.4-8.2)
[2019-04-27] MEDS ORDERED: SODIUM CHLORIDE 0.9% 1,000 ML IV ONE (03:15)
[2019-04-27] MEDS ORDERED: POTASSIUM EFFERVESENT TAB 25 MEQ PO ONE (06:45)
[2019-04-27 07:26] LABS: Urine Bacteria FEW /hpf (None Seen); Urine Blood Negative /uL (Negative); Urine Specific Gravity 1.005 (1.001-1.035); Urine WBC 6 /hpf (0 - 5)
[2019-04-27] MEDS ORDERED: ALBUTEROL SULF 2.5 MG/0.5ML(0.5%) NEB SOLN NEB ONE (07:45)
[2019-04-27 10:00] VITALS: BP 114/48
== END 2019-04-27 11:10 | disposition home or self-care (01) ==
LOC: EDUNIT# 01:23 → EDBD 01:23 → ER 01:28
DX: E87.6 Hypokalemia (principal); E11.22 Type 2 diabetes mellitus with diabetic chronic kidney disease; I13.0 Hypertensive heart and chronic kidney disease with heart failure and stage 1 through stage 4 chronic kidney disease, or unspecified chronic kidney disease; N18.9 Chronic kidney disease, unspecified; I50.9 Heart failure, unspecified; D64.9 Anemia, unspecified; J44.9 Chronic obstructive pulmonary disease, unspecified; E78.5 Hyperlipidemia, unspecified; F17.210 Nicotine dependence, cigarettes, uncomplicated; Z88.1 Allergy status to other antibiotic agents; Z88.2 Allergy status to sulfonamides; Z79.899 Other long term (current) drug therapy; Z95.0 Presence of cardiac pacemaker; Z85.3 Personal history of malignant neoplasm of breast
CPT/HCPCS: 36415; 71046; 80053; 80162; 81001; 83735; 83880; 84443; 84484; 85025; 93005; 94640; 99284; J7030; J7611

== ENCOUNTER → 2019-04-30 | Outpatient (CLI) | payer MEDICARE ==
[2019-04-30 12:31] LABS: Potassium 3.9 mmol/L (3.5-5.1)
[2019-04-30 12:43] LABS: Albumin 3.3 g/dL (3.4-5.0); BUN/Creatinine Ratio 14.9; Bilirubin, Total 0.3 mg/dL (0.2-1.0); Calcium 8.8 mg/dL (8.5-10.1); Total Protein 7.2 g/dL (6.4-8.2)
== END | disposition home or self-care (01) ==
LOC: LAB 10:39
PROVIDERS: ATTEND Internal Medicine
DX: I48.91 Unspecified atrial fibrillation (principal); I11.0 Hypertensive heart disease with heart failure; I50.9 Heart failure, unspecified; Z79.899 Other long term (current) drug therapy
CPT/HCPCS: 36415; 80053; 80162

== ENCOUNTER → 2019-05-03 | Outpatient (CLI) | payer MEDICARE | END | disposition home or self-care (01) | LOC: Rad HDHVI 12:51 | PROVIDERS: ATTEND Internal Medicine | DX: I07.1 Rheumatic tricuspid insufficiency (principal); I42.9 Cardiomyopathy, unspecified | CPT/HCPCS: 93306 ==

== ENCOUNTER 2019-05-12 12:27 | Inpatient (IN) | payer MEDICARE ==
[~2019-05-12] VITALS: Ht 154.9 cm; Wt 63.6 kg
[2019-05-12 16:31] LABS: Basophils # (auto) 0.1 uL; Basophils % (auto) 1.8 % (0.0-2.0); Eosinophils # (auto) 0.1 uL; Eosinophils % (auto) 1.5 % (0.0-7.0); Hematocrit 32.3 % (36.0-46.0); Hemoglobin 10.8 g/dL (12.2-16.2); Lymphocytes # (auto) 0.9 uL; Lymphocytes % (auto) 13.7 % (10.0-50.0); Mean Corpuscular Hemoglobin 29.5 pg (28.0-32.0); Mean Corpuscular Hgb Conc. 33.5 g/dL (32.0-36.0); Mean Corpuscular Volume 88.2 fL (80.0-100.0); Monocytes # (auto) 0.5 uL; Monocytes % (auto) 8.2 % (0.0-12.0); Neutrophils # (auto) 4.8 uL; Neutrophils % (auto) 74.8 % (37.0-80.0); Platelet Count (auto) 239 10^3/uL (140-450); Red Blood Cells 3.67 10^6/uL (4.0-5.20); Red Cell Distribution Width 15.2 % (11.8-14.3); White Blood Cell 6.4 10^3/uL (4.4-10.8)
[2019-05-12 16:43] LABS: Albumin 3.4 g/dL (3.4-5.0); Calcium 8.5 mg/dL (8.5-10.1); Potassium 3.2 mmol/L (3.5-5.1)
[2019-05-12 16:49] LABS: BUN/Creatinine Ratio 12.9; Bilirubin, Total 0.4 mg/dL (0.2-1.0); Total Protein 7.5 g/dL (6.4-8.2)
[2019-05-12] MEDS ORDERED: NITROGLYCERIN 0.4 MG SL TAB SL PRN (17:00)
[2019-05-12] MEDS ORDERED: ACETAMINOPHEN 500 MG TAB PO PRN (17:00)
[2019-05-12] MEDS ORDERED: MORPHINE SULF INJ 2 MG/ML SYRINGE 1ML IV PRN (17:00)
[2019-05-12] MEDS ORDERED: ONDANSETRON HCL 4 MG/2 ML VIAL IV PRN (17:00)
--- NOTE | 2019-05-12 18:30 | NUR ---
Pt Arrived On Unit Pt arrived on unit via wheelchair. Pt is a/ox4 with no s/s of distress or SOB. Pt has no complaints at this time. Current VS 98.7 F, R16, 137/60, 99% on RA, and HR 81
[2019-05-12] MEDS ORDERED: POTASSIUM EFFERVESENT TAB 25 MEQ PO ONE (18:45)
[2019-05-12 18:49] VITALS: BP 137/60
[2019-05-12] MEDS: GABAPENTIN 300 MG CAP PO SCH (21:57)
[2019-05-12] MEDS: METOPROLOL TARTRATE 25 MG TAB PO SCH (21:58)
[2019-05-12] MEDS: ATORVASTATIN 20 MG TAB PO SCH (21:59)
[2019-05-12 22:00] VITALS: BP 116/49
--- NOTE | 2019-05-13 02:00 | NUR ---
PAGED HOSPITALIST FOR LATEST TROP I RESULT 0.087, SPOKED WITH ALMA KHAN. NO NEW ORDER RECEIVED
[2019-05-13 05:00] VITALS: BP 111/52
[2019-05-13 05:51] LABS: INR 0.99 (0.9-1.15); Partial Thromboplastin Time 22.5 sec (23.64-32.05)
[2019-05-13] MEDS: GABAPENTIN 300 MG CAP PO SCH ×3 (06:03→21:53)
[2019-05-13 06:05] LABS: Hematocrit 33.3 % (36.0-46.0); Mean Corpuscular Volume 87.9 fL (80.0-100.0); Platelet Count (auto) 236 10^3/uL (140-450); Red Blood Cells 3.79 10^6/uL (4.0-5.20); Red Cell Distribution Width 14.6 % (11.8-14.3)
[2019-05-13 06:09] LABS: Basophils % (manual) 0 (0.0-2.0); Blast Cells 0; Metamyelocytes % 0; Myelocytes % 0; Promyelocytes % 0; Reactive Lymphocytes 0
[2019-05-13 06:14] LABS: Calcium 8.4 mg/dL (8.5-10.1); Potassium 3.6 mmol/L (3.5-5.1)
--- NOTE | 2019-05-13 07:37 | NUR ---
CARE ENDORSED TO AM SHIFT RN
[2019-05-13 07:42] LABS: Band Neutrophils % (manual) 2; Eosinophils % (manual) 1 (0-7); Lymphocytes % (manual) 18 (10.0-50.0); Monocytes % (manual) 5 (0-12)
[2019-05-13 09:00] VITALS: BP 112/52
[2019-05-13] MEDS ORDERED: FUROSEMIDE 40 MG TAB PO SCH (10:00)
[2019-05-13] MEDS ORDERED: FAMOTIDINE 20 MG TAB PO SCH (10:00)
[2019-05-13] MEDS ORDERED: LISINOPRIL 10 MG TAB PO SCH (10:00)
[2019-05-13] MEDS ORDERED: KETOROLAC TROMETH 30 MG/ML 1ML VIAL IV PRN (10:15)
[2019-05-13] MEDS: SODIUM CHLORIDE 0.9% 1,000 ML IV SCH (10:20)
[2019-05-13] MEDS: ASPirin 81 mg TAB PO SCH (10:20)
[2019-05-13] MEDS: DIGOXIN 0.125 MG TAB PO SCH (10:21)
[2019-05-13] MEDS: AMIODARONE HCL 200 MG TAB PO SCH (10:21)
[2019-05-13] MEDS: METOPROLOL TARTRATE 25 MG TAB PO SCH ×2 (10:22→21:53)
[2019-05-13] MEDS: CLOPIDOGREL BISULFATE 75 MG TAB PO SCH (10:22)
[2019-05-13] MEDS ORDERED: PANTOPRAZOLE 40 MG/10 ML VIAL INJ IV ONE (10:30)
[2019-05-13] MEDS ORDERED: CELECOXIB 100 MG CAP PO ONE (10:30)
--- NOTE | 2019-05-13 10:30 | NUR ---
DR. HUGGINS IN TO EVALUATE PT.
--- NOTE | 2019-05-13 11:55 | NUR ---
URINE SPECIMEN COLLECTED ; SENT TO LAB
[2019-05-13 12:18] LABS: Urine Bacteria MANY /hpf (None Seen); Urine Blood 2+ /uL (Negative); Urine Specific Gravity 1.012 (1.001-1.035); Urine WBC 73 /hpf (0 - 5); Urine WBC Clumps PRESENT /hpf (None Seen)
[2019-05-13 14:17] VITALS: BP 107/48
[2019-05-13] MEDS ORDERED: CLOP75TA41 (16:47)
[2019-05-13] MEDS ORDERED: ROSU1TAB15 (16:47)
[2019-05-13 17:39] VITALS: BP 100/50
[2019-05-13 21:00] VITALS: BP 103/46
[2019-05-13] MEDS: ATORVASTATIN 20 MG TAB PO SCH (21:53)
[2019-05-13] MEDS: CELECOXIB 100 MG CAP PO SCH (21:53)
[2019-05-14 04:50] VITALS: BP 91/36
[2019-05-14 05:46] LABS: Potassium 3.7 mmol/L (3.5-5.1)
[2019-05-14] MEDS: SODIUM CHLORIDE 0.9% 1,000 ML IV SCH (05:49)
[2019-05-14 05:51] LABS: BUN/Creatinine Ratio 14.2; Calcium 8.1 mg/dL (8.5-10.1)
[2019-05-14] MEDS: LEVOTHYROXINE SODIUM 25 MCG TAB PO SCH (06:25)
--- NOTE | 2019-05-14 07:37 | NUR ---
CARE ENDORSED TO AM SHIFT RN
[2019-05-14 09:00] VITALS: BP 109/52
[2019-05-14] MEDS: CLOPIDOGREL BISULFATE 75 MG TAB PO SCH (09:46)
[2019-05-14] MEDS: AMIODARONE HCL 200 MG TAB PO SCH (09:46)
[2019-05-14] MEDS: METOPROLOL TARTRATE 25 MG TAB PO SCH ×2 (09:47→22:01)
[2019-05-14] MEDS: DIGOXIN 0.125 MG TAB PO SCH (09:47)
[2019-05-14] MEDS: GABAPENTIN 300 MG CAP PO SCH ×2 (09:47→22:01)
[2019-05-14] MEDS: FAMOTIDINE 20 MG TAB PO SCH (09:48)
[2019-05-14] MEDS: CELECOXIB 100 MG CAP PO SCH ×2 (09:48→22:01)
[2019-05-14] MEDS: ASPirin 81 mg TAB PO SCH (09:48)
--- NOTE | 2019-05-14 10:30 | NUR ---
Hospitalist at bedside MD Luevano at bedside, aware of patient's status including patient c/o intermittent "squeezing feeling to chest, not pain". No distress or sob noted. Per Hospitalist he will speak to Patient Safety Sitter Dr Junior. New orders for NS received. Will medicate as ordered and cont care.
[2019-05-14] MEDS ORDERED: SODIUM CHLORIDE 0.9% 1,000 ML IV SCH (10:45)
--- NOTE | 2019-05-14 10:49 | NUR ---
Spoke to Cardio MANAGER MARKETING COMMUNICATIONS Santhosh at bedside, aware of patient's status. New order received for [facility] tomorrow. Will cont care
[2019-05-14 13:00] VITALS: BP 119/51
[2019-05-14 16:36] VITALS: BP 115/43
--- NOTE | 2019-05-14 19:03 | NUR ---
Patient care endorsed endorsed care to Darlene su. Patient sitting up in bed in no acute distress or sob. Patient's daughter at bedside. No acute distress or sob noted. Fall precs in place
--- NOTE | 2019-05-14 19:25 | NUR ---
RECEIVED PATIENT FROM DAY SHIFT RN. PATIENT SITTING AT THE SIDE OF THE BED. NO S/S OF DISTRESS NOTED. ASSISTED PATIENT TO LAY IN THE BED. PATIENT TOLERATED WELL. DENIED PAIN FOR NOW. REINFORCED NPO AFTER MIDNIGHT FOR PROCEDURE TOMORROW. PATIENT VERBALIZED UNDERSTANDING. POC INSTRUCTED AND ENCOURAGED PATIENT TO CALL FOR HYDROGENATION STILL OPERATOR IF NEEDED. BED IN LOWEST POSITION WITH SIDE RAILS UP X 2. CALL WYNN WITHIN REACH. ALARM ON. CONTINUE TO MONITOR FOR CHANGES Q1H AND PRN.
[2019-05-14 22:00] VITALS: BP 102/56
[2019-05-14] MEDS: ATORVASTATIN 20 MG TAB PO SCH (22:00)
--- NOTE | 2019-05-14 22:20 | NUR ---
SCHEDULED ORAL MEDICATION GIVEN ORDERED. PATIENT SWALLOWED WELL. NO S/S OF ASPIRATION NOTED. CONTINUE TO MONITOR.
[2019-05-15] MEDS ORDERED: SODIUM CHLORIDE 0.9% 1,000 ML IV SCH (00:01)
--- NOTE | 2019-05-15 00:19 | NUR ---
FOOD AND DRINK REMOVED FROM PATIENT'S BEDSIDE. REINFORCED NPO FROM NOW ON. CONTINUE TO MONITOR.
--- NOTE | 2019-05-15 03:34 | NUR ---
PATIENT SLEEPING. NO S/S OF DISTRESS NOTED. CONTINUE CARE.
[2019-05-15 05:05] LABS: Basophils # (auto) 0.1 uL; Eosinophils # (auto) 0.3 uL; Eosinophils % (auto) 4.5 % (0.0-7.0); Hematocrit 33.6 % (36.0-46.0); Hemoglobin 10.6 g/dL (12.2-16.2); Lymphocytes # (auto) 1.3 uL; Lymphocytes % (auto) 22.1 % (10.0-50.0); Mean Corpuscular Hemoglobin 29.9 pg (28.0-32.0); Mean Corpuscular Hgb Conc. 31.6 g/dL (32.0-36.0); Mean Corpuscular Volume 94.7 fL (80.0-100.0); Monocytes # (auto) 0.6 uL; Monocytes % (auto) 11.1 % (0.0-12.0); Neutrophils # (auto) 3.5 uL; Neutrophils % (auto) 60.3 % (37.0-80.0); Platelet Count (auto) 216 10^3/uL (140-450); Red Blood Cells 3.55 10^6/uL (4.0-5.20); White Blood Cell 5.8 10^3/uL (4.4-10.8)
[2019-05-15 05:21] LABS: INR 1.01 (0.9-1.15)
[2019-05-15 05:29] LABS: Potassium 3.7 mmol/L (3.5-5.1)
[2019-05-15 05:31] LABS: BUN/Creatinine Ratio 13.1
[2019-05-15 06:00] VITALS: BP 111/47
[2019-05-15] MEDS: LEVOTHYROXINE SODIUM 25 MCG TAB PO SCH (06:15)
--- NOTE | 2019-05-15 07:30 | NUR ---
Opening Shift Note Assumed care of patient, awake and alert. No S/S of distress/SOB or pain. Instructed on POC and to call for assist PRN. Fall precautions in place per protocol. Will continue to monitor for changes Q1hr and PRN.
[2019-05-15 08:00] VITALS: BP 102/51
[2019-05-15 08:46] VITALS: BP 102/51
--- NOTE | 2019-05-15 10:15 | NUR ---
Hospitalist at bedside MD Luevano at bedside, aware of patient's status including abnormal labs. New orders received for 0.45 sodium chloride. Will medicate as ordered and cont care
[2019-05-15] MEDS: SOD CHL 0.45% 1,000 ML IV SCH (10:41)
[2019-05-15] MEDS: ASPirin 81 mg TAB PO SCH (10:58)
[2019-05-15] MEDS: CELECOXIB 100 MG CAP PO SCH ×2 (10:58→21:46)
[2019-05-15] MEDS: AMIODARONE HCL 200 MG TAB PO SCH (10:58)
[2019-05-15] MEDS: DIGOXIN 0.125 MG TAB PO SCH (11:01)
[2019-05-15] MEDS: METOPROLOL TARTRATE 25 MG TAB PO SCH ×2 (11:02→21:47)
[2019-05-15] MEDS: CLOPIDOGREL BISULFATE 75 MG TAB PO SCH (11:03)
[2019-05-15] MEDS: FAMOTIDINE 20 MG TAB PO SCH (11:03)
[2019-05-15] MEDS: GABAPENTIN 300 MG CAP PO SCH ×2 (11:03→21:47)
--- NOTE | 2019-05-15 12:15 | NUR ---
PT. TAKEN TO ACCOUNT [employer] Patient was taken to manager labor relations for procedure. Patient care endorsed to Lianna. No distress noted upon departure, will continue to monitor upon arrival back to unit.
[2019-05-15 13:00] VITALS: BP 116/53
[2019-05-15] MEDS ORDERED: LIDOCAINE 2%HCL (LOCAL ANESTH.) INJ 20ML MDV ONE (13:04)
[2019-05-15] MEDS ORDERED: IODIXANOL 320MG/ML 100ML BTL IV ONE ×3 (13:04→14:15)
[2019-05-15] MEDS ORDERED: VERAPAMIL 2.5MG/ML INJ 2ML VIAL IV ONE (13:18)
[2019-05-15] MEDS ORDERED: HEPARIN SODIUM (PORCINE) 5000 UNITS/ML 1ML VIAL ONE (13:18)
[2019-05-15] MEDS ORDERED: MIDAZOLAM HCL 1MG/1ML-2 ML VIAL ONE (13:18)
[2019-05-15] MEDS ORDERED: fentaNYL CITRATE 100 MCG/2 ML VL ONE (13:18)
[2019-05-15] MEDS ORDERED: ANGIOMAX 250 MG VIAL IV ONE (13:18)
[2019-05-15] MEDS ORDERED: SODIUM CHL 0.9% 50 ML ONE (13:19)
--- NOTE | 2019-05-15 16:00 | NUR ---
Patient back from company laborer dressing to right groin noted bloody, drainage circled and no active bleeding noted. No s/s of hematoma noted. Pulses palpable to bilat feet. Dressing assessed at bedside with Alba greenhouse laborer rn and she states drainage "has not changed" from when she noted it. Patient instructed to not get up or bed leg until after 1700 she verbalized understanding. Will cont to monitor
[2019-05-15 17:00] VITALS: BP 98/50
--- NOTE | 2019-05-15 17:24 | NUR ---
Patient assisted up to bathroom no drainage noted to dressing on right groin. No s/s of bleeding or hematoma. Patient tolerated well and assisted back to bed. Cont care
--- NOTE | 2019-05-15 18:57 | NUR ---
Patient care endorsed endorsed care to Darlene rn. Patient resting comfortably in bed. Call light within reach. No distress or sob noted.
--- NOTE | 2019-05-15 19:30 | NUR ---
RECEIVED PATIENT FROM DAY SHIFT RN. ASSISTED PATIENT BACK TO BED FROM BATHROOM. PATIENT TOLERATED WELL. NO S/S OF DISTRESS NOTED. DENIED PAIN FOR NOW. DRESSING ON RIGHT GROIN C/D/I. POC INSTRUCTED AND ENCOURAGED PATIENT TO CALL FOR HIV NURSE IF NEEDED. BED IN LOWEST POSITION WITH SIDE RAILS UP X 2. CALL WYNN WITHIN REACH. ALARM ON. CONTINUE TO MONITOR FOR CHANGES Q1H AND PRN.
[2019-05-15] MEDS: ATORVASTATIN 20 MG TAB PO SCH (21:47)
--- NOTE | 2019-05-15 21:50 | NUR ---
SCHEDULED ORAL MEDICATION GIVEN ORDERED. PATIENT SWALLOWED WELL. NO S/S OF ASPIRATION NOTED. CONTINUE TO MONITOR.
[2019-05-15 22:27] VITALS: BP 118/52
--- NOTE | 2019-05-15 22:50 | NUR ---
REASSESSED BP 104/50, HR 62. CONTINUE TO MONITOR.
--- NOTE | 2019-05-16 03:23 | NUR ---
PATIENT SLEEPING. NO S/S OF DISTRESS NOTED. CONTINUE CARE.
[2019-05-16 05:00] VITALS: BP 102/62
[2019-05-16 05:51] LABS: Hematocrit 30.7 % (36.0-46.0); Hemoglobin 10.6 g/dL (12.2-16.2); Mean Corpuscular Hemoglobin 30.1 pg (28.0-32.0); Mean Corpuscular Hgb Conc. 34.4 g/dL (32.0-36.0); Mean Corpuscular Volume 87.3 fL (80.0-100.0); Platelet Count (auto) 200 10^3/uL (140-450); Red Blood Cells 3.52 10^6/uL (4.0-5.20); White Blood Cell 7.8 10^3/uL (4.4-10.8)
[2019-05-16 05:56] LABS: Basophils % (manual) 0 (0.0-2.0); Blast Cells 0; Metamyelocytes % 0; Myelocytes % 0; Promyelocytes % 0; Reactive Lymphocytes 0
[2019-05-16 06:09] LABS: Anion Gap 8 (5-15); BUN/Creatinine Ratio 12.2; Blood Urea Nitrogen 20 mg/dL (7-18); Calcium 7.8 mg/dL (8.5-10.1); Carbon Dioxide 17 mmol/L (21-32); Chloride 118 mmol/L (98-107); GFR African American 39 mL/min; GFR Non-African American 32 mL/min; Glucose 96 mg/dL (74-106); Potassium 3.7 mmol/L (3.5-5.1); Sodium 143 mmol/L (136-145)
[2019-05-16] MEDS: LEVOTHYROXINE SODIUM 25 MCG TAB PO SCH (06:38)
[2019-05-16] MEDS: SOD CHL 0.45% 1,000 ML IV SCH ×2 (06:38→16:18)
[2019-05-16 06:49] LABS: Band Neutrophils % (manual) 1; Eosinophils % (manual) 3 (0-7); Lymphocytes % (manual) 15 (10.0-50.0); Monocytes % (manual) 12 (0-12)
[2019-05-16 08:22] VITALS: BP 102/51
[2019-05-16 09:00] VITALS: BP 99/48
[2019-05-16] MEDS: METOPROLOL TARTRATE 25 MG TAB PO SCH ×2 (09:44→21:33)
[2019-05-16] MEDS: CELECOXIB 100 MG CAP PO SCH ×2 (10:00→21:33)
[2019-05-16] MEDS: CLOPIDOGREL BISULFATE 75 MG TAB PO SCH (10:28)
[2019-05-16] MEDS: GABAPENTIN 300 MG CAP PO SCH ×2 (10:28→21:34)
[2019-05-16] MEDS: FAMOTIDINE 20 MG TAB PO SCH (10:28)
[2019-05-16] MEDS: DIGOXIN 0.125 MG TAB PO SCH (10:28)
[2019-05-16] MEDS: ASPirin 81 mg TAB PO SCH (10:29)
[2019-05-16] MEDS: AMIODARONE HCL 200 MG TAB PO SCH (10:29)
[2019-05-16] MEDS ORDERED: cefTRIAXone 1GM/50ML D5W 50 ML IV ONE (10:30)
--- NOTE | 2019-05-16 12:57 | NUR ---
NUTRITION ASSESSMENT NOTES Please refer to link notes of nutrition screen form filed under the intervention section of the plan of care for further details. Est. Needs: 1300 kcal to 1650 kcal (20-25 kcal/kgBW), 52 gms to 65 gms pro (0.8-1.0 gms/kgBW). Will continue to monitor pertinent labs and reassess nutrient need prn Thank you. Addendum: 05/16/19 at [address] Amended: Links added.
[2019-05-16 13:00] VITALS: BP 110/39
[2019-05-16 17:26] VITALS: BP 111/52
[2019-05-16] MEDS: ATORVASTATIN 20 MG TAB PO SCH (21:32)
[2019-05-16 21:41] VITALS: BP 117/68
[2019-05-17] MEDS: SOD CHL 0.45% 1,000 ML IV SCH (02:15)
[2019-05-17 05:07] VITALS: BP 100/50
[2019-05-17] MEDS: LEVOTHYROXINE SODIUM 25 MCG TAB PO SCH (06:06)
[2019-05-17 06:08] LABS: BUN/Creatinine Ratio 12.3; Potassium 3.7 mmol/L (3.5-5.1)
--- NOTE | 2019-05-17 07:02 | NUR ---
Report given to Reji Pittman, patient is resting no distress.
[2019-05-17 07:38] VITALS: BP 102/51
[2019-05-17] MEDS: cefTRIAXone 1GM/50ML D5W 50 ML IV SCH (08:51)
[2019-05-17 09:00] VITALS: BP 116/50
[2019-05-17] MEDS: CELECOXIB 100 MG CAP PO SCH ×2 (10:00→21:44)
[2019-05-17] MEDS: AMIODARONE HCL 200 MG TAB PO SCH ×2 (10:00→10:10)
[2019-05-17] MEDS: METOPROLOL TARTRATE 25 MG TAB PO SCH ×2 (10:00→21:27)
[2019-05-17] MEDS: GABAPENTIN 300 MG CAP PO SCH ×3 (10:00→21:26)
[2019-05-17] MEDS: ASPirin 81 mg TAB PO SCH (10:08)
[2019-05-17] MEDS: DIGOXIN 0.125 MG TAB PO SCH (10:09)
[2019-05-17] MEDS: FAMOTIDINE 20 MG TAB PO SCH (10:09)
[2019-05-17] MEDS: CLOPIDOGREL BISULFATE 75 MG TAB PO SCH (10:09)
[2019-05-17 13:00] VITALS: BP 126/44
[2019-05-17 17:54] VITALS: BP 117/50
--- NOTE | 2019-05-17 19:56 | NUR ---
Opening Shift Note Assumed care of patient, awake and alert. No S/S of distress/SOB or pain. Instructed on POC and to call for assist PRN, will continue to monitor for changes Q1hr and PRN.
[2019-05-17] MEDS: MORPHINE SULF INJ 2 MG/ML SYRINGE 1ML IV PRN (20:48)
[2019-05-17] MEDS: TICAGRELOR 90 MG TAB PO SCH (21:26)
[2019-05-17] MEDS: ATORVASTATIN 20 MG TAB PO SCH (21:26)
[2019-05-17 22:00] VITALS: BP 101/47
[2019-05-18 05:00] VITALS: BP 107/47
[2019-05-18] MEDS: LEVOTHYROXINE SODIUM 25 MCG TAB PO SCH (06:13)
--- NOTE | 2019-05-18 07:22 | NUR ---
Report given to Elisa Balbuena, patient is resting no distress.
--- NOTE | 2019-05-18 07:28 | NUR ---
Opening Note Received report from slot shift supervisor RN. Patient is awake, alert and oriented x4. Patient is on room air, respirations even and unlabored. Patient denies pain at this time. Patient sitting up at bedside. Reviewed plan of care with patient, patient verbalized understanding. Bed in low and locked position, call light within reach. Will continue to monitor Q1 hour and PRN.
[2019-05-18] MEDS: cefTRIAXone 1GM/50ML D5W 50 ML IV SCH (08:26)
[2019-05-18 09:00] VITALS: BP 85/40
[2019-05-18] MEDS: GABAPENTIN 300 MG CAP PO SCH ×2 (09:29→21:52)
[2019-05-18] MEDS: FAMOTIDINE 20 MG TAB PO SCH (09:29)
[2019-05-18] MEDS: ASPirin 81 mg TAB PO SCH (09:29)
[2019-05-18] MEDS: DIGOXIN 0.125 MG TAB PO SCH (09:29)
[2019-05-18] MEDS: METOPROLOL TARTRATE 25 MG TAB PO SCH ×2 (09:30→21:53)
--- NOTE | 2019-05-18 09:40 | NUR ---
Dr. Luevano at bedside Discussing plan of care with patient. Will continue to monitor Q1 hour and PRN.
[2019-05-18] MEDS: TICAGRELOR 90 MG TAB PO SCH ×2 (09:41→21:53)
[2019-05-18] MEDS: CELECOXIB 100 MG CAP PO SCH ×2 (09:41→10:00)
--- NOTE | 2019-05-18 09:45 | NUR ---
Called Microbiology Called microbiology for results of urine culture and sensitivity. Awaiting call back.
[2019-05-18] MEDS ORDERED: ERTAPENEM SOD INJ 1 GM in SODIUM CHL 0.9% 50 ML IV ONE (10:00)
--- NOTE | 2019-05-18 10:38 | NUR ---
PICC line consult Spoke with Charge nurse Noni, no on-call PICC line nurse this available this weekend. Will notify Dr. Luevano. Will continue to monitor Q1 hour and PRN.
--- NOTE | 2019-05-18 11:36 | NUR ---
Critical lab troponin Call from Stacey in the lab, patient has a critical Troponin of 0.544. Dr. Luevano is aware, states Dr. Ayers will be in to see the patient. Will continue to monitor Q1 hour and PRN.
--- NOTE | 2019-05-18 12:50 | NUR ---
Dr. Ayers at bedside Discussing plan of care with patient. New orders received for EKG. Will implement new orders. Will continue to monitor Q1 hour and PRN.
[2019-05-18 13:00] VITALS: BP 113/61
--- NOTE | 2019-05-18 13:50 | NUR ---
EKG done EKG done and placed in patient chart per MD orders.
[2019-05-18] MEDS: HYDROcodone-ACET 5/325MG TAB PO PRN (14:02)
[2019-05-18] MEDS: MORPHINE SULF INJ 2 MG/ML SYRINGE 1ML IV PRN (15:34)
[2019-05-18 17:00] VITALS: BP 113/58
--- NOTE | 2019-05-18 19:24 | NUR ---
Closing Note Report given to shift production associate RN. No signs or symptoms of distress noted at this time.
--- NOTE | 2019-05-18 19:32 | NUR ---
RECEIVED PATIENT FROM DAY SHIFT RN. PATIENT RESTING IN BED. NO S/S OF DISTRESS NOTED. C/O PAIN AT PRIVATE AREA AFTER PAIN MEDICATION GIVEN EARLIER, AND PATIENT SAID THAT THE PAIN MEDICATION DID NOT WORK FOR HER PAIN. ICE PACK APPLIED, AND DID HELP A LITTLE BIT. POC INSTRUCTED AND ENCOURAGED PATIENT TO CALL FOR INSTRUCTOR TRAFFIC SAFETY IF NEEDED. BED IN LOWEST POSITION WITH SIDE RAILS UP X 2. CALL WYNN WITHIN REACH. ALARM ON. CONTINUE TO MONITOR FOR CHANGES Q1H AND PRN.
[2019-05-18] MEDS: RANOLAZINE ER 500 MG TAB PO SCH (21:53)
[2019-05-18] MEDS: ATORVASTATIN 20 MG TAB PO SCH (21:53)
[2019-05-18 22:00] VITALS: BP 110/70
--- NOTE | 2019-05-18 22:12 | NUR ---
SCHEDULED ORAL MEDICATION GIVEN ORDERED. PATIENT SWALLOWED WELL. NO S/S OF ASPIRATION NOTED. CONTINUE TO MONITOR.
--- NOTE | 2019-05-18 23:30 | NUR ---
ASSISTED PATIENT TO BATHROOM AND BACK TO BED. PATIENT WALKED WELL WITH ASSIST. NO S/S OF DISTRESS NOTED. CONTINUE CARE.
[2019-05-19] MEDS: MORPHINE SULF INJ 2 MG/ML SYRINGE 1ML IV PRN (01:19)
--- NOTE | 2019-05-19 01:20 | NUR ---
PATIENT C/O PAIN @ 03/26, MEDICATED PATIENT ORDERED. CONTINUE TO MONITOR.
[2019-05-19] MEDS: HYDROcodone-ACET 5/325MG TAB PO PRN (02:53)
--- NOTE | 2019-05-19 02:54 | NUR ---
PATIENT STILL C/O PAIN @ 9/10 AFTER MORPHINE, NORCO GIVEN ORDERED. CONTINUE TO MONITOR.
--- NOTE | 2019-05-19 03:54 | NUR ---
PATIENT SLEEPING. NO S/S OF PAIN NOTED. CONTINUE CARE.
[2019-05-19 05:00] VITALS: BP 122/59
[2019-05-19] MEDS: LEVOTHYROXINE SODIUM 25 MCG TAB PO SCH (06:12)
--- NOTE | 2019-05-19 06:13 | NUR ---
PATIENT STILL C/O PAIN THE SAME. NO MEDICATIONS WORKING FOR HER. WILL PASS IT TO DAY SHIFT RN TO DAY SHIFT MD FOR FURTHER TREATMENT. CONTINUE TO MONITOR.
--- NOTE | 2019-05-19 07:30 | NUR ---
Opening Note Received report from police shift commander RN. Patient is awake, alert and oriented x4. Patient is on room air, respirations even and unlabored. Patient requesting an ice pack, states she is "having pain from her UTI." Will provide ice pack. Reviewed plan of care with patient, patient verbalized understanding. Bed in low and locked position, call light within reach. Will continue to monitor Q1 hour and PRN.
[2019-05-19 09:00] VITALS: BP 120/57
[2019-05-19] MEDS: GABAPENTIN 300 MG CAP PO SCH ×2 (10:16→21:42)
[2019-05-19] MEDS: ERTAPENEM SOD INJ 1 GM in SODIUM CHL 0.9% 50 ML IV SCH (10:16)
[2019-05-19] MEDS: CELECOXIB 100 MG CAP PO SCH (10:17)
[2019-05-19] MEDS: RANOLAZINE ER 500 MG TAB PO SCH ×2 (10:17→21:42)
[2019-05-19] MEDS: DIGOXIN 0.125 MG TAB PO SCH (10:17)
[2019-05-19] MEDS: METOPROLOL TARTRATE 25 MG TAB PO SCH ×2 (10:17→21:43)
[2019-05-19] MEDS: ASPirin 81 mg TAB PO SCH (10:17)
[2019-05-19] MEDS: TICAGRELOR 90 MG TAB PO SCH ×2 (10:18→21:42)
[2019-05-19] MEDS: FAMOTIDINE 20 MG TAB PO SCH (10:18)
--- NOTE | 2019-05-19 10:50 | NUR ---
Dr. Preciado at bedside Discussing plan of care with patient. Will continue to monitor Q1 hour and PRN.
--- NOTE | 2019-05-19 12:16 | NUR ---
Nutrition Follow-up Notes: Wt.: 86.7 kg Pt with MD at bedside. per records pt s/p stenting and angioplasty. pt with no distress noted. pt is currently on cardiac diet with adequate PO of 75% x 4 per RN doc Est. Needs: 1300 kcal to 1650 kcal (20-25 kcal/kgBW), 52 gms to 65 gms pro (0.8-1.0 gms/kgBW). Will continue to monitor pertinent labs and reassess nutrient need prn Labs: CREAT 1.46 H, CA 8.0 L. Skin: Fabian scale 18, mod risk, skin intact per dialysis registered nurse. GI: Pt has no BM reported per dialysis registered nurse. PES: Altered nutrition related lab values r/t current/chronic medical condition aeb hypocapnia, elev. renal labs, Trop I, hypocalcemia Will continue to monitor PO intake, skin status, pertinent labs and weight trend. F/u in 3-5 days. Rec.: 1) Consider close supervision and feeding assistance prn during meals. 2.) Refer to CDE/RD for further nutrition educ. and weight monitoring upon discharge. 3.) Continue current plan of care.
--- NOTE | 2019-05-19 12:37 | NUR ---
Spoke with Rell Made Rell aware regarding patients social service consult for home health and IV antibiotics.
[2019-05-19 13:00] VITALS: BP 116/49
[2019-05-19 16:57] VITALS: BP 110/53
[2019-05-19] MEDS ORDERED: PHENAZOPYRIDINE HCL 100 MG TAB PO SCH (18:00)
--- NOTE | 2019-05-19 19:03 | NUR ---
losing Note Report given to cage shift manager RN. No signs or symptoms of distress noted at this time.
--- NOTE | 2019-05-19 19:44 | NUR ---
RECEIVED PATIENT FROM DAY SHIFT RN. PATIENT RESTING IN BED. NO S/S OF DISTRESS NOTED. C/O HEADACHE @ 11/23, MEDICATED PATIENT ORDERED. PAIN AT URINARY MEATUS BETTER WITH ICE PACK APPLIED. POC INSTRUCTED AND ENCOURAGED PATIENT TO CALL FOR INCINERATOR OPERATOR IF NEEDED. BED IN LOWEST POSITION WITH SIDE RAILS UP X 2. CALL WYNN WITHIN REACH. ALARM ON. CONTINUE TO MONITOR FOR CHANGES Q1H AND PRN.
[2019-05-19] MEDS: ATORVASTATIN 20 MG TAB PO SCH (21:43)
[2019-05-19 22:00] VITALS: BP 106/57
--- NOTE | 2019-05-19 22:08 | NUR ---
ICE PACK CHANGED. PATIENT DENIED PAIN FOR NOW, BUT STILL WANTS TO HAVE ICE PACK TO HELP FOR THE PAIN. SCHEDULED ORAL MEDICATION GIVEN ORDERED. PATIENT SWALLOWED WELL. NO S/S OF ASPIRATION NOTED. CONTINUE TO MONITOR.
[2019-05-20] VITALS (7 sets, daily range): BP systolic 98–130; BP diastolic 41–90
--- NOTE | 2019-05-20 02:42 | NUR ---
PATIENT SLEEPING. NO S/S OF DISTRESS AND PAIN NOTED. CONTINUE CARE.
[2019-05-20 05:51] LABS: INR 1.01 (0.9-1.15)
[2019-05-20] MEDS: LEVOTHYROXINE SODIUM 25 MCG TAB PO SCH (06:19)
[2019-05-20] MEDS: METOPROLOL TARTRATE 25 MG TAB PO SCH (09:42)
[2019-05-20] MEDS: TICAGRELOR 90 MG TAB PO SCH (09:49)
[2019-05-20] MEDS: RANOLAZINE ER 500 MG TAB PO SCH (09:49)
[2019-05-20] MEDS: GABAPENTIN 300 MG CAP PO SCH (09:49)
[2019-05-20] MEDS: DIGOXIN 0.125 MG TAB PO SCH (09:50)
[2019-05-20] MEDS: FAMOTIDINE 20 MG TAB PO SCH (09:50)
[2019-05-20] MEDS: CELECOXIB 100 MG CAP PO SCH (09:50)
[2019-05-20] MEDS: ASPirin 81 mg TAB PO SCH (09:50)
[2019-05-20] MEDS: ERTAPENEM SOD INJ 1 GM in SODIUM CHL 0.9% 50 ML IV SCH (09:57)
--- NOTE | 2019-05-20 09:57 | NUR ---
I faxed home IV ATB order to [facility].
--- NOTE | 2019-05-20 15:39 | NUR ---
Assessment Pt is an 79 yr old alert and oriented female. Prior to admit, pt lived alone and had a privately paid caregiver through [employer]. Pt's daughter, Peggy, is her emergency contact at [phone]. Pt able to ambulate w/ walker. Pt is independent with ADLs with the use of a shower chair and in home 02. Pt's caregiver provider cooks and cleans for her. Pt stated that she was admitted to the hospital with a sharp pain in her chest that would not go away. Pt stated that they put a stint in. Pt receives income and states that she has other funds that help take care of things. Pt has and advanced directive and stated that her daughter Peggy is her POA. Pt plans to d/c to the [facility] for IV-antibiotics and rehab. No other needs or concerns at this time. Addendum: 05/20/19 at 1545 by JONN MORGAN Amended: Links added.
--- NOTE | 2019-05-20 15:47 | NUR ---
D/C Planning Per consult for SNF Placement for IV antibiotics Invanz 1 gm daily for 10 days. Information and Choice letter was given to Pt. Pt requested [facility]. Pt verbalize and agrees d/c plan. Contacted [facility] ph: ) Fax: ) faxed medical records. Per Aquilino from [facility] Pt has been accepted to room 306 bed [address] Stokes. Contact General transport Ph:( [phone]) spoke to [facility]. Per [facility] transportation will be between 17:00-16:00 via [employer]. Informed Pt at bedside. Informed ANTOLIN Holden. Addendum: 05/20/19 at 1602 by JACK BARRIENTOS Amended: Links added.
[2019-05-20] MEDS ORDERED: LIDOCAINE 1% (LOCAL ANESTH.) PF 5ml SDV ID ONE (16:30)
--- NOTE | 2019-05-20 16:34 | NUR ---
PICC line placement Patient/Patient significant other educated on need for PICC line placement. All risks and benefits explained and all questions and concerns addressed prior to procedure. Noted past medical history and allergies with no contraindications. INR and Plt counts within acceptable range. 4 fr PICC line inserted via right basilic vein using [employer] US and Tip Location System. Sterile technique with maximum barrier precautions utilized. Blood return obtained from lumen and flushed easily with NS using proper technique. PICC secured with Stat-lock; biodisc and occlusive dressing applied. Stat portable chest x-ray obtained for PICC tip placement. *Baseline Arm Circumference 28 cm. Internal length 37 cm. External length 0 cm. PICC lot #[id number]
--- NOTE | 2019-05-20 18:05 | NUR ---
Okay to use PICC line Xray completed. Reviewed by ALMA Pineda and agrees that PICC line resides in [facility]. Okay to use PICC line.
--- NOTE | 2019-05-20 19:25 | NUR ---
Opening Shift Note Received report from Navin DANGELO. Assumed care of patient, awake and alert. No S/S of distress/SOB or pain. Instructed on POC and to call for assist PRN, will continue to monitor for changes Q1hr and PRN. Patient is for transfer to [facility], awaiting for transport.
--- NOTE | 2019-05-20 20:02 | NUR ---
Discharge instructions given as ordered. All questions and concerns addressed. Patient verbalized understanding. PICC line remained in place. Medication reconciliation form completed and copy given to patient. Telemetry unit returned to ICU by day shift RN. Report already given by dayshift RN to [facility]. Patient transported by [facility] transport with all personal belongings. No distress noted at time of departure.
[2019-05-20] MEDS ORDERED: SODIUM CHLOR 0.9% PF (SALINE LOCK) 10ML VIAL/SYR IV SCH (22:00)
== END 2019-05-20 20:02 | DRG 246 ==
LOC: EDBD 12:27 → ER 12:27 → TELE 12:28 → TELE-CENTR 18:39
PROVIDERS: ADMIT Nurse Practitioner Acute Care; ATTEND Internal Medicine
PROC: 027034Z Dilation of Coronary Artery, One Artery with Drug-eluting Intraluminal Device, Percutaneous Approach (ICD-10-PCS; principal; 2019-05-15)
PROC: 4A023N7 Measurement of Cardiac Sampling and Pressure, Left Heart, Percutaneous Approach (ICD-10-PCS; 2019-05-15)
PROC: B2151ZZ Fluoroscopy of Left Heart using Low Osmolar Contrast (ICD-10-PCS; 2019-05-15)
PROC: B2111ZZ Fluoroscopy of Multiple Coronary Arteries using Low Osmolar Contrast (ICD-10-PCS; 2019-05-15)
PROC: 05HY33Z Insertion of Infusion Device into Upper Vein, Percutaneous Approach (ICD-10-PCS; 2019-05-20)
DX: T82.855A Stenosis of coronary artery stent, initial encounter (principal); I21.4 Non-ST elevation (NSTEMI) myocardial infarction; N17.0 Acute kidney failure with tubular necrosis; I13.0 Hypertensive heart and chronic kidney disease with heart failure and stage 1 through stage 4 chronic kidney disease, or unspecified chronic kidney disease; E44.0 Moderate protein-calorie malnutrition; J96.10 Chronic respiratory failure, unspecified whether with hypoxia or hypercapnia; N39.0 Urinary tract infection, site not specified; Z16.12 Extended spectrum beta lactamase (ESBL) resistance; E87.5 Hyperkalemia; I25.5 Ischemic cardiomyopathy; D64.9 Anemia, unspecified; B96.20 Unspecified Escherichia coli [E. coli] as the cause of diseases classified elsewhere; E03.9 Hypothyroidism, unspecified; E78.5 Hyperlipidemia, unspecified; E87.6 Hypokalemia; I25.10 Atherosclerotic heart disease of native coronary artery without angina pectoris; J44.9 Chronic obstructive pulmonary disease, unspecified; Y83.8 Other surgical procedures as the cause of abnormal reaction of the patient, or of later complication, without mention of misadventure at the time of the procedure; Z88.2 Allergy status to sulfonamides; Z88.1 Allergy status to other antibiotic agents; Z79.899 Other long term (current) drug therapy; Z98.61 Coronary angioplasty status; Z90.11 Acquired absence of right breast and nipple; Y92.89 Other specified places as the place of occurrence of the external cause; Z68.26 Body mass index [BMI] 26.0-26.9, adult
CPT/HCPCS: 36415; 36569; 71045; 80048; 80053; 80162; 81001; 83735; 83880; 84484; 85007; 85025; 85027; 85610; 85730; 86141; 86850; 86900; 86901; 87081; 87086; 87186; 92928; 93005; 93458; 94761; 99152; 99153; 99291; C9113; G0378; J0696; J1335; J2250; J2405; Q9967

== ENCOUNTER 2019-05-29 11:48 | Inpatient (IN) | payer MEDICARE ==
[~2019-05-29] VITALS: Ht 165.1 cm; Wt 64.8 kg
[~2019-05-29 11:48] MED LIST changes: -AMIO200T4 PO; -APIX5TAB PO; -ATOR20TA50 PO; -MULTTAB99 PO; +ROSU1TAB15; -SACC1CAP3 PO; -TURMPOW2 PO
[2019-05-29] MEDS ORDERED: SODIUM CHLORIDE 0.9% 500 ML IVB ONE (12:38)
[2019-05-29 13:58] LABS: Urine Bacteria FEW /hpf (None Seen); Urine Blood Negative /uL (Negative); Urine Specific Gravity 1.013 (1.001-1.035); Urine WBC 142 /hpf (0 - 5)
[2019-05-29 14:06] LABS: Basophils # (auto) 0.1 uL; Basophils % (auto) 1.5 % (0.0-2.0); Eosinophils # (auto) 0.3 uL; Eosinophils % (auto) 5.5 % (0.0-7.0); Hematocrit 28.1 % (36.0-46.0); Hemoglobin 9.1 g/dL (12.2-16.2); Lymphocytes # (auto) 0.8 uL; Lymphocytes % (auto) 12.9 % (10.0-50.0); Mean Corpuscular Hemoglobin 29.1 pg (28.0-32.0); Mean Corpuscular Hgb Conc. 32.4 g/dL (32.0-36.0); Mean Corpuscular Volume 89.8 fL (80.0-100.0); Monocytes # (auto) 0.6 uL; Monocytes % (auto) 9.8 % (0.0-12.0); Neutrophils # (auto) 4.1 uL; Neutrophils % (auto) 70.3 % (37.0-80.0); Platelet Count (auto) 199 10^3/uL (140-450); Red Blood Cells 3.13 10^6/uL (4.0-5.20); Red Cell Distribution Width 15.9 % (11.8-14.3); White Blood Cell 5.8 10^3/uL (4.4-10.8)
[2019-05-29 14:43] LABS: Albumin 2.8 g/dL (3.4-5.0); BUN/Creatinine Ratio 13.2; Calcium 8.4 mg/dL (8.5-10.1); Magnesium 2.2 mg/dL (1.6-2.6); Potassium 3.9 mmol/L (3.5-5.1)
[2019-05-29] MEDS ORDERED: NITROGLYCERIN 0.4 MG SL TAB SL PRN (14:45)
[2019-05-29] MEDS ORDERED: ONDANSETRON HCL 4 MG/2 ML VIAL IV PRN (14:45)
[2019-05-29] MEDS ORDERED: HYDROcodone-ACET 5/325MG TAB PO PRN (14:45)
[2019-05-29] MEDS ORDERED: ACETAMINOPHEN 500 MG TAB PO PRN (14:45)
[2019-05-29] MEDS ORDERED: MORPHINE SULF INJ 2 MG/ML SYRINGE 1ML IV PRN ×2 (14:45)
[2019-05-29 14:50] LABS: Bilirubin, Total 0.5 mg/dL (0.2-1.0); Total Protein 6.2 g/dL (6.4-8.2)
[2019-05-29] MEDS: SODIUM CHLORIDE 0.9% 1,000 ML IV SCH (15:01)
[2019-05-29] MEDS: cefTRIAXone 1GM/50ML D5W 50 ML IV SCH (15:02)
[2019-05-29 17:11] VITALS: BP 137/54
--- NOTE | 2019-05-29 18:48 | NUR ---
RT NOTE PT WAS SEEN BY RT FOR HHN TX IN THE ER. PT TOLERATES WELL VIA MASK. NO ADVERSE REACTION NOTED. CONT ORDERED Addendum: 05/29/19 at 1954 by Zandra Brunson RT Amended: Links added.
[2019-05-29] MEDS: ALBUTEROL SULF 2.5 MG/0.5ML(0.5%) NEB SOLN NEB SCH (18:51)
[2019-05-29 21:35] VITALS: BP 140/55
[2019-05-29 21:45] VITALS: BP 140/55
--- NOTE | 2019-05-29 21:45 | NUR ---
[facility] after SB[facility] received. Patient oriented to [facility]RAUN RN primary RN, unit, room, bed, and unit policies regarding patient care and visiting hours. Patient now on continuous telemetry monitoring, tele box # 2 and telemetry reading on arrival to unit is Sinus Rhythm at 70BPM. Patient placed on bedside oxygen, weighed by bedscale and encouraged to call if they need something. All questions and concerns addressed, patient verbalized understanding. Note: Patient is alert but confused, bedrest with moderate assist to the commode. Patient has a smith down draining to bag with dark stephon cloudy with sediments urine. Patient came with PICC line times one lumen running NS at 100. Speech is clear, has hearing aid. With family at bedside, patient is resting in bed, on 2LNC saturating at 96%. Bed placed in lowest position, bed alarm turned on and call light within reach.
[2019-05-29] MEDS: TICAGRELOR 90 MG TAB PO SCH (22:00)
[2019-05-29] MEDS: DOCUSATE SOD 100 MG CAP PO SCH (22:54)
[2019-05-29] MEDS: ATORVASTATIN 20 MG TAB PO SCH (22:55)
--- NOTE | 2019-05-29 23:00 | NUR ---
Brilinta medication held d/t medication not available. Charge nurse made aware.
[2019-05-30] MEDS: ALBUTEROL SULF 2.5 MG/0.5ML(0.5%) NEB SOLN NEB SCH ×3 (00:31→17:54)
--- NOTE | 2019-05-30 00:33 | NUR ---
RT NOTE PT WAS SEEN BY RT FOR HHN TX. PT TOLERATES WELL VIA MASK. NO ADVERSE REACTION NOTED Addendum: 05/30/19 at 0033 by Zandra Brunson RT Amended: Links added.
[2019-05-30 04:41] VITALS: BP 122/45
[2019-05-30] MEDS: SODIUM CHLORIDE 0.9% 1,000 ML IV SCH ×2 (05:04→12:16)
[2019-05-30 06:04] LABS: Basophils # (auto) 0.1 uL; Basophils % (auto) 2.2 % (0.0-2.0); Eosinophils # (auto) 0.4 uL; Eosinophils % (auto) 6.2 % (0.0-7.0); Hematocrit 27.1 % (36.0-46.0); Hemoglobin 8.8 g/dL (12.2-16.2); Lymphocytes # (auto) 0.8 uL; Lymphocytes % (auto) 13.2 % (10.0-50.0); Mean Corpuscular Hemoglobin 29.8 pg (28.0-32.0); Mean Corpuscular Hgb Conc. 32.3 g/dL (32.0-36.0); Mean Corpuscular Volume 92.2 fL (80.0-100.0); Monocytes # (auto) 0.7 uL; Neutrophils % (auto) 67.4 % (37.0-80.0); Platelet Count (auto) 189 10^3/uL (140-450); Red Blood Cells 2.94 10^6/uL (4.0-5.20); Red Cell Distribution Width 15.9 % (11.8-14.3)
[2019-05-30] MEDS: LEVOTHYROXINE SODIUM 25 MCG TAB PO SCH (06:16)
[2019-05-30 06:24] LABS: Potassium 3.8 mmol/L (3.5-5.1)
[2019-05-30 06:26] LABS: Calcium 8.1 mg/dL (8.5-10.1)
[2019-05-30 09:00] VITALS: BP 119/52
[2019-05-30] MEDS ORDERED: FAMOTIDINE 20 MG TAB PO SCH (10:00)
[2019-05-30] MEDS: DIGOXIN 0.125 MG TAB PO SCH (10:00)
[2019-05-30] MEDS: cefTRIAXone 1GM/50ML D5W 50 ML IV SCH (10:23)
[2019-05-30] MEDS: PANTOPRAZOLE 40 MG TAB PO SCH (10:24)
[2019-05-30] MEDS: DOCUSATE SOD 100 MG CAP PO SCH ×2 (10:24→21:33)
[2019-05-30] MEDS: ASPirin-EC 81 mg tab PO SCH (10:24)
[2019-05-30] MEDS ORDERED: ERTAPENEM SOD INJ 1 GM in SODIUM CHL 0.9% 50 ML IV ONE (11:00)
--- NOTE | 2019-05-30 11:49 | NUR ---
RT NOTE: PT REFUSED TX AT THIS TIME. NO SIGNS OF RESPIRATORY DISTRESS. LUNG SOUNDS CLEAR/DIMINISHED T/O. ON RA SPO2 93 HR 83 RR 14. PT AWARE THAT RESPIRATORY WILL RETURN FOR NEXT SCHEDULED TX. WILL CONTINUE TO MONITOR.
[2019-05-30] MEDS: TICAGRELOR 90 MG TAB PO SCH ×2 (12:04→21:33)
[2019-05-30 13:00] VITALS: BP 116/51
[2019-05-30 17:00] VITALS: BP 110/44
--- NOTE | 2019-05-30 19:00 | NUR ---
OPENING NOTE Received report from day shift RN. Patient is A&O X's 3-4 with no s/s of distress noted. Patient able to tell me her name, , where she was at, and that knew she was in this hospital because she was sick but recalled that she was here not too long ago for an angiogram. Educated patient on POC and to use call light when in need of assistance. Patient verbalized understanding. Patient reported she did not feel hungry and did not eat dinner. PROCESS LABORATORY SPECIALIST brought patient broth and patient had very little of this. Encouraged patient to eat and we will be here if she needs any assistance. Bed is in lowest/locked position with side rails up X's 2 and call light is within reach of patient. Bed alarm is on. Will continue care.
[2019-05-30] MEDS: ATORVASTATIN 20 MG TAB PO SCH (21:33)
[2019-05-30] MEDS: RANOLAZINE ER 500 MG TAB PO SCH (21:33)
[2019-05-30 22:15] VITALS: BP 125/50
[2019-05-31] MEDS: ALBUTEROL SULF 2.5 MG/0.5ML(0.5%) NEB SOLN NEB SCH ×4 (00:38→18:37)
--- NOTE | 2019-05-31 00:39 | NUR ---
RT NOTE PT ASKED NOT TO BE WOKEN FOR THIS SCHEDULED TX IF SLEEPING. PT IS SLEEPING. NO SIGNS OF RESP DISTRESS NOTED BY RT. TX HELD PER PT REQUEST.
[2019-05-31] MEDS: SODIUM CHLORIDE 0.9% 1,000 ML IV SCH ×2 (03:40→20:20)
[2019-05-31 05:40] VITALS: BP 122/54
[2019-05-31 06:09] LABS: Basophils # (auto) 0.1 uL; Basophils % (auto) 1.7 % (0.0-2.0); Eosinophils # (auto) 0.4 uL; Hematocrit 25.5 % (36.0-46.0); Hemoglobin 8.3 g/dL (12.2-16.2); Lymphocytes # (auto) 0.9 uL; Lymphocytes % (auto) 18.5 % (10.0-50.0); Mean Corpuscular Hemoglobin 29.6 pg (28.0-32.0); Mean Corpuscular Hgb Conc. 32.8 g/dL (32.0-36.0); Mean Corpuscular Volume 90.3 fL (80.0-100.0); Monocytes # (auto) 0.6 uL; Monocytes % (auto) 11.7 % (0.0-12.0); Neutrophils # (auto) 2.8 uL; Neutrophils % (auto) 59.1 % (37.0-80.0); Platelet Count (auto) 199 10^3/uL (140-450); Red Blood Cells 2.82 10^6/uL (4.0-5.20); Red Cell Distribution Width 15.9 % (11.8-14.3); White Blood Cell 4.8 10^3/uL (4.4-10.8)
[2019-05-31] MEDS: LEVOTHYROXINE SODIUM 25 MCG TAB PO SCH (06:23)
[2019-05-31 06:32] LABS: Albumin 2.4 g/dL (3.4-5.0); Calcium 7.8 mg/dL (8.5-10.1); Potassium 3.9 mmol/L (3.5-5.1)
[2019-05-31 06:41] LABS: Bilirubin, Total 0.6 mg/dL (0.2-1.0); Total Protein 5.5 g/dL (6.4-8.2)
--- NOTE | 2019-05-31 07:30 | NUR ---
PATIENT A&OX4 THIS MORNING. NO S/S OF DISTRESS NOTED AT THIS TIME. PATIENT UPDATED ON POC. ALL QUESTIONS ANSWERED. BED IN LOWEST LOCKED POSITION WITH CALL LIGHT WITHIN REACH. WILL CONTINUE CARE.
[2019-05-31 09:10] VITALS: BP 120/59
--- NOTE | 2019-05-31 09:50 | NUR ---
PATIENT WORKING WITH PHYSICAL THERAPY.
[2019-05-31] MEDS: ERTAPENEM SOD INJ 1 GM in SODIUM CHL 0.9% 50 ML IV SCH (09:57)
[2019-05-31] MEDS: DOCUSATE SOD 100 MG CAP PO SCH ×2 (10:02→21:34)
[2019-05-31] MEDS: PANTOPRAZOLE 40 MG TAB PO SCH (10:02)
[2019-05-31] MEDS: TICAGRELOR 90 MG TAB PO SCH ×2 (10:02→21:34)
[2019-05-31] MEDS: RANOLAZINE ER 500 MG TAB PO SCH ×2 (10:02→21:34)
[2019-05-31] MEDS: ASPirin-EC 81 mg tab PO SCH (10:02)
[2019-05-31] MEDS: DIGOXIN 0.125 MG TAB PO SCH (10:04)
[2019-05-31 13:06] VITALS: BP 124/55
[2019-05-31 17:21] VITALS: BP 140/69
--- NOTE | 2019-05-31 19:15 | NUR ---
RECEIVED PATIENT, AWAKE, ALERT, ORIENTED X3-4. NO S/S OF RESPIRATORY DISTRESS, DENIES ANY PAIN. ORIENTED ON PLAN OF CARE. BED IS LOCKED AND IN LOWEST LEVEL, SIDE RAILS UP X2, BED ALARM ON, CALL LIGHT WITHIN REACH. WILL CONTINUE TO MONITOR
[2019-05-31] MEDS: ATORVASTATIN 20 MG TAB PO SCH (21:34)
[2019-05-31 22:10] VITALS: BP 138/75
[2019-06-01 05:14] VITALS: BP 133/55
[2019-06-01] MEDS ORDERED: SODIUM CHLORIDE 0.9 % NEB SOLN 3ML NEB ONE ×2 (05:42→10:53)
[2019-06-01] MEDS: ALBUTEROL SULF 2.5 MG/0.5ML(0.5%) NEB SOLN NEB SCH ×5 (06:16→23:29)
[2019-06-01] MEDS: LEVOTHYROXINE SODIUM 25 MCG TAB PO SCH (06:19)
[2019-06-01 06:57] LABS: Basophils # (auto) 0.1 uL; Basophils % (auto) 1.4 % (0.0-2.0); Eosinophils # (auto) 0.5 uL; Eosinophils % (auto) 9.9 % (0.0-7.0); Hematocrit 26.1 % (36.0-46.0); Hemoglobin 8.6 g/dL (12.2-16.2); Lymphocytes # (auto) 0.8 uL; Lymphocytes % (auto) 15.8 % (10.0-50.0); Mean Corpuscular Hemoglobin 29.7 pg (28.0-32.0); Mean Corpuscular Hgb Conc. 33.2 g/dL (32.0-36.0); Mean Corpuscular Volume 89.5 fL (80.0-100.0); Monocytes # (auto) 0.5 uL; Monocytes % (auto) 9.9 % (0.0-12.0); Neutrophils # (auto) 3.3 uL; Platelet Count (auto) 213 10^3/uL (140-450); Red Blood Cells 2.91 10^6/uL (4.0-5.20); Red Cell Distribution Width 15.7 % (11.8-14.3); White Blood Cell 5.3 10^3/uL (4.4-10.8)
[2019-06-01 07:17] LABS: Albumin 2.6 g/dL (3.4-5.0); Calcium 8.5 mg/dL (8.5-10.1); Potassium 3.8 mmol/L (3.5-5.1)
--- NOTE | 2019-06-01 07:18 | NUR ---
CARE ENDORSED TO AM SHIFT RN
[2019-06-01 07:21] LABS: Bilirubin, Total 0.6 mg/dL (0.2-1.0)
--- NOTE | 2019-06-01 07:42 | NUR ---
Opening Note Assumed pt care from [facility] nurse. Pt is a/ox3-4; pt is slightly confused upon initial assessment; confused regarding care and frequently repeating self. Pt is currently laying in bed with no complaints at this time. Discussed POC with pt; pt verbalized understanding. Safety measures maintained with call light within reach, bed in lowest position, bed alarm on, and side rails up. Will continue to monitor for changes q1hr and prn.
[2019-06-01 09:00] VITALS: BP 147/68
[2019-06-01] MEDS: TICAGRELOR 90 MG TAB PO SCH ×2 (09:11→22:22)
[2019-06-01] MEDS: ERTAPENEM SOD INJ 1 GM in SODIUM CHL 0.9% 50 ML IV SCH (09:11)
[2019-06-01] MEDS: PANTOPRAZOLE 40 MG TAB PO SCH (09:11)
[2019-06-01] MEDS: DOCUSATE SOD 100 MG CAP PO SCH ×2 (09:11→22:22)
[2019-06-01] MEDS: RANOLAZINE ER 500 MG TAB PO SCH ×2 (09:11→22:22)
[2019-06-01] MEDS: ASPirin-EC 81 mg tab PO SCH (09:12)
[2019-06-01] MEDS: DIGOXIN 0.125 MG TAB PO SCH (09:13)
--- NOTE | 2019-06-01 09:40 | NUR ---
Pt Ambulated to Bedside Commode with Moderate Assistance Moderate assistance required upon ambulation. Bed alarm set for precautionary reasons. Pt instructed to call if need assistance. Will continue to monitor.
--- NOTE | 2019-06-01 09:58 | NUR ---
Dr Watson at Bedside Addendum: 06/01/19 at 1020 by SHELLI LIMA RN RN STATED THAT PATIENT MAY HAVE OUTSIDE FOOD
--- NOTE | 2019-06-01 10:30 | NUR ---
PT REFUSED P.T. ATTEMPT P.T. LATER.
[2019-06-01] MEDS: SODIUM CHLORIDE 0.9% 1,000 ML IV SCH (12:22)
[2019-06-01 13:00] VITALS: BP 150/75
[2019-06-01 17:00] VITALS: BP 153/80
--- NOTE | 2019-06-01 17:16 | NUR ---
Elevated BP Reported BP of 153/80 with a HR of 94 reported. Reassessed BP; currently 149/81 with a HR of 79. Will continue to monitor at this time.
--- NOTE | 2019-06-01 19:36 | NUR ---
RECEIVED PATIENT FROM DAY SHIFT RN. PATIENT RESTING IN BED. NO S/S OF DISTRESS NOTED. DENIED PAIN FOR NOW. COPELAND CATH IN PLACE DRAINING GRAVITY. POC INSTRUCTED AND ENCOURAGED PATIENT TO CALL FOR FINANCIAL SERVICES DIRECTOR IF NEEDED. BED IN LOWEST POSITION WITH SIDE RAILS UP X 2. CALL WYNN WITHIN REACH. ALARM ON. CONTINUE TO MONITOR FOR CHANGES Q1H AND PRN.
[2019-06-01 21:34] VITALS: BP 146/93
[2019-06-01] MEDS: ATORVASTATIN 20 MG TAB PO SCH (22:00)
[2019-06-01 22:33] VITALS: BP 146/93
--- NOTE | 2019-06-01 22:38 | NUR ---
SCHEDULED ORAL MEDICATION GIVEN ORDERED. PATIENT SWALLOWED WELL. NO S/S OF ASPIRATION NOTED. CONTINUE TO MONITOR.
--- NOTE | 2019-06-02 03:28 | NUR ---
PATIENT TRIED TO GET OUT OF BED. REORIENTED PATIENT PLACE, TIME, AND SITUATION. PATIENT REPEATED BACK. PATIENT IS NEAR NURSE STATION. BED ALARM ON. CONTINUE TO MONITOR.
[2019-06-02 05:30] VITALS: BP 138/77
[2019-06-02] MEDS: SODIUM CHLORIDE 0.9% 1,000 ML IV SCH ×2 (05:40→11:02)
[2019-06-02] MEDS: LEVOTHYROXINE SODIUM 25 MCG TAB PO SCH (06:14)
[2019-06-02] MEDS: ALBUTEROL SULF 2.5 MG/0.5ML(0.5%) NEB SOLN NEB SCH ×3 (06:35→19:07)
--- NOTE | 2019-06-02 06:46 | NUR ---
SCHEDULED ORAL MEDICATION GIVEN ORDERED. PATIENT SWALLOWED WELL. NO S/S OF ASPIRATION NOTED. CONTINUE TO MONITOR.
--- NOTE | 2019-06-02 07:41 | NUR ---
Opening Note Assumed pt care from [facility] nurse. PT is a/ox3-4; pt is slightly confused about situation and frequently repeating herself and states that she is "seeing things". Re-oriented pt and will continue to monitor. Pt is currently laying in bed with no complaints at this time. Discussed POC with pt; pt verbalized understanding. Safety measures maintained with call light within reach, bed in lowest position, bed alarm set and side rails up. Will continue to monitor for changes q1hr and prn.
[2019-06-02 09:00] VITALS: BP 134/60
[2019-06-02] MEDS: RANOLAZINE ER 500 MG TAB PO SCH ×2 (09:17→21:47)
[2019-06-02] MEDS: DOCUSATE SOD 100 MG CAP PO SCH ×2 (09:17→21:47)
[2019-06-02] MEDS: ERTAPENEM SOD INJ 1 GM in SODIUM CHL 0.9% 50 ML IV SCH (09:17)
[2019-06-02] MEDS: TICAGRELOR 90 MG TAB PO SCH ×2 (09:17→21:47)
[2019-06-02] MEDS: DIGOXIN 0.125 MG TAB PO SCH (09:19)
[2019-06-02] MEDS: PANTOPRAZOLE 40 MG TAB PO SCH (09:19)
[2019-06-02] MEDS: ASPirin-EC 81 mg tab PO SCH (09:19)
--- NOTE | 2019-06-02 10:19 | NUR ---
Dr Watson at Bedside MD requested that the culture and sensitivity of urine and blood be resulted for d/c planning. Called [facility], spoke with manufacturing plant technician, to which she stated that she should have the result today. Will continue to monitor and follow through.
--- NOTE | 2019-06-02 11:10 | NUR ---
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 Still awaiting final blood cultures. Will continue to monitor. Addendum: 06/03/19 at 0712 by SHELLI LIMA RN RN LEFT MESSAGE TO DR SANTANA REGARDING FINAL RESULT OF URINE POSITIVE FOR VRE AND PRESUMPTIVE ALBINA ALBICANS. [facility]
[2019-06-02 12:37] VITALS: BP 122/44
--- NOTE | 2019-06-02 14:50 | NUR ---
NUTRITION ASSESSMENT NOTES Please refer to link notes of nutrition screen form filed under the intervention section of the plan of care for further details. Est. Needs: 1700 kcal to 2050 kcal (25-30 kcal/kgBW), 55 gms to 69 gms pro (0.8-1.0 gms/kgBW). Will continue to monitor pertinent labs and reassess nutrient need prn Thank you. Addendum: 06/02/19 at [address] Amended: Links added.
--- NOTE | 2019-06-02 16:07 | NUR ---
Discharge Planning Son, Kyle, at bedside with pt. Expressed wish to possibly send patient to another SNF other than [facility] upon d/c. Pt son states that he believes "she did better" at [facility] when compared to [facility]. Discussed POC with pt's son and that we would keep informed him the discharge planning. Son expressed that both him and his sister are on the same page as far as discharge planning. Son: Kyle [phone] Daughter: Sonia [phone]
[2019-06-02 17:00] VITALS: BP 130/61
--- NOTE | 2019-06-02 19:26 | NUR ---
RECEIVED PATIENT FROM DAY SHIFT RN. PATIENT RESTING IN BED. NO S/S OF DISTRESS NOTED. DENIED PAIN FOR NOW. COPELAND CATH IN PLACE DRAINING GRAVITY. POC INSTRUCTED AND ENCOURAGED PATIENT TO CALL FOR UNARMED SECURITY OFFICER IF NEEDED. BED IN LOWEST POSITION WITH SIDE RAILS UP X 2. CALL WYNN WITHIN REACH. ALARM ON. CONTINUE TO MONITOR FOR CHANGES Q1H AND PRN.
[2019-06-02] MEDS: ATORVASTATIN 20 MG TAB PO SCH (21:48)
[2019-06-02 21:54] VITALS: BP 110/59
--- NOTE | 2019-06-02 22:05 | NUR ---
SCHEDULED ORAL MEDICATION GIVEN ORDERED. PATIENT SWALLOWED WELL. NO S/S OF ASPIRATION NOTED. CONTINUE TO MONITOR.
[2019-06-03] MEDS: ALBUTEROL SULF 2.5 MG/0.5ML(0.5%) NEB SOLN NEB SCH ×4 (00:25→18:44)
--- NOTE | 2019-06-03 02:51 | NUR ---
PATIENT SLEEPING. NO S/S OF DISTRESS NOTED. CONTINUE TO MONITOR.
[2019-06-03 05:30] VITALS: BP 122/61
[2019-06-03 06:15] LABS: Basophils # (auto) 0.1 uL; Hemoglobin 8.3 g/dL (12.2-16.2); Lymphocytes # (auto) 0.9 uL; Monocytes # (auto) 0.5 uL
[2019-06-03] MEDS: LEVOTHYROXINE SODIUM 25 MCG TAB PO SCH (06:17)
[2019-06-03 06:19] LABS: Basophils % (auto) 1.4 % (0.0-2.0); Eosinophils # (auto) 0.5 uL; Eosinophils % (auto) 11.4 % (0.0-7.0); Hematocrit 24.6 % (36.0-46.0); Lymphocytes % (auto) 19.5 % (10.0-50.0); Mean Corpuscular Hemoglobin 30.4 pg (28.0-32.0); Mean Corpuscular Hgb Conc. 33.9 g/dL (32.0-36.0); Mean Corpuscular Volume 89.5 fL (80.0-100.0); Monocytes % (auto) 11.3 % (0.0-12.0); Neutrophils # (auto) 2.7 uL; Neutrophils % (auto) 56.4 % (37.0-80.0); Platelet Count (auto) 227 10^3/uL (140-450); Red Blood Cells 2.75 10^6/uL (4.0-5.20); Red Cell Distribution Width 15.9 % (11.8-14.3); White Blood Cell 4.8 10^3/uL (4.4-10.8)
[2019-06-03 06:28] LABS: BUN/Creatinine Ratio 11.3; Calcium 8.2 mg/dL (8.5-10.1); Potassium 3.9 mmol/L (3.5-5.1)
--- NOTE | 2019-06-03 06:28 | NUR ---
SCHEDULED ORAL MEDICATION GIVEN ORDERED. PATIENT SWALLOWED WELL. NO S/S OF ASPIRATION NOTED. CONTINUE TO MONITOR.
--- NOTE | 2019-06-03 07:17 | NUR ---
Paged Dr Rose Pt has not consented for procedure, EDG and colonoscopy, scheduled for today. Pt states that she still has some additional questions and would like to have risks better explained. Paged to notify. Pts prepared for procedure otherwise. Will continue to monitor. Addendum: 06/03/19 at 0749 by SHELLI LIMA RN RN WRONG PATIENT; PLEASE DISREGARD.
--- NOTE | 2019-06-03 07:29 | NUR ---
Opening Note Assumed pt care from [facility] nurse. Pt is a/ox3-4; slightly confused but appears more oriented than compared to yesterday morning; oriented to self, place, and time. Pt is currently laying in bed with no complaints at this time. Discussed POC with pt; pt verbalized understanding. Safety measures maintained with call light within reach, bed in lowest position, side rail sup and bed alarm on. Will continue to monitor for changes q1hr and prn.
[2019-06-03 09:00] VITALS: BP 107/52
--- NOTE | 2019-06-03 09:04 | NUR ---
Dr Watson At Bedside MD to start pt on Zyvox PO one dose now and then scheduled BID. Also requested that I provide pt with prescription for home and to start at home. Possible d/c planning for tomorrow. Addendum: 06/03/19 at 0912 by SHELLI LIMA RN RN PRESCRIPTION TAKEN TO [facility]. PHARMACY WILL SEE IF PRESCRIPTION CAN BE PROCESSED. Addendum: 06/03/19 at 1052 by SHELLI LIMA RN RN Pt's insurance will cover the medication; just a copay is due. Will notify the MD. requested that the smith catheter be removed. Will implement and follow through.
[2019-06-03] MEDS: RANOLAZINE ER 500 MG TAB PO SCH ×2 (09:38→21:38)
[2019-06-03] MEDS: ASPirin-EC 81 mg tab PO SCH (09:38)
[2019-06-03] MEDS: PANTOPRAZOLE 40 MG TAB PO SCH (09:39)
[2019-06-03] MEDS: TICAGRELOR 90 MG TAB PO SCH ×2 (09:39→21:37)
[2019-06-03] MEDS: DIGOXIN 0.125 MG TAB PO SCH (09:39)
[2019-06-03] MEDS: DOCUSATE SOD 100 MG CAP PO SCH ×2 (09:39→21:38)
[2019-06-03] MEDS ORDERED: LINEZOLID 600MG TABLET PO SCH (10:00)
[2019-06-03] MEDS ORDERED: LINEZOLID 600MG TABLET PO ONE (10:00)
[2019-06-03] MEDS: LINEZOLID 600MG TABLET PO SCH ×2 (10:12→21:38)
--- NOTE | 2019-06-03 10:30 | NUR ---
PT PARTICIPATED WITH PHYSICAL THERAPY Pt able to ambulate with stool in room. Pt tolerated ambulation well. Pt is now in chair. Instructed to call when desires to go back to bed. Provided call light to pt.
--- NOTE | 2019-06-03 10:49 | NUR ---
Pharmacy Called Pharmacy stated that we do not have an alternative form of the Fluconazole. Suggested to change the Lipitor to Pravastatin and for the Ranexa dose to not exceed 500 mg. Also suggested that we closely monitor the patient for any adverse signs and symptoms. Will page Dr Watson to notify. Addendum: 06/03/19 at 1111 by SHELLI LIMA RN RN Left message for MD regarding update.
--- NOTE | 2019-06-03 11:59 | NUR ---
Smith Catheter Removed Smith removed from patient. Pt tolerated removal well. Terrie-area was cleaned after removal. 525mL of urine present in smith prior to removal. Pt instructed to call when feel the need to void and we will assist her to the bedside commode; pt verbalized understanding. Addendum: 06/03/19 at 1507 by SHELLI LIMA RN RN PT VOIDED SINCE REMOVAL WITHOUT ANY DIFFICULTY. WILL CONTINUE TO MONITOR.
[2019-06-03 13:00] VITALS: BP 106/41
[2019-06-03] MEDS: SODIUM CHLORIDE 0.9% 1,000 ML IV SCH (15:00)
--- NOTE | 2019-06-03 15:07 | NUR ---
ZYVOX PRESCRIPTION Prescription for Zyvox was taken down to [facility]. Prescription was filled and awaiting for patient/family tack picker. Need co-pay. Will endorse to [facility] nurse for D/C planning.
[2019-06-03 17:00] VITALS: BP 123/62
--- NOTE | 2019-06-03 19:14 | NUR ---
RECEIVED PATIENT FROM DAY SHIFT RN. PATIENT RESTING IN BED. NO S/S OF DISTRESS NOTED. DENIED PAIN FOR NOW. POC INSTRUCTED AND ENCOURAGED PATIENT TO CALL FOR FACILITIES ASSISTANT IF NEEDED. BED IN LOWEST POSITION WITH SIDE RAILS UP X 2. CALL WYNN WITHIN REACH. ALARM ON. CONTINUE TO MONITOR FOR CHANGES Q1H AND PRN.
[2019-06-03] MEDS: ATORVASTATIN 20 MG TAB PO SCH (21:38)
--- NOTE | 2019-06-03 21:49 | NUR ---
SCHEDULED ORAL MEDICATION GIVEN ORDERED. PATIENT SWALLOWED WELL. NO S/S OF ASPIRATION NOTED. CONTINUE TO MONITOR.
[2019-06-03 21:54] VITALS: BP 129/64
[2019-06-04] MEDS: ALBUTEROL SULF 2.5 MG/0.5ML(0.5%) NEB SOLN NEB SCH ×4 (00:52→18:18)
--- NOTE | 2019-06-04 01:55 | NUR ---
ASSISTED PATIENT TO BEDSIDE COMMODE. PATIENT TOLERATED WELL. NO S/S OF DISTRESS NOTED. CONTINUE TO MONITOR.
--- NOTE | 2019-06-04 03:56 | NUR ---
PATIENT SLEEPING. NO S/S OF DISTRESS NOTED. CONTINUE TO MONITOR.
[2019-06-04 05:38] VITALS: BP 133/61
[2019-06-04] MEDS: LEVOTHYROXINE SODIUM 25 MCG TAB PO SCH (06:24)
--- NOTE | 2019-06-04 06:25 | NUR ---
SCHEDULED ORAL MEDICATION GIVEN ORDERED. PATIENT SWALLOWED WELL. NO S/S OF ASPIRATION NOTED. CONTINUE TO MONITOR.
--- NOTE | 2019-06-04 08:00 | NUR ---
Opening Note Assumed care of patient, she is A & O x4, no s/s of distress at this time. Assisted patient to bedside commode. Patient is comfortable at this time. POC discussed with patient. Bed is in lowest, locked position, call light within reach, bed rails up x2, bed alarm on. Will continue to monitor Q1h and PRN.
--- NOTE | 2019-06-04 08:39 | NUR ---
Dr. Watson at bedside. Spoke to Sonia, daughter of patient regarding patient needs at home and antibiotics to be taken at home.
[2019-06-04 09:00] VITALS: BP 92/46
[2019-06-04] MEDS: DOCUSATE SOD 100 MG CAP PO SCH (10:03)
[2019-06-04] MEDS: LINEZOLID 600MG TABLET PO SCH (10:03)
[2019-06-04] MEDS: TICAGRELOR 90 MG TAB PO SCH (10:03)
[2019-06-04] MEDS: SODIUM CHLORIDE 0.9% 1,000 ML IV SCH (10:03)
[2019-06-04] MEDS: RANOLAZINE ER 500 MG TAB PO SCH (10:04)
[2019-06-04] MEDS: PANTOPRAZOLE 40 MG TAB PO SCH (10:04)
[2019-06-04] MEDS: ASPirin-EC 81 mg tab PO SCH (10:04)
[2019-06-04] MEDS: DIGOXIN 0.125 MG TAB PO SCH (10:05)
[2019-06-04 13:00] VITALS: BP 130/60
--- NOTE | 2019-06-04 16:10 | NUR ---
Discharge planning per Yudi Holguin, patient has orders to dc to SNF for therapy. Referral sent to [facility] [phone] as asked. Placed a follow up call, spoke with Margareth and was advised that patient is accepted to room [address] Watson who was attending and referring provider. Transportation was arranged with [facility] [phone], and scheduled picket labor union time is for 7pm. Nurse Harden was advised of dc plan. Addendum: 06/04/19 at 1615 by BRITNEY VALDES SS Amended: Links added.
--- NOTE | 2019-06-04 16:23 | NUR ---
assessment Patient is a 79 year old female who is alert and oriented. Prior to admission patient was skilled at [facility]. Per patient she does not want to return to [facility], but is requesting [facility]. Patient informed me her PCP is Dr Renay Watson. Patient informed me she has a fww, cane, and 02 for home use. Patient will still need rehab prior to returning home. Patient agrees to rehab at [facility]. I informed patient she has a right to speak to a social insurance specialist regarding all care. I informed patient she has a right to participate in any and all discharge planning. Patient is aware of visiting hours on the hospital floor. I informed patient she has a right to privacy. Patient has a POA and advanced directive. Patient verbalized understanding and agreed to discharge plan. Addendum: 06/04/19 at 1625 by Merissa YEE Amended: Links added.
[2019-06-04] MEDS ORDERED: LINE1TAB6 PO (16:38)
--- NOTE | 2019-06-04 16:45 | NUR ---
Called familySonia to notify of patient discharge Message left for family. Will attempt to call again in one hour.
--- NOTE | 2019-06-04 16:51 | NUR ---
Spoke to Sonia, daughter Notified of discharge to [facility]. She will be coming to [facility] prior to pickup time at 1900.
[2019-06-04 17:40] VITALS: BP 135/76
--- NOTE | 2019-06-04 17:40 | NUR ---
Report called to ANTOLIN Yeung at [facility] Patient to be received to room 58A, notified of picking machine operator helper time at 1900. Patient aware of transfer and agrees. All questions answered to RN satisfaction. Patient is comfortable at this time, no s/s of distress.
--- NOTE | 2019-06-04 19:20 | NUR ---
Discharge instructions given as ordered. Encourage to follow up with [facility] Physician as instructed. All questions and concerns addressed. Patient verbalized understanding. Medication reconciliation form completed and copy given to patient. MRSA swab collected and sent. PICC IV removed with catheter intact, pressure dressing applied. Patient tolerated well. Telemetry unit returned to ICU. Patient picked up by [employer] [facility] via gurney with all personal belongings, accompanied by family member Sonia. No distress noted at time of departure.
== END 2019-06-04 19:22 | DRG 871 ==
LOC: EDBD 11:48 → ER 12:04 → TELE 12:05 → TELE-EAST 21:28
PROVIDERS: ADMIT Nurse Practitioner Acute Care; ATTEND Internal Medicine
DX: A41.9 Sepsis, unspecified organism (principal); E43 Unspecified severe protein-calorie malnutrition; G92 Toxic encephalopathy; I25.810 Atherosclerosis of coronary artery bypass graft(s) without angina pectoris; J96.10 Chronic respiratory failure, unspecified whether with hypoxia or hypercapnia; I69.354 Hemiplegia and hemiparesis following cerebral infarction affecting left non-dominant side; I13.0 Hypertensive heart and chronic kidney disease with heart failure and stage 1 through stage 4 chronic kidney disease, or unspecified chronic kidney disease; I42.9 Cardiomyopathy, unspecified; N30.00 Acute cystitis without hematuria; E03.9 Hypothyroidism, unspecified; J44.9 Chronic obstructive pulmonary disease, unspecified; N18.3 Chronic kidney disease, stage 3 (moderate); B96.20 Unspecified Escherichia coli [E. coli] as the cause of diseases classified elsewhere; D64.9 Anemia, unspecified; R65.20 Severe sepsis without septic shock; Z88.2 Allergy status to sulfonamides; Z88.1 Allergy status to other antibiotic agents; Z98.61 Coronary angioplasty status; Z68.23 Body mass index [BMI] 23.0-23.9, adult
CPT/HCPCS: 36415; 70450; 71045; 80048; 80053; 81001; 83605; 83735; 84443; 84484; 85025; 87040; 87081; 87086; 87186; 93005; 94640; 97110; 97116; 97530; G0378; J0696; J1335; J2405

== ENCOUNTER → 2019-09-17 | Outpatient (CLI) | payer MEDICARE ==
[~2019-09-17] MED LIST changes: +LINE1TAB6 PO
[2019-09-17 12:23] LABS: BUN/Creatinine Ratio 11.9; Bilirubin, Total 0.3 mg/dL (0.2-1.0); Calcium 8.7 mg/dL (8.5-10.1); Total Protein 7.4 g/dL (6.4-8.2)
== END | disposition home or self-care (01) ==
LOC: LAB 10:00
PROVIDERS: ATTEND Internal Medicine
DX: I10 Essential (primary) hypertension (principal)
CPT/HCPCS: 36415; 80053

== ENCOUNTER 2019-09-30 14:26 | Inpatient (IN) | payer MEDICARE ==
[~2019-09-30] VITALS: Ht 152.4 cm; Wt 61.8 kg
[2019-09-30 18:55] LABS: Urine Bacteria FEW /hpf (None Seen); Urine Blood 2+ /uL (Negative); Urine Specific Gravity 1.004 (1.001-1.035); Urine WBC 23 /hpf (0 - 5)
[2019-09-30] MEDS ORDERED: PIPERACILLIN-TAZOB 3.375GM 100 ML IV ONE (19:15)
[2019-09-30 20:23] LABS: Basophils # (auto) 0 10 ^3/uL (0-0.2); Basophils % (auto) 0.5 % (0.0-2.0); Eosinophils # (auto) 0.2 10 ^3/uL (0-0.8); Eosinophils % (auto) 1.8 % (0.0-7.0); Lymphocytes # (auto) 1.1 10 ^3/uL (0.4-5.4); Lymphocytes % (auto) 12.5 % (10.0-50.0); Mean Corpuscular Hemoglobin 29.8 pg (28.0-32.0); Mean Corpuscular Hgb Conc. 33.2 g/dL (32.0-36.0); Mean Corpuscular Volume 89.6 fL (80.0-100.0); Monocytes # (auto) 0.7 10 ^3/uL (0-1.3); Monocytes % (auto) 8.2 % (0.0-12.0); Neutrophils # (auto) 6.6 10 ^3/uL (1.6-8.6); Nucleated Red Blood Cells % 0.1 %; Platelet Count (auto) 303 10^3/uL (140-450); Red Blood Cells 3.68 10^6/uL (4.0-5.20); Red Cell Distribution Width 17.1 % (11.8-14.3); White Blood Cell 8.6 10^3/uL (4.4-10.8)
[2019-09-30 21:37] LABS: Albumin 2.5 g/dL (3.4-5.0); BUN/Creatinine Ratio 16.1; Potassium 3.4 mmol/L (3.5-5.1)
[2019-09-30 21:47] LABS: Bilirubin, Total 0.3 mg/dL (0.2-1.0); Total Protein 6.8 g/dL (6.4-8.2)
[2019-10-01] VITALS (7 sets, daily range): BP systolic 104–131; BP diastolic 46–92
[2019-10-01] MEDS ORDERED: TEMAZEPAM 15 MG CAP PO PRN (00:30)
[2019-10-01] MEDS ORDERED: DOCUSATE SOD 100 MG CAP PO PRN (00:30)
[2019-10-01] MEDS ORDERED: ALBUTEROL SULF 2.5 MG/0.5ML(0.5%) NEB SOLN NEB PRN (00:30)
[2019-10-01] MEDS ORDERED: ERTAPENEM SOD INJ 1 GM in SODIUM CHL 0.9% 50 ML IV ONE (00:30)
[2019-10-01] MEDS ORDERED: ONDANSETRON HCL 4 MG/2 ML VIAL IV PRN (00:30)
[2019-10-01] MEDS ORDERED: DEXTROSE (50%) 50ML SYRG IV PRN (00:30)
[2019-10-01] MEDS ORDERED: NS 0.9% IV ONE (01:00)
[2019-10-01] MEDS ORDERED: ERTAPENEM IV ONE (01:00)
[2019-10-01] MEDS ORDERED: ERTAPENEM SOD 1 GM INJ VIAL ONE ×2 (02:27→02:53)
[2019-10-01] MEDS ORDERED: ROSU40TA PO (03:46)
[2019-10-01] MEDS: InsuLIN REG 1unit/0.01ml Soln (100units/ml) SC SCH ×3 (07:00→17:00)
[2019-10-01] MEDS: ACCU-CHEK COMFORT CURVE STRIP VI SCH ×4 (07:04→22:59)
[2019-10-01] MEDS: LEVOTHYROXINE SODIUM 25 MCG TAB PO SCH (07:40)
[2019-10-01 08:48] LABS: Albumin 2.6 g/dL (3.4-5.0); Calcium 8.9 mg/dL (8.5-10.1); Potassium 3.6 mmol/L (3.5-5.1)
[2019-10-01 08:52] LABS: Bilirubin, Total 0.2 mg/dL (0.2-1.0); Total Protein 6.8 g/dL (6.4-8.2)
[2019-10-01] MEDS ORDERED: ERTAPENEM IV SCH (10:00)
[2019-10-01] MEDS ORDERED: NS 0.9% IV SCH (10:00)
[2019-10-01] MEDS ORDERED: ERTAPENEM SOD INJ 1 GM in SODIUM CHL 0.9% 50 ML IV SCH (10:00)
[2019-10-01] MEDS: FUROSEMIDE 40 MG TAB PO SCH (10:00)
[2019-10-01] MEDS: RANOLAZINE ER 500 MG TAB PO SCH (10:37)
[2019-10-01] MEDS: DIGOXIN 0.125 MG TAB PO SCH (10:38)
[2019-10-01] MEDS: PANTOPRAZOLE 40 MG TAB PO SCH (10:38)
[2019-10-01] MEDS: ACETAMINOPHEN 325 MG TAB PO PRN (10:39)
[2019-10-01] MEDS: SACUBITRIL-VALSARTAN 24mg/26mg TAB PO SCH (10:39)
[2019-10-01] MEDS: TICAGRELOR 90 MG TAB PO SCH ×2 (10:40→22:43)
[2019-10-01 10:57] LABS: INR 1.01 (0.9-1.15)
[2019-10-01] MEDS ORDERED: ATORVASTATIN 20 MG TAB PO SCH (22:00)
[2019-10-01] MEDS ORDERED: InsuLIN REG 1unit/0.01ml Soln (100units/ml) SC SCH (22:00)
[2019-10-02] MEDS: ACETAMINOPHEN 325 MG TAB PO PRN (00:23)
[2019-10-02 04:58] VITALS: BP 111/62
[2019-10-02] MEDS ORDERED: ERTAPENEM IV SCH (05:00)
[2019-10-02] MEDS ORDERED: NS 0.9% IV SCH (05:00)
[2019-10-02] MEDS: ACCU-CHEK COMFORT CURVE STRIP VI SCH ×2 (06:02→11:55)
[2019-10-02] MEDS: InsuLIN REG 1unit/0.01ml Soln (100units/ml) SC SCH ×2 (06:03→11:30)
[2019-10-02 06:23] LABS: Potassium 3.7 mmol/L (3.5-5.1)
[2019-10-02 06:31] LABS: Albumin 2.3 g/dL (3.4-5.0); BUN/Creatinine Ratio 18.4; Calcium 8.8 mg/dL (8.5-10.1)
[2019-10-02 06:43] LABS: Bilirubin, Total 0.2 mg/dL (0.2-1.0); Total Protein 6.2 g/dL (6.4-8.2)
[2019-10-02] MEDS: LEVOTHYROXINE SODIUM 25 MCG TAB PO SCH (06:48)
[2019-10-02 08:00] VITALS: BP 122/51
[2019-10-02 09:00] VITALS: BP 109/58
[2019-10-02] MEDS: FUROSEMIDE 40 MG TAB PO SCH (10:00)
[2019-10-02] MEDS: TICAGRELOR 90 MG TAB PO SCH (10:32)
[2019-10-02] MEDS: DIGOXIN 0.125 MG TAB PO SCH (10:32)
[2019-10-02] MEDS: SACUBITRIL-VALSARTAN 24mg/26mg TAB PO SCH (10:33)
[2019-10-02] MEDS: PANTOPRAZOLE 40 MG TAB PO SCH (10:33)
[2019-10-02] MEDS: RANOLAZINE ER 500 MG TAB PO SCH (10:33)
[2019-10-02 11:52] VITALS: BP 122/51
[2019-10-02 13:00] VITALS: BP 122/56
[2019-10-03 09:23] LABS: Hepatitis B Surface Antibody Positive
[2019-10-03 09:50] LABS: Hepatitis A Total Antibody Negative
[2019-10-03 10:09] LABS: Hepatitis B Core Total AB Negative; Hepatitis B Surface Antigen Negative (Negative); Hepatitis C Antibody Negative (Negative)
== END 2019-10-02 14:10 | disposition home health service (06) | DRG 871 ==
LOC: ER 14:28 → OVERFLOW 14:29 → CENTRAL 10-01 01:17
PROVIDERS: ADMIT Nurse Practitioner; ATTEND Internal Medicine
DX: A41.9 Sepsis, unspecified organism (principal); E43 Unspecified severe protein-calorie malnutrition; N30.00 Acute cystitis without hematuria; I69.354 Hemiplegia and hemiparesis following cerebral infarction affecting left non-dominant side; R33.9 Retention of urine, unspecified; J44.9 Chronic obstructive pulmonary disease, unspecified; E03.9 Hypothyroidism, unspecified; E11.9 Type 2 diabetes mellitus without complications; I11.0 Hypertensive heart disease with heart failure; I50.9 Heart failure, unspecified; R94.5 Abnormal results of liver function studies; B96.20 Unspecified Escherichia coli [E. coli] as the cause of diseases classified elsewhere; Z87.440 Personal history of urinary (tract) infections; Z98.61 Coronary angioplasty status; Z95.0 Presence of cardiac pacemaker; Z85.3 Personal history of malignant neoplasm of breast; Z90.10 Acquired absence of unspecified breast and nipple; Z68.26 Body mass index [BMI] 26.0-26.9, adult; Z82.49 Family history of ischemic heart disease and other diseases of the circulatory system
CPT/HCPCS: 36415; 74176; 76705; 76775; 80053; 81001; 82962; 83516; 83690; 83880; 84443; 85025; 85610; 86225; 86235; 86704; 86706; 86708; 86803; 87086; 87088; 87186; 87340; 96365; 96367; G0378; J1335; J2543

== ENCOUNTER 2020-03-26 15:25 | Inpatient (IN) | payer MEDICARE ==
[~2020-03-26] VITALS: Ht 149.9 cm; Wt 60.6 kg
[~2020-03-26 15:25] MED LIST changes: -FURO40TA4 PO; -POTA-220 PO; -ROSU1TAB15; +ROSU40TA PO
[2020-03-26 16:06] LABS: Basophils # (auto) 0.1 10 ^3/uL (0-0.2); Basophils % (auto) 0.8 % (0.0-2.0); Eosinophils # (auto) 0.2 10 ^3/uL (0-0.8); Eosinophils % (auto) 2.4 % (0.0-7.0); Hemoglobin 9.7 g/dL (12.2-16.2); Lymphocytes # (auto) 1.3 10 ^3/uL (0.4-5.4); Lymphocytes % (auto) 17.7 % (10.0-50.0); Mean Corpuscular Hemoglobin 29.6 pg (28.0-32.0); Mean Corpuscular Hgb Conc. 32.4 g/dL (32.0-36.0); Mean Corpuscular Volume 91.6 fL (80.0-100.0); Monocytes # (auto) 0.5 10 ^3/uL (0-1.3); Monocytes % (auto) 7.4 % (0.0-12.0); Neutrophils # (auto) 5.3 10 ^3/uL (1.6-8.6); Neutrophils % (auto) 71.7 % (37.0-80.0); Platelet Count (auto) 257 10^3/uL (140-450); Red Blood Cells 3.27 10^6/uL (4.0-5.20); Red Cell Distribution Width 14.8 % (11.8-14.3); White Blood Cell 7.3 10^3/uL (4.4-10.8)
[2020-03-26 16:26] LABS: Albumin 3.1 g/dL (3.4-5.0); Anion Gap 5 (5-15); Blood Urea Nitrogen 24 mg/dL (7-18); Carbon Dioxide 28 mmol/L (21-32); Chloride 106 mmol/L (98-107); Glucose 151 mg/dL (74-106); Magnesium 2.6 mg/dL (1.6-2.6); Potassium 4.3 mmol/L (3.5-5.1); Sodium 139 mmol/L (136-145)
[2020-03-26 16:32] LABS: Alanine Aminotransferase 35 U/L (13-56); Alkaline Phosphatase 106 U/L (45-117); Aspartate Aminotransferase 26 U/L (15-37); BUN/Creatinine Ratio 17.4; Bilirubin, Total 0.3 mg/dL (0.2-1.0); GFR African American 47 mL/min; GFR Non-African American 39 mL/min; Total Protein 7.1 g/dL (6.4-8.2)
[2020-03-26] MEDS ORDERED: MORPHINE SULF INJ 2 MG/ML SYRINGE 1ML IV PRN (22:30)
[2020-03-26] MEDS ORDERED: NITROGLYCERIN 0.4 MG SL TAB SL PRN (22:30)
[2020-03-26] MEDS ORDERED: DEXTROSE (50%) 50ML SYRG IV PRN (22:30)
[2020-03-26] MEDS ORDERED: TEMAZEPAM 15 MG CAP PO PRN (22:30)
[2020-03-26] MEDS ORDERED: ACETAMINOPHEN 325 MG TAB PO PRN (22:30)
[2020-03-26 23:50] VITALS: BP 128/58
[2020-03-27 05:00] VITALS: BP 123/61
[2020-03-27] MEDS: ACCU-CHEK COMFORT CURVE STRIP VI SCH ×3 (06:32→16:30)
[2020-03-27] MEDS: InsuLIN REG 1unit/0.01ml Soln (100units/ml) SC SCH ×3 (06:33→16:29)
[2020-03-27 06:43] LABS: Basophils # (auto) 0.1 10 ^3/uL (0-0.2); Basophils % (auto) 0.8 % (0.0-2.0); Eosinophils # (auto) 0.2 10 ^3/uL (0-0.8); Eosinophils % (auto) 2.5 % (0.0-7.0); Hemoglobin 10.2 g/dL (12.2-16.2); Lymphocytes # (auto) 1.1 10 ^3/uL (0.4-5.4); Lymphocytes % (auto) 12.6 % (10.0-50.0); Mean Corpuscular Hemoglobin 30.1 pg (28.0-32.0); Mean Corpuscular Volume 91.1 fL (80.0-100.0); Monocytes # (auto) 0.6 10 ^3/uL (0-1.3); Monocytes % (auto) 6.8 % (0.0-12.0); Neutrophils # (auto) 6.5 10 ^3/uL (1.6-8.6); Neutrophils % (auto) 77.3 % (37.0-80.0); Nucleated Red Blood Cells % 0.1 %; Platelet Count (auto) 262 10^3/uL (140-450); White Blood Cell 8.4 10^3/uL (4.4-10.8)
[2020-03-27 07:03] LABS: BUN/Creatinine Ratio 16.9; Potassium 3.7 mmol/L (3.5-5.1)
[2020-03-27 09:43] LABS: Partial Thromboplastin Time 25.9 sec (23.0-31.2)
[2020-03-27] MEDS ORDERED: DIGOXIN 0.125 MG TAB PO SCH (10:00)
[2020-03-27] MEDS ORDERED: PANTOPRAZOLE 40 MG TAB PO SCH (10:00)
[2020-03-27] MEDS ORDERED: TICAGRELOR 90 MG TAB PO SCH (10:00)
[2020-03-27] MEDS ORDERED: GABAPENTIN 300 MG CAP PO SCH (10:00)
[2020-03-27] MEDS ORDERED: ASPirin 81 mg TAB PO SCH (10:00)
[2020-03-27] MEDS ORDERED: SACUBITRIL-VALSARTAN 24mg/26mg TAB PO SCH (10:00)
[2020-03-27] MEDS ORDERED: HEPARIN SODIUM (PORCINE) 5000 UNITS/ML 1ML VIAL ONE (12:01)
[2020-03-27] MEDS ORDERED: ANGIOMAX 250 MG VIAL IV ONE (12:01)
[2020-03-27] MEDS ORDERED: fentaNYL CITRATE 100 MCG/2 ML VL ONE (12:01)
[2020-03-27] MEDS ORDERED: MIDAZOLAM HCL 1MG/1ML-2 ML VIAL ONE (12:01)
[2020-03-27] MEDS ORDERED: VERAPAMIL 2.5MG/ML INJ 2ML VIAL IV ONE (12:01)
[2020-03-27] MEDS ORDERED: SODIUM CHL 0.9% 0 ML ONE (12:02)
[2020-03-27] MEDS ORDERED: LIDOCAINE 2%HCL (LOCAL ANESTH.) INJ 20ML MDV ONE (12:03)
[2020-03-27 13:45] VITALS: BP 122/70
[2020-03-27 14:15] VITALS: BP 108/60
[2020-03-27 16:35] VITALS: BP 96/50
[2020-03-27 17:00] VITALS: BP 99/47
[2020-03-27 17:22] VITALS: BP 108/52
[2020-03-27] MEDS ORDERED: METOPROLOL TARTRATE 25 MG TAB PO SCH (22:00)
[2020-03-27] MEDS ORDERED: InsuLIN REG 1unit/0.01ml Soln (100units/ml) SC SCH (22:00)
[2020-03-27] MEDS ORDERED: ATORVASTATIN 20 MG TAB PO SCH (22:00)
[2020-03-28] MEDS ORDERED: ASPirin 81 mg TAB PO SCH (10:00)
== END 2020-03-27 17:30 | disposition home or self-care (01) | DRG 287 ==
LOC: EDBD 15:25 → ER 15:25 → TELE 15:26 → TELE-WESTW 23:09
PROVIDERS: ADMIT Nurse Practitioner; ATTEND Internal Medicine
PROC: 4A023N7 Measurement of Cardiac Sampling and Pressure, Left Heart, Percutaneous Approach (ICD-10-PCS; principal; 2020-03-27)
PROC: B211YZZ Fluoroscopy of Multiple Coronary Arteries using Other Contrast (ICD-10-PCS; 2020-03-27)
PROC: B215YZZ Fluoroscopy of Left Heart using Other Contrast (ICD-10-PCS; 2020-03-27)
DX: T82.855A Stenosis of coronary artery stent, initial encounter (principal); E44.0 Moderate protein-calorie malnutrition; I13.0 Hypertensive heart and chronic kidney disease with heart failure and stage 1 through stage 4 chronic kidney disease, or unspecified chronic kidney disease; I50.22 Chronic systolic (congestive) heart failure; J96.10 Chronic respiratory failure, unspecified whether with hypoxia or hypercapnia; N17.9 Acute kidney failure, unspecified; N18.3 Chronic kidney disease, stage 3 (moderate); Z79.4 Long term (current) use of insulin; E11.22 Type 2 diabetes mellitus with diabetic chronic kidney disease; Z88.8 Allergy status to other drugs, medicaments and biological substances; Z68.27 Body mass index [BMI] 27.0-27.9, adult; Z80.0 Family history of malignant neoplasm of digestive organs; E78.5 Hyperlipidemia, unspecified; E07.9 Disorder of thyroid, unspecified; E03.9 Hypothyroidism, unspecified; D63.8 Anemia in other chronic diseases classified elsewhere; I25.10 Atherosclerotic heart disease of native coronary artery without angina pectoris; J44.9 Chronic obstructive pulmonary disease, unspecified; Y83.1 Surgical operation with implant of artificial internal device as the cause of abnormal reaction of the patient, or of later complication, without mention of misadventure at the time of the procedure; Z82.49 Family history of ischemic heart disease and other diseases of the circulatory system; Z85.3 Personal history of malignant neoplasm of breast; Y92.89 Other specified places as the place of occurrence of the external cause
CPT/HCPCS: 36415; 71045; 80048; 80053; 80162; 82607; 82962; 83036; 83735; 83880; 84484; 85025; 85610; 85730; 87081; 93005; 99152; G0378; J2250

== ENCOUNTER → 2020-08-12 | Outpatient (CLI) | payer MEDICARE ==
[~2020-08-12] MED LIST changes: -DIGO0.1238 PO; +DIGO1TAB48 PO
== END | disposition home or self-care (01) ==
LOC: Rad HDHVI 09:14
PROVIDERS: ATTEND Internal Medicine
DX: I08.1 Rheumatic disorders of both mitral and tricuspid valves (principal); I50.9 Heart failure, unspecified; I42.9 Cardiomyopathy, unspecified; Z90.10 Acquired absence of unspecified breast and nipple
CPT/HCPCS: 93306

== ENCOUNTER → 2020-09-07 | Outpatient (CLI) | payer MEDICARE ==
[2020-09-07 11:48] LABS: Basophils # (auto) 0.1 10 ^3/uL (0-0.2); Basophils % (auto) 1.2 % (0.0-2.0); Eosinophils # (auto) 0.3 10 ^3/uL (0-0.8); Eosinophils % (auto) 4.6 % (0.0-7.0); Hematocrit 29.1 % (36.0-46.0); Hemoglobin 9.7 g/dL (12.2-16.2); Lymphocytes # (auto) 0.8 10 ^3/uL (0.4-5.4); Lymphocytes % (auto) 13.8 % (10.0-50.0); Mean Corpuscular Hemoglobin 29.8 pg (28.0-32.0); Mean Corpuscular Hgb Conc. 33.2 g/dL (32.0-36.0); Mean Corpuscular Volume 89.8 fL (80.0-100.0); Monocytes # (auto) 0.4 10 ^3/uL (0-1.3); Monocytes % (auto) 7.1 % (0.0-12.0); Neutrophils # (auto) 4.5 10 ^3/uL (1.6-8.6); Neutrophils % (auto) 73.3 % (37.0-80.0); Platelet Count (auto) 240 10^3/uL (140-450); Red Blood Cells 3.25 10^6/uL (4.0-5.20); Red Cell Distribution Width 16.3 % (11.8-14.3); White Blood Cell 6.1 10^3/uL (4.4-10.8)
[2020-09-07 11:57] LABS: Urine Blood Negative /uL (Negative); Urine Specific Gravity 1.012 (1.001-1.035)
[2020-09-07 12:04] LABS: Free T4 (Free Thyroxine) 1.14 ng/dL (0.89-1.76)
[2020-09-07 12:10] LABS: Albumin 3.2 g/dL (3.4-5.0); BUN/Creatinine Ratio 22.3; Bilirubin, Total 0.2 mg/dL (0.2-1.0); Calcium 9.7 mg/dL (8.5-10.1); Total Protein 7.6 g/dL (6.4-8.2)
== END | disposition home or self-care (01) ==
LOC: LAB 09:50
PROVIDERS: ATTEND Internal Medicine
DX: D51.3 Other dietary vitamin B12 deficiency anemia (principal); I10 Essential (primary) hypertension; E11.9 Type 2 diabetes mellitus without complications; E55.9 Vitamin D deficiency, unspecified; D64.9 Anemia, unspecified; R00.2 Palpitations; R53.1 Weakness; R30.0 Dysuria
CPT/HCPCS: 36415; 80053; 80061; 81003; 82306; 82607; 83036; 84439; 84443; 85025; 87086

== ENCOUNTER → 2020-09-16 | Outpatient (CLI) | payer MEDICARE ==
[~2020-09-16] VITALS: Ht 152.4 cm; Wt 59.0 kg
[~2020-09-16] MED LIST changes: +ADENOSINE 50 MG in GIVE UN-DILUTED 0 ML IV ONE; +ADENOSINE 90 MG/30 ML INJ IV ONE
== END | disposition home or self-care (01) ==
LOC: Rad HDHVI 09:05
PROVIDERS: ATTEND Internal Medicine
DX: I11.0 Hypertensive heart disease with heart failure (principal); I50.9 Heart failure, unspecified; I25.10 Atherosclerotic heart disease of native coronary artery without angina pectoris; R06.02 Shortness of breath; R07.9 Chest pain, unspecified; E78.00 Pure hypercholesterolemia, unspecified; Z95.5 Presence of coronary angioplasty implant and graft; Z86.79 Personal history of other diseases of the circulatory system; Z95.0 Presence of cardiac pacemaker
CPT/HCPCS: 78452; 93005; 96374; 96375; A9500; J0153

== ENCOUNTER → 2020-09-17 | Outpatient (CLI) | payer MEDICARE ==
[~2020-09-17] MED LIST changes: -ADENOSINE 50 MG in GIVE UN-DILUTED 0 ML IV ONE; -ADENOSINE 90 MG/30 ML INJ IV ONE
[2020-09-17 11:54] LABS: % Iron Saturation 13.2 % (15-50)
== END | disposition home or self-care (01) ==
LOC: LAB 10:50
PROVIDERS: ATTEND Internal Medicine
DX: E61.1 Iron deficiency (principal)
CPT/HCPCS: 82728; 83540; 83550

== ENCOUNTER → 2020-10-19 | Outpatient (CLI) | payer MEDICARE ==
[~2020-10-19] MED LIST changes: +FUROSEMIDE 20 MG/2 ML VIAL IV ONE; +FUROSEMIDE 20 MG/2 ML VIAL ONE; +POTASSIUM CHL 10 Meq TABLET PO ONE
[2020-10-19 11:30] VITALS: BP 150/67
[2020-10-19 12:17] VITALS: BP 130/62
== END | disposition home or self-care (01) ==
LOC: CHF HDHVI 11:48
PROVIDERS: ATTEND Internal Medicine Cardiovascular Disease
DX: I11.0 Hypertensive heart disease with heart failure (principal); I50.9 Heart failure, unspecified; R60.9 Edema, unspecified; E87.6 Hypokalemia; I25.10 Atherosclerotic heart disease of native coronary artery without angina pectoris; E11.9 Type 2 diabetes mellitus without complications; E78.00 Pure hypercholesterolemia, unspecified; Z95.5 Presence of coronary angioplasty implant and graft; Z95.0 Presence of cardiac pacemaker
CPT/HCPCS: 96374; G0463; J1940

== ENCOUNTER → 2020-10-22 | Day surgery (SDC) | payer MEDICARE ==
[2020-10-19 17:15] LABS: Basophils # (auto) 0.1 10 ^3/uL (0-0.2); Eosinophils # (auto) 0.1 10 ^3/uL (0-0.8); Eosinophils % (auto) 2.4 % (0.0-7.0); Hemoglobin 11.2 g/dL (12.2-16.2); Lymphocytes # (auto) 1.2 10 ^3/uL (0.4-5.4); Lymphocytes % (auto) 20.8 % (10.0-50.0); Mean Corpuscular Hemoglobin 30.1 pg (28.0-32.0); Monocytes # (auto) 0.4 10 ^3/uL (0-1.3); Monocytes % (auto) 6.8 % (0.0-12.0); Neutrophils # (auto) 4.1 10 ^3/uL (1.6-8.6); Nucleated Red Blood Cells % 0.2 %; Platelet Count (auto) 212 10^3/uL (140-450); Red Blood Cells 3.73 10^6/uL (4.0-5.20); Red Cell Distribution Width 15.7 % (11.8-14.3); White Blood Cell 5.9 10^3/uL (4.4-10.8)
[2020-10-19 17:33] LABS: Urine Blood TRACE /uL (Negative); Urine Hyaline Cast FEW /lpf (0 - 2); Urine Mucus FEW (None Seen); Urine Specific Gravity 1.009 (1.001-1.035); Urine WBC 10 /hpf (0 - 5)
[2020-10-19 17:37] LABS: Urine Bacteria FEW /hpf (None Seen)
[2020-10-19 17:52] LABS: INR 0.98 (0.9-1.15); Partial Thromboplastin Time 25.9 sec (23.0-31.2)
[2020-10-19 18:21] LABS: Calcium 9.4 mg/dL (8.5-10.1); Potassium 3.9 mmol/L (3.5-5.1)
[2020-10-19 18:24] LABS: BUN/Creatinine Ratio 24.1; Bilirubin, Total 0.3 mg/dL (0.2-1.0); Total Protein 8.3 g/dL (6.4-8.2)
[~2020-10-22] VITALS: Ht 149.9 cm; Wt 63.5 kg
[~2020-10-22] MED LIST changes: +ALBUTEROL SULF 2.5 MG/0.5ML(0.5%) NEB SOLN NEB ONE; +ALBUTEROL SULF 2.5 MG/0.5ML(0.5%) NEB SOLN ONE; -FUROSEMIDE 20 MG/2 ML VIAL IV ONE; -FUROSEMIDE 20 MG/2 ML VIAL ONE; +MIDAZOLAM HCL 1MG/1ML-2 ML VIAL ONE; +ONDANSETRON HCL 4 MG/2 ML VIAL IV PRN; -POTASSIUM CHL 10 Meq TABLET PO ONE; +PROPOFOL 10 MG/ML 20 ML IV ONE; +fentaNYL CITRATE 100 MCG/2 ML VL ONE
[2020-10-22 13:20] VITALS: BP 151/63
== END | disposition home or self-care (01) ==
LOC: GI 08:07
PROVIDERS: ATTEND Internal Medicine Gastroenterology
DX: R19.5 Other fecal abnormalities (principal); K57.30 Diverticulosis of large intestine without perforation or abscess without bleeding; K64.8 Other hemorrhoids; G40.909 Epilepsy, unspecified, not intractable, without status epilepticus; I25.118 Atherosclerotic heart disease of native coronary artery with other forms of angina pectoris; J43.9 Emphysema, unspecified; E66.9 Obesity, unspecified; Z85.3 Personal history of malignant neoplasm of breast; Z20.822 Contact with and (suspected) exposure to COVID-19; Z98.890 Other specified postprocedural states; Z86.16 Personal history of COVID-19; Z68.30 Body mass index [BMI] 30.0-30.9, adult; Z88.1 Allergy status to other antibiotic agents; Z96.89 Presence of other specified functional implants; Z90.10 Acquired absence of unspecified breast and nipple; Z98.51 Tubal ligation status; Z87.891 Personal history of nicotine dependence; Z79.899 Other long term (current) drug therapy; Z80.0 Family history of malignant neoplasm of digestive organs; Z95.5 Presence of coronary angioplasty implant and graft
CPT/HCPCS: 36415; 43235; 45378; 80053; 81001; 85025; 85610; 85730; 94640; J2250; J2704; J3010; J7030; U0003; 99153; G0500

== ENCOUNTER → 2021-07-22 | Outpatient (CLI) | payer MEDICARE ==
[~2021-07-22] MED LIST changes: -ALBUTEROL SULF 2.5 MG/0.5ML(0.5%) NEB SOLN NEB ONE; -ALBUTEROL SULF 2.5 MG/0.5ML(0.5%) NEB SOLN ONE; -MIDAZOLAM HCL 1MG/1ML-2 ML VIAL ONE; -ONDANSETRON HCL 4 MG/2 ML VIAL IV PRN; -PROPOFOL 10 MG/ML 20 ML IV ONE; -fentaNYL CITRATE 100 MCG/2 ML VL ONE
== END | disposition home or self-care (01) ==
LOC: Rad HDHVI 09:53
PROVIDERS: ATTEND Internal Medicine
DX: I08.3 Combined rheumatic disorders of mitral, aortic and tricuspid valves (principal); I25.10 Atherosclerotic heart disease of native coronary artery without angina pectoris
CPT/HCPCS: 93306

== ENCOUNTER → 2021-09-14 | Outpatient (CLI) | payer MEDICARE ==
[2021-09-14 15:25] LABS: Basophils # (auto) 0.1 10 ^3/uL (0-0.2); Basophils % (auto) 0.9 % (0.0-2.0); Eosinophils # (auto) 0.2 10 ^3/uL (0-0.8); Eosinophils % (auto) 2.2 % (0.0-7.0); Hematocrit 36.3 % (36.0-46.0); Lymphocytes # (auto) 1.3 10 ^3/uL (0.4-5.4); Lymphocytes % (auto) 16.7 % (10.0-50.0); Mean Corpuscular Hemoglobin 30.4 pg (28.0-32.0); Mean Corpuscular Hgb Conc. 33.1 g/dL (32.0-36.0); Mean Corpuscular Volume 91.9 fL (80.0-100.0); Monocytes # (auto) 0.4 10 ^3/uL (0-1.3); Monocytes % (auto) 5.8 % (0.0-12.0); Neutrophils # (auto) 5.7 10 ^3/uL (1.6-8.6); Neutrophils % (auto) 74.4 % (37.0-80.0); Nucleated Red Blood Cells % 0.1 %; Red Blood Cells 3.94 10^6/uL (4.0-5.20); Red Cell Distribution Width 14.4 % (11.8-14.3); White Blood Cell 7.6 10^3/uL (4.4-10.8)
[2021-09-14 15:26] LABS: Urine Blood Negative /uL (Negative); Urine Specific Gravity 1.013 (1.001-1.035)
[2021-09-14 15:38] LABS: Albumin 3.7 g/dL (3.4-5.0); Calcium 9.2 mg/dL (8.5-10.1); Potassium 3.7 mmol/L (3.5-5.1)
[2021-09-14 15:42] LABS: BUN/Creatinine Ratio 27.3; Bilirubin, Total 0.3 mg/dL (0.2-1.0); Total Protein 7.6 g/dL (6.4-8.2)
[2021-09-15 11:08] LABS: Free T4 (Free Thyroxine) 1.34 ng/dL (0.89-1.76)
== END | disposition home or self-care (01) ==
LOC: LAB 11:50
PROVIDERS: ATTEND Internal Medicine
DX: E11.9 Type 2 diabetes mellitus without complications (principal); D51.3 Other dietary vitamin B12 deficiency anemia; D64.9 Anemia, unspecified; E55.9 Vitamin D deficiency, unspecified; I10 Essential (primary) hypertension; R00.2 Palpitations; R53.1 Weakness; R30.0 Dysuria
CPT/HCPCS: 36415; 80053; 80061; 80162; 81003; 82607; 83036; 84439; 84443; 85025; 87086

== ENCOUNTER → 2021-11-08 | Outpatient (CLI) | payer MEDICARE | END | disposition home or self-care (01) | LOC: LAB 10:08 | PROVIDERS: ATTEND Internal Medicine | DX: R94.4 Abnormal results of kidney function studies (principal) | CPT/HCPCS: 36415; 82565; 84520 ==

== ENCOUNTER → 2021-11-10 | Outpatient (CLI) | payer MEDICARE ==
[~2021-11-10] MED LIST changes: +IOHEXOL 350 MG/ML 100ML IJ ONE; +METOPROLOL TARTRATE 1MG/1ML-5ML VIAL IV ONE; +NITROGLYCERIN 0.4 MG SL TAB SL ONE; +NITROGLYCERIN 0.4 MG SL TAB SL PRN; +diphenhdrAMINE HCL 50 MG/1 ML VL IV ONE; +diphenhdrAMINE HCL 50 MG/1 ML VL ONE; +methylPREDNISolone SOD SUCC 125 MG/2 ML VL IV ONE; +methylPREDNISolone SOD SUCC 125 MG/2 ML VL ONE
[2021-11-10 09:07] VITALS: BP 151/84
[2021-11-10 12:05] VITALS: BP 135/70
== END | disposition home or self-care (01) ==
LOC: Rad HDHVI 10:23
PROVIDERS: ATTEND Internal Medicine
DX: I25.10 Atherosclerotic heart disease of native coronary artery without angina pectoris (principal); I10 Essential (primary) hypertension; E11.9 Type 2 diabetes mellitus without complications
CPT/HCPCS: 75571; 96374; 96375; G0463; J1200; J2930; Q9967

== ENCOUNTER → 2022-04-04 | Outpatient (CLI) | payer MEDICARE ==
[~2022-04-04] MED LIST changes: +ALBU108A14 IN; +ASPI-543 PO; +CARV3.1240 PO; +CLOP75TA70 PO; +FERR-20 PO; +FOLI1TAB6 PO; +HYDR12.56 PO; -IOHEXOL 350 MG/ML 100ML IJ ONE; -METOPROLOL TARTRATE 1MG/1ML-5ML VIAL IV ONE; +MULT-775 PO; +NITR0.4S29 SL; -NITROGLYCERIN 0.4 MG SL TAB SL ONE; -NITROGLYCERIN 0.4 MG SL TAB SL PRN; +POM PO; +[UNRECOGNIZED DRUG - CODE] PO; -diphenhdrAMINE HCL 50 MG/1 ML VL IV ONE; -diphenhdrAMINE HCL 50 MG/1 ML VL ONE; -methylPREDNISolone SOD SUCC 125 MG/2 ML VL IV ONE; -methylPREDNISolone SOD SUCC 125 MG/2 ML VL ONE
[2022-04-04 10:29] VITALS: BP 113/55
[2022-04-04 11:01] VITALS: BP 106/58
[2022-04-04 11:56] LABS: Basophils # (auto) 0.1 10 ^3/uL (0-0.2); Basophils % (auto) 0.9 % (0.0-2.0); Eosinophils # (auto) 0.2 10 ^3/uL (0-0.8); Eosinophils % (auto) 4.1 % (0.0-7.0); Hematocrit 35.7 % (36.0-46.0); Hemoglobin 11.8 g/dL (12.2-16.2); Lymphocytes % (auto) 17.9 % (10.0-50.0); Mean Corpuscular Hemoglobin 29.9 pg (28.0-32.0); Mean Corpuscular Volume 90.4 fL (80.0-100.0); Monocytes # (auto) 0.4 10 ^3/uL (0-1.3); Neutrophils # (auto) 4.1 10 ^3/uL (1.6-8.6); Neutrophils % (auto) 70.1 % (37.0-80.0); Red Blood Cells 3.94 10^6/uL (4.0-5.20); Red Cell Distribution Width 14.4 % (11.8-14.3); White Blood Cell 5.8 10^3/uL (4.4-10.8)
[2022-04-04 12:12] LABS: Potassium 3.6 mmol/L (3.5-5.1)
[2022-04-04 12:17] LABS: INR 0.96 (0.9-1.15); Partial Thromboplastin Time 27.9 sec (24.6-33.4)
[2022-04-04 12:29] LABS: BUN/Creatinine Ratio 24.5
== END | disposition home or self-care (01) ==
LOC: Rad HDHVI 10:14
PROVIDERS: ATTEND Internal Medicine
DX: Z01.818 Encounter for other preprocedural examination (principal); R79.1 Abnormal coagulation profile; I82.402 Acute embolism and thrombosis of unspecified deep veins of left lower extremity; I82.90 Acute embolism and thrombosis of unspecified vein
CPT/HCPCS: 36415; 71046; 80048; 85025; 85610; 85730; 93005; G0463

== ENCOUNTER 2022-04-06 08:14 | Day surgery (SDC) | payer MEDICARE ==
[2022-04-06] VITALS (8 sets, daily range): BP systolic 91–117; BP diastolic 47–69
[~2022-04-06] VITALS: Ht 147.3 cm; Wt 56.7 kg
[~2022-04-06 08:14] MED LIST changes: -ALB5IS NEB; -LINE1TAB6 PO; -TICA90TA PO
[2022-04-06] MEDS ORDERED: HEPARIN SODIUM (PORCINE) 5000 UNITS/ML 1ML VIAL ONE (10:23)
[2022-04-06] MEDS ORDERED: ANGIOMAX 250 MG VIAL IV ONE (10:23)
[2022-04-06] MEDS ORDERED: fentaNYL CITRATE 100 MCG/2 ML VL ONE (10:24)
[2022-04-06] MEDS ORDERED: MIDAZOLAM HCL 2MG/2ML 2ml VIAL (1mg/ml) ONE (10:24)
[2022-04-06] MEDS ORDERED: IODIXANOL 320MG/ML 100ML BTL IV ONE (10:24)
[2022-04-06] MEDS ORDERED: SODIUM CHL 0.9% 0 ML ONE (10:24)
[2022-04-06] MEDS ORDERED: LIDOCAINE 2%HCL (LOCAL ANESTH.) INJ 20ML MDV ONE (10:24)
[2022-04-06] MEDS ORDERED: VERAPAMIL 2.5MG/ML INJ 2ML VIAL IV ONE (10:24)
== END 2022-04-06 13:23 | disposition home or self-care (01) ==
LOC: CATH 08:14
PROVIDERS: ATTEND Internal Medicine
DX: I25.10 Atherosclerotic heart disease of native coronary artery without angina pectoris (principal); J43.9 Emphysema, unspecified; Z82.49 Family history of ischemic heart disease and other diseases of the circulatory system; Z95.5 Presence of coronary angioplasty implant and graft; Z80.0 Family history of malignant neoplasm of digestive organs; Z90.11 Acquired absence of right breast and nipple; Z98.51 Tubal ligation status; Z20.822 Contact with and (suspected) exposure to COVID-19
CPT/HCPCS: 93458; C1769; C1887; C1894; J1644; J2250; J3010; Q9967; U0003; 99152

== ENCOUNTER → 2022-08-17 | Outpatient (CLI) | payer MEDICARE | END | disposition home or self-care (01) | LOC: LAB 10:02 | PROVIDERS: ATTEND Internal Medicine Pulmonary Disease | DX: Z01.812 Encounter for preprocedural laboratory examination (principal); Z20.822 Contact with and (suspected) exposure to COVID-19 | CPT/HCPCS: 36415; 87426 ==

== ENCOUNTER → 2022-08-18 | Outpatient (CLI) | payer MEDICARE ==
[~2022-08-18] MED LIST changes: +ALBUTEROL MEDNEB 2.5 mg/3ml NEB ONE
== END | disposition home or self-care (01) ==
LOC: RT 10:24
PROVIDERS: ATTEND Internal Medicine Pulmonary Disease
DX: J44.9 Chronic obstructive pulmonary disease, unspecified (principal); R06.09 Other forms of dyspnea; Z87.891 Personal history of nicotine dependence
CPT/HCPCS: 94060; 94727; 94729

== ENCOUNTER → 2022-11-14 | Outpatient (CLI) | payer MEDICARE ==
[~2022-11-14] MED LIST changes: -ALBUTEROL MEDNEB 2.5 mg/3ml NEB ONE; +READI-CAT 2 (BARIUM SULF)(VANILLA SMOOTHIE) 450ML ONE
== END | disposition home or self-care (01) ==
LOC: Rad HDHVI 11:20
PROVIDERS: ATTEND Internal Medicine Cardiovascular Disease
DX: R16.0 Hepatomegaly, not elsewhere classified (principal); K57.30 Diverticulosis of large intestine without perforation or abscess without bleeding; N20.0 Calculus of kidney; I70.0 Atherosclerosis of aorta
CPT/HCPCS: 74176